=== PATIENT | male | born 1960 | race African-American/Black ===

== ENCOUNTER 2016-08-05 15:13 | Inpatient (IN) | payer OTHER ==
[2016-08-05] MEDS ORDERED: FENTANYL CITRATE INJ/PF 100 MCG/2 ML AMPUL ONE ×2 (15:20→16:14)
[2016-08-05] MEDS ORDERED: ONDANSETRON HCL INJ/PF 4 MG/2 ML SDV ONE (15:25)
[2016-08-05 15:26] LABS: ABSOLUTE EOSINOPHILS # (AUTO) 0.1 10^3/uL (0.0-0.6); ABSOLUTE LYMPHOCYTES (AUTO) 3.6 10^3/uL (0.5-4.7); ABSOLUTE MONOCYTES (AUTO) 0.9 10^3/uL (0.1-1.4); ABSOLUTE NEUT (AUTO) 3.8 10^3/uL (1.7-8.2); BASOPHILS % (AUTO) 0.4 % (0-2); EOSINOPHILS % (AUTO) 0.7 % (0-6); HEMOGLOBIN 12.7 g/dL (13.5-17.0); HGB HCT DIFFERENCE -0.9; MEAN CORPUSCULAR HEMOGLOBIN 30.2 pg (27.0-33.4); MEAN CORPUSCULAR HGB CONC 32.5 g/dL (32.0-36.0); MEAN CORPUSCULAR VOLUME 93 fl (80-97); MONOCYTES % (AUTO) 11.1 % (3-13); RED BLOOD COUNT 4.19 10^6/uL (4.35-5.55); RED CELL DISTRIBUTION WIDTH 12.8 % (11.5-14.0); SEGMENTED NEUTROPHILS % (AUTO) 44.8 % (42-78); WHITE BLOOD COUNT 8.5 10^3/uL (4.0-10.5)
[2016-08-05 15:39] LABS: ALANINE AMINOTRANSFERASE 25 U/L (21-72); ALBUMIN 3.6 g/dL (3.5-5.0); ALKALINE PHOSPHATASE 68 U/L (38-126); ANION GAP 13 (5-19); ASPARTATE AMINO TRANSFERASE 23 U/L (17-59); BILIRUBIN,TOTAL 0.4 mg/dL (0.2-1.3); BLOOD UREA NITROGEN 14 mg/dL (7-20); CALCIUM 9.1 mg/dL (8.4-10.2); CARBON DIOXIDE 24 mmol/L (22-30); CHLORIDE 106 mmol/L (98-107); CREATININE RESULT 0.95 mg/dL (0.52-1.25); GLUCOSE 146 mg/dL (75-110); POTASSIUM 3.8 mmol/L (3.6-5.0); SODIUM 142.5 mmol/L (137-145); TOTAL PROTEIN 5.9 g/dL (6.3-8.2)
[2016-08-05] MEDS ORDERED: NORMAL SALINE 1000 ML 1,000 ML IV ONE (16:02)
[2016-08-05 16:17] LABS: PARTIAL THROMBOPLASTIN TIME 25.3 SEC (23.5-35.8); PROTHROMBIN TIME 12.6 SEC (11.4-15.4)
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
[2016-08-05] MEDS ORDERED: DIPH/PERTUSS(ACELL)/TETANUS VAC/PF 0.5 ML SYR (>=10YO) IM ONE (16:53)
[2016-08-05] MEDS ORDERED: MORPHINE SULFATE 10 MG/ML INJ IV PRN (16:53)
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
[2016-08-05] MEDS ORDERED: ONDANSETRON HCL INJ/PF 4 MG/2 ML SDV IV PRN ×2 (17:16→22:04)
[2016-08-05] MEDS: NORMAL SALINE 1000 ML 1,000 ML IV PRN ×3 (17:55→22:16)
--- NOTE | 2016-08-05 19:09 | EKG REPORT ---
SEVERITY:- BORDERLINE ECG - SINUS RHYTHM NONSPECIFIC ST-T CHANGES LATERAL LEADS. : Confirmed by: Jeff Oliver MD 05-Aug-2016 19:08:18
[2016-08-05] MEDS ORDERED: RINGERS SOLUTION,LACTATED 1,000 ML IV PRN (22:04)
[2016-08-05] MEDS: MORPHINE SULFATE 10 MG/ML INJ IV PRN (22:41)
[2016-08-06] MEDS: MORPHINE SULFATE 10 MG/ML INJ IV PRN ×3 (00:33→07:48)
[2016-08-06] MEDS ORDERED: INFLUENZA ADLT QUAD (36MOS+) 2016-17 VAC 0.5 ML SYR IM PRN (03:02)
[2016-08-06 05:10] LABS: APPEARANCE,URINE CLEAR; BILIRUBIN,URINE NEGATIVE (NEGATIVE); GLUCOSE, URINE >=500 mg/dL (NEGATIVE); KETONES,URINE 20 mg/dL (NEGATIVE); LEUKOCYTE ESTERASE,URINE NEGATIVE (NEGATIVE); NITRITE,URINE NEGATIVE (NEGATIVE); PROTEIN,URINE NEGATIVE (NEGATIVE); URINE SPECIFIC GRAVITY 1.027; UROBILINOGEN,URINE NEGATIVE mg/dL (<2.0)
[2016-08-06 05:27] LABS: URINE BARBITURATES SCREEN NEGATIVE; URINE METHADONE SCREEN NEGATIVE; URINE PHENCYCLIDINE SCREEN NEGATIVE
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
[2016-08-06] MEDS ORDERED: DIPHENHYDRAMINE HCL 50 MG/ML VIAL IV PRN (09:17)
[2016-08-06] MEDS ORDERED: VECURONIUM BROMIDE INJ 10 MG VIAL IV ONE (10:39)
[2016-08-06] MEDS ORDERED: ONDANSETRON HCL INJ/PF 4 MG/2 ML SDV ONE (10:39)
[2016-08-06] MEDS ORDERED: LIDOCAINE 2% INJ-PF (20 MG/ML) 10 ML AMPUL ONE (10:39)
[2016-08-06] MEDS ORDERED: GLYCOPYRROLATE INJ 0.4 MG/2 ML VIAL ONE (10:39)
[2016-08-06] MEDS ORDERED: PHENYLEPHRINE HCL INJ/PF 10 MG/1 ML SDV ONE (10:39)
[2016-08-06] MEDS ORDERED: NEOSTIGMINE METHYLSULFATE 10 MG/10 ML VIAL ONE (10:39)
[2016-08-06] MEDS ORDERED: SUCCINYLCHOLINE CHLORIDE INJ 200 MG/10 ML VIAL ONE (10:39)
[2016-08-06] MEDS ORDERED: HYDROMORPHONE HCL INJ/PF 2 MG/ML AMPULE ONE (13:27)
[2016-08-06] MEDS ORDERED: FENTANYL CITRATE INJ/PF 250 MCG/5 ML AMPULE ONE (13:27)
[2016-08-06] MEDS ORDERED: MIDAZOLAM 2 MG/2 ML INJ ONE (13:27)
[2016-08-06] MEDS ORDERED: PROPOFOL INJ 200 MG/20 ML VIAL IV ONE (13:28)
[2016-08-06] MEDS ORDERED: CEFAZOLIN INJ 1 GM VIAL ONE (13:30)
[2016-08-06] MEDS ORDERED: MEPERIDINE HCL/PF INJ 25 MG/1 ML DISP.SYRIN IV PRN (15:04)
[2016-08-06] MEDS ORDERED: FENTANYL CITRATE INJ/PF 100 MCG/2 ML AMPUL IV PRN ×3 (15:04)
[2016-08-06] MEDS ORDERED: MORPHINE SULFATE 10 MG/ML INJ IV PRN ×2 (15:04→15:37)
[2016-08-06] MEDS ORDERED: PROMETHAZINE HCL INJ 25 MG/1 ML VIAL IV PRN ×2 (15:04)
--- NOTE | 2016-08-06 15:15 | Operative Report ---
Operative Report DATE OF SURGERY: 08/06/16 PREOPERATIVE DIAGNOSIS: Left femur fracture OPERATION: Open reduction and internal fixation of left femur fracture SURGEON: FOSTER POTTER ANESTHESIA: GA ESTIMATED BLOOD LOSS: 250 PROCEDURE: The patient's placed on the fracture table in a supine position and the left lower extremity was manipulated to effect a near-anatomic reduction. Of note it 's over distracted at the fracture site which I felt was acceptable. During the initial aspects of the open reduction internal fixation. Also, the proximal fragment is flexed an extra rotated consistent with continued attachment of the psoas. The left looks terms prepped and draped in a sterile fashion. A pin is placed percutaneously through the greater trochanter to down into the proximal metaphysis. A combined reamers used to fashion a cortical opening. A ball- tipped guide mindy is then through the proximal fragment into the distal fragment and then down into the suprapatellar region. Nail length measures 380 mm. Subsequently a [place] 3 gamma nail 11 x 3 80 x 130 his advanced over the ball- tipped guide mindy to appropriate depth the proximal interlock. A 95 mm proximal interlock is placed uneventfully. 3 cerclage cables were then placed around the comminuted aspect of the metadiaphysis. One of the cables, the proximal one , his used to help reduce the flexion and external rotation of the proximal fragment. At this point, the distraction was taken off the fracture table to allow the fracture to collapse. With fluoroscopic guidance the rotation across the fracture site is attempted to be reduced, although anatomic landmarks for this are difficult. This is done with one finger on the greater trochanter and rotating the foot such that the greater trochanter and the axis of the knee seemed to be collinear. Subsequently under fluoroscopic guidance a 52.5 mm distal interlock is placed uneventfully. The wounds irrigated and closed using interrupted Vicryl followed by flavia. Patient's returned to PACU in satisfactory condition.
[2016-08-06] MEDS ORDERED: OXYCODONE HCL IR 5 MG TABLET PO PRN (15:38)
[2016-08-06] MEDS ORDERED: ONDANSETRON 4 MG TAB.RAPDIS SL PRN (15:39)
[2016-08-06] MEDS ORDERED: DEXTROSE 50%-WATER SYRINGE 12.5 GM/25 ML DOSE IV PRN (15:42)
[2016-08-06] MEDS ORDERED: DEXTROSE 40% GEL 15 GM TUBE PO PRN (15:42)
[2016-08-06] MEDS ORDERED: DEXTROSE 40% GEL 15 GM TUBE X 2 PO PRN (15:42)
[2016-08-06] MEDS ORDERED: DEXTROSE 50%-WATER SYRINGE 25 GM/50 ML DOSE IV PRN (15:42)
[2016-08-06] MEDS ORDERED: GLUCAGON,HUMAN RECOMB 1 MG INJ IM PRN (15:42)
[2016-08-06] MEDS: FENTANYL CITRATE INJ/PF 100 MCG/2 ML AMPUL ONE ×2 (16:00→16:04)
[2016-08-06] MEDS ORDERED: PROMETHAZINE HCL INJ 25 MG/1 ML VIAL ONE (16:12)
[2016-08-06] MEDS: DIPHENHYDRAMINE HCL 50 MG/ML VIAL IV PRN ×2 (16:14→16:25)
[2016-08-06] MEDS ORDERED: NALOXONE HCL INJ/PF 0.4 MG/1 ML SDV IV ONE (18:27)
[2016-08-06] MEDS ORDERED: NORMAL SALINE 1000 ML 2,000 ML IV ONE (18:51)
[2016-08-06] MEDS ORDERED: NORMAL SALINE 1000 ML 1,000 ML IV PRN ×2 (18:51→19:25)
[2016-08-06] MEDS ORDERED: NALOXONE HCL INJ/PF 0.4 MG/1 ML SDV IV PRN (18:52)
[2016-08-06] MEDS ORDERED: INSULIN REG, HUMAN 100 UNIT/ML 3 ML VIAL (PYX) IV ONE (18:57)
[2016-08-06] MEDS ORDERED: PROMETHAZINE HCL 25 MG SUPP.RECT PR PRN ×2 (18:57→19:13)
[2016-08-06] MEDS ORDERED: DIPHENHYDRAMINE HCL 25 MG CAPSULE PO PRN (18:59)
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
[2016-08-06] MEDS ORDERED: TRANEXAMIC ACID INJ/PF 1,000 MG/10 ML SDV IV ONE ×5 (19:40→23:00)
[2016-08-06 19:56] LABS: PROTHROMBIN TIME 14.8 SEC (11.4-15.4)
[2016-08-06 19:57] LABS: PARTIAL THROMBOPLASTIN TIME 31.2 SEC (23.5-35.8)
[2016-08-06 20:03] LABS: FIBRINOGEN 282 mg/dL (209-497)
[2016-08-06 20:07] LABS: ABSOLUTE MONOCYTES (AUTO) 1.3 10^3/uL (0.1-1.4); ABSOLUTE NEUT (AUTO) 7.7 10^3/uL (1.7-8.2); BASOPHILS % (AUTO) 0.3 % (0-2); HEMATOCRIT 21.6 % (37.9-51.0); HGB HCT DIFFERENCE -0.6; MEAN CORPUSCULAR HEMOGLOBIN 30.3 pg (27.0-33.4); MEAN CORPUSCULAR HGB CONC 32.4 g/dL (32.0-36.0); MEAN CORPUSCULAR VOLUME 94 fl (80-97); MONOCYTES % (AUTO) 13.3 % (3-13); RED BLOOD COUNT 2.31 10^6/uL (4.35-5.55); RED CELL DISTRIBUTION WIDTH 12.9 % (11.5-14.0); SEGMENTED NEUTROPHILS % (AUTO) 76.4 % (42-78); WHITE BLOOD COUNT 10.1 10^3/uL (4.0-10.5)
[2016-08-06 20:08] LABS: ANION GAP 9 (5-19); BLOOD UREA NITROGEN 10 mg/dL (7-20); CARBON DIOXIDE 22 mmol/L (22-30); CHLORIDE 106 mmol/L (98-107); CREATININE RESULT 0.78 mg/dL (0.52-1.25); GLUCOSE 286 mg/dL (75-110); POTASSIUM 4.3 mmol/L (3.6-5.0); SODIUM 137.2 mmol/L (137-145)
[2016-08-06] MEDS: IBUPROFEN 800 MG in NORMAL SALINE 250 ML IV SCH (21:39)
[2016-08-06] MEDS ORDERED: RIVAROXABAN 10 MG TABLET PO SCH (22:00)
[2016-08-06] MEDS: INSULIN LISPRO 100 UNIT/ML 3 ML VIAL SUBCUT PRN (23:08)
[2016-08-06] MEDS: FENTANYL CITRATE INJ/PF 100 MCG/2 ML AMPUL IV PRN (23:08)
[2016-08-06] MEDS: SENNOSIDES/DOCUSATE 8.6-50 MG 1 EACH TABLET PO SCH (23:09)
[2016-08-07] MEDS: IBUPROFEN 800 MG in NORMAL SALINE 250 ML IV SCH ×3 (03:05→17:54)
[2016-08-07] MEDS: FENTANYL CITRATE INJ/PF 100 MCG/2 ML AMPUL IV PRN ×2 (03:13→10:14)
[2016-08-07 05:51] LABS: HEMATOCRIT 22.5 % (37.9-51.0); HGB HCT DIFFERENCE 0.3; LYMPHOCYTES % (AUTO) 12.8 % (13-45); MEAN CORPUSCULAR HEMOGLOBIN 30.3 pg (27.0-33.4); MEAN CORPUSCULAR HGB CONC 33.8 g/dL (32.0-36.0); MONOCYTES % (AUTO) 19.1 % (3-13); RED BLOOD COUNT 2.51 10^6/uL (4.35-5.55); RED CELL DISTRIBUTION WIDTH 14.4 % (11.5-14.0); SEGMENTED NEUTROPHILS % (AUTO) 67.9 % (42-78); WHITE BLOOD COUNT 10.6 10^3/uL (4.0-10.5)
[2016-08-07 05:52] LABS: ABSOLUTE LYMPHOCYTES (AUTO) 1.3 10^3/uL (0.5-4.7); ABSOLUTE NEUT (AUTO) 7.2 10^3/uL (1.7-8.2); BASOPHILS % (AUTO) 0.1 % (0-2); EOSINOPHILS % (AUTO) 0.1 % (0-6)
[2016-08-07 05:59] LABS: MEAN CORPUSCULAR VOLUME 90 fl (80-97)
[2016-08-07 06:01] LABS: HEMOGLOBIN 7.6 g/dL (13.5-17.0)
[2016-08-07 06:06] LABS: ANION GAP 6 (5-19); BLOOD UREA NITROGEN 7 mg/dL (7-20); CALCIUM 7.4 mg/dL (8.4-10.2); CARBON DIOXIDE 25 mmol/L (22-30); CHLORIDE 108 mmol/L (98-107); CREATININE RESULT 0.77 mg/dL (0.52-1.25); GLUCOSE 166 mg/dL (75-110); POTASSIUM 3.6 mmol/L (3.6-5.0); SODIUM 138.6 mmol/L (137-145)
[2016-08-07] MEDS ORDERED: NORMAL SALINE 250 ML IV PRN ×3 (06:37→07:23)
[2016-08-07 06:38] LABS: MAGNESIUM 1.2 mg/dL (1.6-2.3)
[2016-08-07] MEDS: ACETAMINOPHEN 325 MG TABLET PO PRN (06:40)
[2016-08-07] MEDS ORDERED: MAGNESIUM SULFATE/D5W 1 GM/100 ML RTUPB IV ONE (06:53)
[2016-08-07] MEDS ORDERED: FUROSEMIDE INJ/PF 20 MG/2 ML SDV IV ONE ×2 (07:55→14:30)
--- NOTE | 2016-08-07 07:59 | PDOC PROGRESS REPORT ---
Subjective Progress Note for:: 08/07/16 Subjective:: Patient with significant complaints of pain Physical Exam Vital Signs: Temp Pulse Resp BP Pulse Ox 37.2 C 120 H 18 131/65 H 98 08/07/16 06:50 08/07/16 06:50 08/07/16 06:50 08/07/16 06:50 08/07/16 06:50 Intake & Output 08/06/16 08/07/16 08/08/16 06:59 06:59 06:59 Intake Total 336 7800 Output Total 650 1950 Balance -314 5850 Weight 60.4 kg General appearance: PRESENT: mild distress Head exam: PRESENT: normocephalic Eye exam: PRESENT: EOMI Respiratory exam: PRESENT: unlabored Cardiovascular exam: PRESENT: RRR Pulses: PRESENT: +1 pedal pulses bilateral Vascular exam: PRESENT: normal capillary refill GI/Abdominal exam: PRESENT: soft Rectal exam: PRESENT: deferred Extremities exam: PRESENT: other - Left lower extremity dressing change. Wound is well approximated without erythema. There is serosanguineous drainage expressible from the central wound. Proximal and distal wounds appear to be relatively dry. Neurological exam: PRESENT: alert, awake, oriented to person, oriented to place , oriented to time, oriented to situation, CN II-XII grossly intact. ABSENT: motor sensory deficit Psychiatric exam: PRESENT: appropriate affect, normal mood. ABSENT: homicidal ideation, suicidal ideation Results Laboratory Results: 08/07/16 00:43 08/07/16 04:32 08/06/16 08/06/16 08/07/16 19:36 19:36 00:43 WBC 10.1 10.6 H RBC 2.31 L 2.51 L Hgb 7.0 L D 7.6 L Hct 21.6 L 22.5 L MCV 94 90 D MCH 30.3 30.3 MCHC 32.4 33.8 RDW 12.9 14.4 H Plt Count 150 129 L Seg Neutrophils % 76.4 67.9 Lymphocytes % 10.0 L 12.8 L Monocytes % 13.3 H 19.1 H Eosinophils % 0.0 0.1 Basophils % 0.3 0.1 Absolute Neutrophils 7.7 7.2 Absolute Lymphocytes 1.0 1.3 Absolute Monocytes 1.3 2.0 H Absolute Eosinophils 0.0 0.0 Absolute Basophils 0.0 0.0 Sodium 137.2 Potassium 4.3 Chloride 106 Carbon Dioxide 22 Anion Gap 9 BUN 10 Creatinine 0.78 Est GFR ( Amer) > 60 Est GFR (Non-Af Amer) > 60 Glucose 286 H Calcium 8.0 L Magnesium 08/07/16 04:32 WBC RBC Hgb Hct MCV MCH MCHC RDW Plt Count Seg Neutrophils % Lymphocytes % Monocytes % Eosinophils % Basophils % Absolute Neutrophils Absolute Lymphocytes Absolute Monocytes Absolute Eosinophils Absolute Basophils Sodium 138.6 Potassium 3.6 Chloride 108 H Carbon Dioxide 25 Anion Gap 6 BUN 7 Creatinine 0.77 Est GFR ( Amer) > 60 Est GFR (Non-Af Amer) > 60 Glucose 166 H Calcium 7.4 L Magnesium 1.2 L* Impressions: Abdomen/Pelvis CT 08/05/16 15:19 IMPRESSION: 1. No traumatic vascular, solid organ, hollow viscous organ, or bony injury identified within the chest, abdomen, or pelvis. 2. Partially visualized comminuted fracture of the proximal diaphysis of the left femur. Please see separate report from the lower extremity for full details regarding the finding. Cervical Spine CT 08/05/16 15:19 IMPRESSION: CHRONIC DEGENERATIVE CHANGES. NO ACUTE FINDINGS. Nodular density noted in the left lung apex likely representing scar versus underlying nodule. Chest CT 08/05/16 15:19 IMPRESSION: 1. No traumatic vascular, solid organ, hollow viscous organ, or bony injury identified within the chest, abdomen, or pelvis. 2. Partially visualized comminuted fracture of the proximal diaphysis of the left femur. Please see separate report from the lower extremity for full details regarding the finding. Chest X-Ray 08/05/16 15:19 IMPRESSION: No acute abnormality identified Head CT 08/05/16 15:19 IMPRESSION: No acute intracranial abnormality identified. Small posterior scalp hematoma. No skull fracture. Hip X-Ray 08/05/16 15:19 IMPRESSION: Comminuted fracture of the proximal diaphysis of the left femur with multiple small butterfly fragment seen throughout. The distal fragment appears to be proximally and medially displaced relation to more proximal fragment. No other fractures identified. Hand X-Ray 08/05/16 15:25 IMPRESSION: 1. Linear fracture through the base of the 1st metacarpal on the left. Obliquely oriented fracture through the lateral aspect of the distal 5th proximal phalanx. There is minimal displacement of the fracture fragments. 2. No acute fracture or dislocation identified in the right hand. Lower Extremity CT 08/05/16 15:26 IMPRESSION: Highly comminuted proximal left femoral diaphysis fracture at and just distal the level of the left lesser trochanter. There is angulation and foreshortening at the fracture site Femur X-Ray 08/06/16 00:00 IMPRESSION: Intra procedural imaging and fluoro Fluoroscopy 08/06/16 00:00 IMPRESSION: Intra procedural imaging and fluoro Assessment & Plan - Diagnosis (1) Diabetes Qualifiers: Diabetes mellitus type: type 2 Diabetes mellitus complication status: with neurologic complications Diabetes mellitus complication detail: with polyneuropathy Diabetes mellitus chcf insulin use: with chcf use Qualified Code(s): E11.42 - Type 2 diabetes mellitus with diabetic polyneuropathy; Z79.4 - jail (current) use of insulin Is this a current diagnosis for this admission?: YesPlan: Diabetes with moderate control under the Humalog sliding scale (2) Fracture of proximal end of left femur Qualifiers: Encounter type: initial encounter Fracture type: closed Qualified Code(s): S72.002A - Fracture of unspecified part of neck of left femur, initial encounter for closed fracture Is this a current diagnosis for this admission?: YesPlan: Patient is postop day #1 status post open reduction and fixation of a highly comminuted left proximal femur fracture sustained a high-energy injury. Plan will be to mobilize and a weightbearing as tolerated basis. When medical condition permits. (3) Acute blood loss as cause of postoperative anemia Is this a current diagnosis for this admission?: YesPlan: Patient with a low hematocrit who received 2 units of packed red blood cells last night and continued hematocrit of approximately 21%. Additional blood has been ordered by myself as well as Dr. Faust. Plan will be for repeat hematocrit later today - Time Time Spent with patient: 15-24 minutes Anticipated discharge: Home with Homehealth Within: within 72 hours
[2016-08-07] MEDS ORDERED: DIAZEPAM 5 MG TABLET PO PRN (08:00)
[2016-08-07] MEDS ORDERED: OLANZAPINE 5 MG TAB.RAPDIS PO PRN (08:02)
[2016-08-07] MEDS: MAGNESIUM SULFATE 1 GM/D5W 100 ML IV SCH ×2 (08:24→08:41)
[2016-08-07] MEDS ORDERED: POTASSIUM CHLORIDE 10 MEQ TABLET.SA PO ONE (08:30)
[2016-08-07] MEDS: HUM INSULIN NPH/REG INSULIN HM 100 UNIT/1 ML 3 ML SUBCUT SCH ×2 (08:42→16:52)
[2016-08-07] MEDS ORDERED: (PENDING PHARMACY ID) (Insulin Aspart [Novolog Flexpen] 10 UNITS) SQ SCH (10:00)
[2016-08-07] MEDS: GABAPENTIN 300 MG CAPSULE PO SCH ×3 (10:16→17:53)
[2016-08-07] MEDS: MAGNESIUM OXIDE 400 MG TABLET PO SCH ×3 (10:16→17:53)
[2016-08-07] MEDS: DOCUSATE SODIUM 100 MG CAPSULE PO SCH ×2 (10:16→17:53)
[2016-08-07] MEDS ORDERED: FENTANYL CITRATE INJ/PF 100 MCG/2 ML AMPUL IV PRN (12:36)
[2016-08-07] MEDS: INSULIN LISPRO 100 UNIT/ML 3 ML VIAL SUBCUT SCH ×2 (13:29→17:55)
--- NOTE | 2016-08-07 14:52 | PDOC PROGRESS REPORT ---
Subjective Progress Note for:: 08/07/16 Subjective:: Patient is drifting off during my questioning. Pain is well-controlled. Patient denies chest pain, shortness of breath, abdominal pain, nausea, vomiting , fevers, chills, diarrhea, constipation, headache. Physical Exam Vital Signs: Temp Pulse Resp BP Pulse Ox 99 F 120 H 18 131/65 H 98 08/07/16 06:50 08/07/16 06:50 08/07/16 06:50 08/07/16 06:50 08/07/16 06:50 Intake & Output 08/06/16 08/07/16 08/08/16 06:59 06:59 06:59 Intake Total 336 7800 Output Total 650 1950 Balance -314 5850 Weight 60.4 kg Exam: General: Sleepy, but arouses easily, no acute respiratory distress HEENT: AT/NC, PERRL, EOMI, oropharynx is moist, pink, no scleral icterus, no conjunctival injection Neck: No JVD, trachea midline Chest: Clear to auscultation bilaterally, no wheezes rhonchi or rales CV: Tachycardic, Regular rate and rhythm, normal S1 and S2, no murmur, rub, or gallop Abdomen: Soft, nontender to palpation, nondistended, active bowel sounds; no rebound, rigidity, or guarding Extremities: No cyanosis, clubbing; significant left leg edema Neuro: Cranial nerves II through XII are grossly intact without focal deficits Psych: Normal mood and affect Results Laboratory Results: 08/07/16 00:43 08/07/16 04:32 08/06/16 08/06/16 08/07/16 19:36 19:36 00:43 WBC 10.1 10.6 H RBC 2.31 L 2.51 L Hgb 7.0 L D 7.6 L Hct 21.6 L 22.5 L MCV 94 90 D MCH 30.3 30.3 MCHC 32.4 33.8 RDW 12.9 14.4 H Plt Count 150 129 L Seg Neutrophils % 76.4 67.9 Lymphocytes % 10.0 L 12.8 L Monocytes % 13.3 H 19.1 H Eosinophils % 0.0 0.1 Basophils % 0.3 0.1 Absolute Neutrophils 7.7 7.2 Absolute Lymphocytes 1.0 1.3 Absolute Monocytes 1.3 2.0 H Absolute Eosinophils 0.0 0.0 Absolute Basophils 0.0 0.0 Sodium 137.2 Potassium 4.3 Chloride 106 Carbon Dioxide 22 Anion Gap 9 BUN 10 Creatinine 0.78 Est GFR ( Amer) > 60 Est GFR (Non-Af Amer) > 60 Glucose 286 H Calcium 8.0 L Magnesium 08/07/16 04:32 WBC RBC Hgb Hct MCV MCH MCHC RDW Plt Count Seg Neutrophils % Lymphocytes % Monocytes % Eosinophils % Basophils % Absolute Neutrophils Absolute Lymphocytes Absolute Monocytes Absolute Eosinophils Absolute Basophils Sodium 138.6 Potassium 3.6 Chloride 108 H Carbon Dioxide 25 Anion Gap 6 BUN 7 Creatinine 0.77 Est GFR ( Amer) > 60 Est GFR (Non-Af Amer) > 60 Glucose 166 H Calcium 7.4 L Magnesium 1.2 L* Impressions: Abdomen/Pelvis CT 08/05/16 15:19 IMPRESSION: 1. No traumatic vascular, solid organ, hollow viscous organ, or bony injury identified within the chest, abdomen, or pelvis. 2. Partially visualized comminuted fracture of the proximal diaphysis of the left femur. Please see separate report from the lower extremity for full details regarding the finding. Cervical Spine CT 08/05/16 15:19 IMPRESSION: CHRONIC DEGENERATIVE CHANGES. NO ACUTE FINDINGS. Nodular density noted in the left lung apex likely representing scar versus underlying nodule. Chest CT 08/05/16 15:19 IMPRESSION: 1. No traumatic vascular, solid organ, hollow viscous organ, or bony injury identified within the chest, abdomen, or pelvis. 2. Partially visualized comminuted fracture of the proximal diaphysis of the left femur. Please see separate report from the lower extremity for full details regarding the finding. Chest X-Ray 08/05/16 15:19 IMPRESSION: No acute abnormality identified Head CT 08/05/16 15:19 IMPRESSION: No acute intracranial abnormality identified. Small posterior scalp hematoma. No skull fracture. Hip X-Ray 08/05/16 15:19 IMPRESSION: Comminuted fracture of the proximal diaphysis of the left femur with multiple small butterfly fragment seen throughout. The distal fragment appears to be proximally and medially displaced relation to more proximal fragment. No other fractures identified. Hand X-Ray 08/05/16 15:25 IMPRESSION: 1. Linear fracture through the base of the 1st metacarpal on the left. Obliquely oriented fracture through the lateral aspect of the distal 5th proximal phalanx. There is minimal displacement of the fracture fragments. 2. No acute fracture or dislocation identified in the right hand. Lower Extremity CT 08/05/16 15:26 IMPRESSION: Highly comminuted proximal left femoral diaphysis fracture at and just distal the level of the left lesser trochanter. There is angulation and foreshortening at the fracture site Femur X-Ray 08/06/16 00:00 IMPRESSION: Intra procedural imaging and fluoro Fluoroscopy 08/06/16 00:00 IMPRESSION: Intra procedural imaging and fluoro Assessment & Plan - Diagnosis (1) Acute metabolic encephalopathy Is this a current diagnosis for this admission?: YesPlan: Resolved. Continue when necessary Narcan. Will decrease patient's IV fentanyl at this time as his last dose was more than 2 hours ago and he still quite lethargic. (2) Cocaine abuse Is this a current diagnosis for this admission?: YesPlan: Avoid beta blockers. When necessary Valium and Zyprexa (3) Diabetic neuropathy Qualifiers: Diabetes mellitus type: type 1 Diabetes mellitus complication detail: diabetic polyneuropathy Qualified Code(s): E10.42 - Type 1 diabetes mellitus with diabetic polyneuropathy Is this a current diagnosis for this admission?: YesPlan: Continue Neurontin (4) Abrasions of multiple sites Is this a current diagnosis for this admission?: Yes (5) Diabetes Qualifiers: Diabetes mellitus type: type 2 Diabetes mellitus complication status: with neurologic complications Diabetes mellitus complication detail: with polyneuropathy Diabetes mellitus correction insulin use: with lumber trimmer use Qualified Code(s): E11.42 - Type 2 diabetes mellitus with diabetic polyneuropathy; 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 Have advised mother that Moriah is not on his diabetic diet. Have emphasized the need for good glucose control for wound management. (6) Fracture of proximal end of left femur Qualifiers: Encounter type: initial encounter Fracture type: closed Qualified Code(s): S72.002A - Fracture of unspecified part of neck of left femur, initial encounter for closed fracture Is this a current diagnosis for this admission?: YesPlan: Defer to orthopedics. Postoperative day #1 (7) Acute blood loss as cause of postoperative anemia Is this a current diagnosis for this admission?: YesPlan: Patient will receive 3 units of packed red blood cells and then we will recheck a CBC prior to giving any others. (8) Hypomagnesemia Is this a current diagnosis for this admission?: YesPlan: We'll replete and recheck - Time Time Spent with patient: 25-34 minutes Medications reviewed and adjusted accordingly: Yes
[2016-08-07 15:35] LABS: ABSOLUTE LYMPHOCYTES (AUTO) 1.7 10^3/uL (0.5-4.7); ABSOLUTE MONOCYTES (AUTO) 1.5 10^3/uL (0.1-1.4); ABSOLUTE NEUT (AUTO) 6.8 10^3/uL (1.7-8.2); BASOPHILS % (AUTO) 0.2 % (0-2); EOSINOPHILS % (AUTO) 0.1 % (0-6); HEMATOCRIT 26.8 % (37.9-51.0); HEMOGLOBIN 8.9 g/dL (13.5-17.0); HGB HCT DIFFERENCE -0.1; MEAN CORPUSCULAR HGB CONC 33.2 g/dL (32.0-36.0); MEAN CORPUSCULAR VOLUME 91 fl (80-97); MONOCYTES % (AUTO) 14.5 % (3-13); RED BLOOD COUNT 2.96 10^6/uL (4.35-5.55); RED CELL DISTRIBUTION WIDTH 14.3 % (11.5-14.0); SEGMENTED NEUTROPHILS % (AUTO) 68.2 % (42-78)
[2016-08-07 16:00] LABS: ANION GAP 8 (5-19); BLOOD UREA NITROGEN 7 mg/dL (7-20); CALCIUM 7.7 mg/dL (8.4-10.2); CARBON DIOXIDE 23 mmol/L (22-30); CHLORIDE 107 mmol/L (98-107); CREATININE RESULT 0.71 mg/dL (0.52-1.25); GLUCOSE 187 mg/dL (75-110); POTASSIUM 3.8 mmol/L (3.6-5.0); SODIUM 137.5 mmol/L (137-145)
[2016-08-07] MEDS: OXYCODONE HCL IR 5 MG TABLET PO PRN (21:51)
[2016-08-07] MEDS: SENNOSIDES/DOCUSATE 8.6-50 MG 1 EACH TABLET PO SCH (21:52)
[2016-08-07] MEDS: INSULIN LISPRO 100 UNIT/ML 3 ML VIAL SUBCUT PRN (21:55)
[2016-08-08] MEDS: IBUPROFEN 800 MG in NORMAL SALINE 250 ML IV SCH ×2 (01:18→09:02)
[2016-08-08 06:42] LABS: ABSOLUTE EOSINOPHILS # (AUTO) 0.1 10^3/uL (0.0-0.6); ABSOLUTE LYMPHOCYTES (AUTO) 1.6 10^3/uL (0.5-4.7); ABSOLUTE MONOCYTES (AUTO) 1.5 10^3/uL (0.1-1.4); ABSOLUTE NEUT (AUTO) 7.1 10^3/uL (1.7-8.2); BASOPHILS % (AUTO) 0.3 % (0-2); EOSINOPHILS % (AUTO) 0.8 % (0-6); HEMATOCRIT 23.4 % (37.9-51.0); HEMOGLOBIN 8.1 g/dL (13.5-17.0); HGB HCT DIFFERENCE 0.9; LYMPHOCYTES % (AUTO) 15.4 % (13-45); MEAN CORPUSCULAR HEMOGLOBIN 30.7 pg (27.0-33.4); MEAN CORPUSCULAR HGB CONC 34.6 g/dL (32.0-36.0); MEAN CORPUSCULAR VOLUME 89 fl (80-97); MONOCYTES % (AUTO) 14.9 % (3-13); RED BLOOD COUNT 2.64 10^6/uL (4.35-5.55); RED CELL DISTRIBUTION WIDTH 14.1 % (11.5-14.0); SEGMENTED NEUTROPHILS % (AUTO) 68.6 % (42-78); WHITE BLOOD COUNT 10.3 10^3/uL (4.0-10.5)
[2016-08-08] MEDS: OXYCODONE HCL IR 5 MG TABLET PO PRN ×4 (06:46→22:43)
[2016-08-08 07:19] LABS: BLOOD UREA NITROGEN 6 mg/dL (7-20); CALCIUM 7.7 mg/dL (8.4-10.2); CHLORIDE 110 mmol/L (98-107); CREATININE RESULT 0.75 mg/dL (0.52-1.25); GLUCOSE 218 mg/dL (75-110); POTASSIUM 3.8 mmol/L (3.6-5.0)
[2016-08-08 07:34] LABS: ANION GAP 5 (5-19); CARBON DIOXIDE 24 mmol/L (22-30); SODIUM 139.1 mmol/L (137-145)
[2016-08-08] MEDS: INSULIN LISPRO 100 UNIT/ML 3 ML VIAL SUBCUT SCH ×3 (09:01→17:52)
[2016-08-08] MEDS: ACETAMINOPHEN 325 MG TABLET PO PRN ×2 (09:02→13:45)
[2016-08-08] MEDS: MAGNESIUM OXIDE 400 MG TABLET PO SCH ×3 (09:03→17:52)
[2016-08-08] MEDS: GABAPENTIN 300 MG CAPSULE PO SCH ×3 (09:03→17:52)
[2016-08-08] MEDS: DOCUSATE SODIUM 100 MG CAPSULE PO SCH ×2 (09:03→17:52)
--- NOTE | 2016-08-08 10:05 | PDOC PROGRESS REPORT ---
Subjective Progress Note for:: 08/08/16 Subjective:: Patient reports less pain than previously Physical Exam Vital Signs: Temp Pulse Resp BP Pulse Ox 37.2 C 102 H 16 119/69 98 08/08/16 08:00 08/08/16 08:00 08/08/16 08:00 08/08/16 08:00 08/08/16 08:00 Intake & Output 08/07/16 08/08/16 08/09/16 06:59 06:59 06:59 Intake Total 7800 1500 Output Total 1950 400 Balance 5850 1100 General appearance: PRESENT: mild distress Head exam: PRESENT: normocephalic Eye exam: PRESENT: EOMI Pulses: PRESENT: +1 pedal pulses bilateral Vascular exam: PRESENT: normal capillary refill GI/Abdominal exam: PRESENT: soft Extremities exam: PRESENT: other - Reinforce dressings on the left lower extremity are intact with minor drainage. Leg lengths are equal. Distal neurovascular examinations intact. Results Laboratory Results: 08/08/16 06:03 08/08/16 06:03 08/07/16 08/07/16 08/07/16 15:26 15:26 15:26 WBC 10.0 RBC 2.96 L Hgb 8.9 L Hct 26.8 L MCV 91 MCH 30.0 MCHC 33.2 RDW 14.3 H Plt Count 119 L Seg Neutrophils % 68.2 Lymphocytes % 17.0 Monocytes % 14.5 H Eosinophils % 0.1 Basophils % 0.2 Absolute Neutrophils 6.8 Absolute Lymphocytes 1.7 Absolute Monocytes 1.5 H Absolute Eosinophils 0.0 Absolute Basophils 0.0 Sodium 137.5 Potassium 3.8 Chloride 107 Carbon Dioxide 23 Anion Gap 8 BUN 7 Creatinine 0.71 Est GFR ( Amer) > 60 Est GFR (Non-Af Amer) > 60 Glucose 187 H Calcium 7.7 L Magnesium 2.0 08/08/16 08/08/16 06:03 06:03 WBC 10.3 RBC 2.64 L Hgb 8.1 L Hct 23.4 L MCV 89 MCH 30.7 MCHC 34.6 RDW 14.1 H Plt Count 113 L Seg Neutrophils % 68.6 Lymphocytes % 15.4 Monocytes % 14.9 H Eosinophils % 0.8 Basophils % 0.3 Absolute Neutrophils 7.1 Absolute Lymphocytes 1.6 Absolute Monocytes 1.5 H Absolute Eosinophils 0.1 Absolute Basophils 0.0 Sodium 139.1 Potassium 3.8 Chloride 110 H Carbon Dioxide 24 Anion Gap 5 BUN 6 L Creatinine 0.75 Est GFR ( Amer) > 60 Est GFR (Non-Af Amer) > 60 Glucose 218 H Calcium 7.7 L Magnesium 2.0 Impressions: Abdomen/Pelvis CT 08/05/16 15:19 IMPRESSION: 1. No traumatic vascular, solid organ, hollow viscous organ, or bony injury identified within the chest, abdomen, or pelvis. 2. Partially visualized comminuted fracture of the proximal diaphysis of the left femur. Please see separate report from the lower extremity for full details regarding the finding. Cervical Spine CT 08/05/16 15:19 IMPRESSION: CHRONIC DEGENERATIVE CHANGES. NO ACUTE FINDINGS. Nodular density noted in the left lung apex likely representing scar versus underlying nodule. Chest CT 08/05/16 15:19 IMPRESSION: 1. No traumatic vascular, solid organ, hollow viscous organ, or bony injury identified within the chest, abdomen, or pelvis. 2. Partially visualized comminuted fracture of the proximal diaphysis of the left femur. Please see separate report from the lower extremity for full details regarding the finding. Chest X-Ray 08/05/16 15:19 IMPRESSION: No acute abnormality identified Head CT 08/05/16 15:19 IMPRESSION: No acute intracranial abnormality identified. Small posterior scalp hematoma. No skull fracture. Hip X-Ray 08/05/16 15:19 IMPRESSION: Comminuted fracture of the proximal diaphysis of the left femur with multiple small butterfly fragment seen throughout. The distal fragment appears to be proximally and medially displaced relation to more proximal fragment. No other fractures identified. Hand X-Ray 08/05/16 15:25 IMPRESSION: 1. Linear fracture through the base of the 1st metacarpal on the left. Obliquely oriented fracture through the lateral aspect of the distal 5th proximal phalanx. There is minimal displacement of the fracture fragments. 2. No acute fracture or dislocation identified in the right hand. Lower Extremity CT 08/05/16 15:26 IMPRESSION: Highly comminuted proximal left femoral diaphysis fracture at and just distal the level of the left lesser trochanter. There is angulation and foreshortening at the fracture site Femur X-Ray 08/06/16 00:00 IMPRESSION: Intra procedural imaging and fluoro Fluoroscopy 08/06/16 00:00 IMPRESSION: Intra procedural imaging and fluoro Assessment & Plan - Diagnosis (1) Diabetes Qualifiers: Diabetes mellitus type: type 2 Diabetes mellitus complication status: with neurologic complications Diabetes mellitus complication detail: with polyneuropathy Diabetes mellitus fdc insulin use: with fdc use Qualified Code(s): E11.42 - Type 2 diabetes mellitus with diabetic polyneuropathy; Z79.4 - intermediate teacher (current) use of insulin Is this a current diagnosis for this admission?: YesPlan: Patient has moderate control with blood glucose was running in the upper 200s on his current medication regimen (2) Fracture of proximal end of left femur Qualifiers: Encounter type: initial encounter Fracture type: closed Qualified Code(s): S72.002A - Fracture of unspecified part of neck of left femur, initial encounter for closed fracture Is this a current diagnosis for this admission?: YesPlan: Status post open reduction, she'll fixation of a left proximal femur fracture. Patient can be mobilized with physical therapy and weightbearing to comfort basis (3) Acute blood loss as cause of postoperative anemia Is this a current diagnosis for this admission?: YesPlan: Current hematocrit is 23% after transfusions - Time Time Spent with patient: 15-24 minutes Anticipated discharge: SNF Within: within 36 hours
[2016-08-08] MEDS ORDERED: METFORMIN HCL 500 MG TABLET PO ONE (10:15)
[2016-08-08] MEDS: INSULIN LISPRO 100 UNIT/ML 3 ML VIAL SUBCUT PRN (12:29)
[2016-08-08] MEDS: HUM INSULIN NPH/REG INSULIN HM 100 UNIT/1 ML 3 ML SUBCUT SCH (16:29)
[2016-08-08] MEDS: METFORMIN HCL 500 MG TABLET PO SCH (16:29)
--- NOTE | 2016-08-08 19:42 | PDOC PROGRESS REPORT ---
Subjective Progress Note for:: 08/08/16 Subjective:: Patient is quite lethargic when I visited him. He continues to fall sleep during my examination. He reports however that he dropped a pain pill in His bed and didn't take it. Would like another. Patient has been refusing senna. He has not had a bowel movement since his surgery. Patient denies chest pain, shortness of breath, abdominal pain, nausea, vomiting, fevers, chills, diarrhea , headache, new onset weakness. Patient is constipated. Physical Exam Vital Signs: Temp Pulse Resp BP Pulse Ox 98.0 F 100 16 115/47 L 98 08/08/16 12:00 08/08/16 14:00 08/08/16 12:00 08/08/16 12:00 08/08/16 12:00 Intake & Output 08/07/16 08/08/16 08/09/16 06:59 06:59 06:59 Intake Total 7800 1500 941 Output Total 1950 400 600 Balance 5850 1100 341 Exam: General: Sleepy, but arouses easily, no acute respiratory distress HEENT: AT/NC, PERRL, EOMI, oropharynx is moist, pink, no scleral icterus, no conjunctival injection Neck: No JVD, trachea midline Chest: Clear to auscultation bilaterally, no wheezes rhonchi or rales CV: Tachycardic, Regular rate and rhythm, normal S1 and S2, no murmur, rub, or gallop Abdomen: Soft, nontender to palpation, mildly distended, hypo-active bowel sounds; no rebound, rigidity, or guarding Extremities: No cyanosis, clubbing; significant left leg edema Neuro: Cranial nerves II through XII are grossly intact without focal deficits Psych: Normal mood and affect Results Laboratory Results: 08/08/16 06:03 08/08/16 06:03 08/08/16 08/08/16 06:03 06:03 WBC 10.3 RBC 2.64 L Hgb 8.1 L Hct 23.4 L MCV 89 MCH 30.7 MCHC 34.6 RDW 14.1 H Plt Count 113 L Seg Neutrophils % 68.6 Lymphocytes % 15.4 Monocytes % 14.9 H Eosinophils % 0.8 Basophils % 0.3 Absolute Neutrophils 7.1 Absolute Lymphocytes 1.6 Absolute Monocytes 1.5 H Absolute Eosinophils 0.1 Absolute Basophils 0.0 Sodium 139.1 Potassium 3.8 Chloride 110 H Carbon Dioxide 24 Anion Gap 5 BUN 6 L Creatinine 0.75 Est GFR ( Amer) > 60 Est GFR (Non-Af Amer) > 60 Glucose 218 H Calcium 7.7 L Magnesium 2.0 08/07/16 06:15 Nasophary ([facility] Only) MRSA Surveillance Culture - Final NO MRSA RECOVERED Impressions: Abdomen/Pelvis CT 08/05/16 15:19 IMPRESSION: 1. No traumatic vascular, solid organ, hollow viscous organ, or bony injury identified within the chest, abdomen, or pelvis. 2. Partially visualized comminuted fracture of the proximal diaphysis of the left femur. Please see separate report from the lower extremity for full details regarding the finding. Cervical Spine CT 08/05/16 15:19 IMPRESSION: CHRONIC DEGENERATIVE CHANGES. NO ACUTE FINDINGS. Nodular density noted in the left lung apex likely representing scar versus underlying nodule. Chest CT 08/05/16 15:19 IMPRESSION: 1. No traumatic vascular, solid organ, hollow viscous organ, or bony injury identified within the chest, abdomen, or pelvis. 2. Partially visualized comminuted fracture of the proximal diaphysis of the left femur. Please see separate report from the lower extremity for full details regarding the finding. Chest X-Ray 08/05/16 15:19 IMPRESSION: No acute abnormality identified Head CT 08/05/16 15:19 IMPRESSION: No acute intracranial abnormality identified. Small posterior scalp hematoma. No skull fracture. Hip X-Ray 08/05/16 15:19 IMPRESSION: Comminuted fracture of the proximal diaphysis of the left femur with multiple small butterfly fragment seen throughout. The distal fragment appears to be proximally and medially displaced relation to more proximal fragment. No other fractures identified. Hand X-Ray 08/05/16 15:25 IMPRESSION: 1. Linear fracture through the base of the 1st metacarpal on the left. Obliquely oriented fracture through the lateral aspect of the distal 5th proximal phalanx. There is minimal displacement of the fracture fragments. 2. No acute fracture or dislocation identified in the right hand. Lower Extremity CT 08/05/16 15:26 IMPRESSION: Highly comminuted proximal left femoral diaphysis fracture at and just distal the level of the left lesser trochanter. There is angulation and foreshortening at the fracture site Femur X-Ray 08/06/16 00:00 IMPRESSION: Intra procedural imaging and fluoro Fluoroscopy 08/06/16 00:00 IMPRESSION: Intra procedural imaging and fluoro Assessment & Plan - Diagnosis (1) Acute metabolic encephalopathy Is this a current diagnosis for this admission?: YesPlan: Resolved. Continue when necessary Narcan. Stop patient's IV fentanyl at this time as his last dose was more than 12 hours ago. Patient is quite lethargic. (2) Cocaine abuse Is this a current diagnosis for this admission?: YesPlan: Avoid beta blockers. When necessary Valium and Zyprexa (3) Diabetic neuropathy Qualifiers: Diabetes mellitus type: type 1 Diabetes mellitus complication detail: diabetic polyneuropathy Qualified Code(s): E10.42 - Type 1 diabetes mellitus with diabetic polyneuropathy Is this a current diagnosis for this admission?: YesPlan: Continue Neurontin (4) Abrasions of multiple sites Is this a current diagnosis for this admission?: Yes (5) Diabetes Qualifiers: Diabetes mellitus type: type 2 Diabetes mellitus complication status: with neurologic complications Diabetes mellitus complication detail: with polyneuropathy Diabetes mellitus tank terminal gauger insulin use: with tank terminal gauger use Qualified Code(s): E11.42 - Type 2 diabetes mellitus with diabetic polyneuropathy; Z79.4 - group home (current) use of insulin Is this a current diagnosis for this admission?: YesPlan: On 70/30 and continue sliding scale. Increased patient's 70/30 12 units twice a day. Have added metformin. (6) Fracture of proximal end of left femur Qualifiers: Encounter type: initial encounter Fracture type: closed Qualified Code(s): S72.002A - Fracture of unspecified part of neck of left femur, initial encounter for closed fracture Is this a current diagnosis for this admission?: YesPlan: Defer to orthopedics. Postoperative day #2 (7) Acute blood loss as cause of postoperative anemia Is this a current diagnosis for this admission?: YesPlan: Patient received 3 units of packed red blood cells on 08/07/2016. Currently trending down, but stable. Will transfuse if below 8. (8) Hypomagnesemia Is this a current diagnosis for this admission?: Yes - Time Time Spent with patient: 15-24 minutes Medications reviewed and adjusted accordingly: Yes
[2016-08-08] MEDS: SENNOSIDES/DOCUSATE 8.6-50 MG 1 EACH TABLET PO SCH (22:26)
[2016-08-09] MEDS: ACETAMINOPHEN 325 MG TABLET PO PRN ×2 (04:16→19:52)
--- NOTE | 2016-08-09 06:51 | PDOC PROGRESS REPORT ---
Subjective Progress Note for:: 08/09/16 Subjective:: Patient complaining of constipation and inability to move the left lower extremity Physical Exam Vital Signs: Temp Pulse Resp BP Pulse Ox 36.7 C 120 H 16 115/47 L 98 08/08/16 12:00 08/09/16 02:00 08/08/16 12:00 08/08/16 12:00 08/08/16 12:00 Intake & Output 08/07/16 08/08/16 08/09/16 06:59 06:59 06:59 Intake Total 7800 1500 947 Output Total 8657 682 5365 Balance 5850 1100 -953 General appearance: PRESENT: mild distress Head exam: PRESENT: normocephalic Respiratory exam: PRESENT: unlabored Pulses: PRESENT: +1 pedal pulses bilateral GI/Abdominal exam: PRESENT: soft Rectal exam: PRESENT: deferred Extremities exam: PRESENT: other - Left lower extremity dressings of been reinforced. They're currently clean and dry. This considerable flies swelling. There is minimal pedal edema. Neurovascular to the left foot is without focal deficit. Results Laboratory Results: 08/08/16 06:03 Sodium 139.1 Potassium 3.8 Chloride 110 H Carbon Dioxide 24 Anion Gap 5 BUN 6 L Creatinine 0.75 Est GFR ( Amer) > 60 Est GFR (Non-Af Amer) > 60 Glucose 218 H Calcium 7.7 L Magnesium 2.0 08/07/16 06:15 Nasophary ([facility] Only) MRSA Surveillance Culture - Final NO MRSA RECOVERED Impressions: Abdomen/Pelvis CT 08/05/16 15:19 IMPRESSION: 1. No traumatic vascular, solid organ, hollow viscous organ, or bony injury identified within the chest, abdomen, or pelvis. 2. Partially visualized comminuted fracture of the proximal diaphysis of the left femur. Please see separate report from the lower extremity for full details regarding the finding. Cervical Spine CT 08/05/16 15:19 IMPRESSION: CHRONIC DEGENERATIVE CHANGES. NO ACUTE FINDINGS. Nodular density noted in the left lung apex likely representing scar versus underlying nodule. Chest CT 08/05/16 15:19 IMPRESSION: 1. No traumatic vascular, solid organ, hollow viscous organ, or bony injury identified within the chest, abdomen, or pelvis. 2. Partially visualized comminuted fracture of the proximal diaphysis of the left femur. Please see separate report from the lower extremity for full details regarding the finding. Chest X-Ray 08/05/16 15:19 IMPRESSION: No acute abnormality identified Head CT 08/05/16 15:19 IMPRESSION: No acute intracranial abnormality identified. Small posterior scalp hematoma. No skull fracture. Hip X-Ray 08/05/16 15:19 IMPRESSION: Comminuted fracture of the proximal diaphysis of the left femur with multiple small butterfly fragment seen throughout. The distal fragment appears to be proximally and medially displaced relation to more proximal fragment. No other fractures identified. Hand X-Ray 08/05/16 15:25 IMPRESSION: 1. Linear fracture through the base of the 1st metacarpal on the left. Obliquely oriented fracture through the lateral aspect of the distal 5th proximal phalanx. There is minimal displacement of the fracture fragments. 2. No acute fracture or dislocation identified in the right hand. Lower Extremity CT 08/05/16 15:26 IMPRESSION: Highly comminuted proximal left femoral diaphysis fracture at and just distal the level of the left lesser trochanter. There is angulation and foreshortening at the fracture site Femur X-Ray 08/06/16 00:00 IMPRESSION: Intra procedural imaging and fluoro Fluoroscopy 08/06/16 00:00 IMPRESSION: Intra procedural imaging and fluoro Assessment & Plan - Diagnosis (1) Diabetes Qualifiers: Diabetes mellitus type: type 2 Diabetes mellitus complication status: with neurologic complications Diabetes mellitus complication detail: with polyneuropathy Diabetes mellitus shelter insulin use: with shelter use Qualified Code(s): E11.42 - Type 2 diabetes mellitus with diabetic polyneuropathy; Z79.4 - [facility] (current) use of insulin Is this a current diagnosis for this admission?: YesPlan: Blood glucoses running between 99 and 263 (2) Fracture of proximal end of left femur Qualifiers: Encounter type: initial encounter Fracture type: closed Qualified Code(s): S72.002A - Fracture of unspecified part of neck of left femur, initial encounter for closed fracture Is this a current diagnosis for this admission?: YesPlan: Patient postop day 3. Open reduction internal fixation of left proximal femur fracture. Mobilization with physical therapy. An overhead trapeze will probably facilitate is in bed. Movement as well as transfers. (3) Acute blood loss as cause of postoperative anemia Is this a current diagnosis for this admission?: YesPlan: Hematocrit has decreased to 23.4% - Time Time Spent with patient: 15-24 minutes Anticipated discharge: Home with Homehealth Within: Other
[2016-08-09 06:59] LABS: ANION GAP 7 (5-19); BLOOD UREA NITROGEN 8 mg/dL (7-20); CALCIUM 8.1 mg/dL (8.4-10.2); CARBON DIOXIDE 24 mmol/L (22-30); CHLORIDE 106 mmol/L (98-107); CREATININE RESULT 0.82 mg/dL (0.52-1.25); GLUCOSE 162 mg/dL (75-110); MAGNESIUM 1.7 mg/dL (1.6-2.3); SODIUM 136.9 mmol/L (137-145)
[2016-08-09] MEDS ORDERED: MAGNESIUM CITRATE 296 ML BOTTLE PO ONE ×2 (07:00→09:00)
[2016-08-09 07:04] LABS: ABSOLUTE LYMPHOCYTES (AUTO) 1.5 10^3/uL (0.5-4.7); ABSOLUTE MONOCYTES (AUTO) 1.6 10^3/uL (0.1-1.4); ABSOLUTE NEUT (AUTO) 9.1 10^3/uL (1.7-8.2); BASOPHILS % (AUTO) 0.4 % (0-2); EOSINOPHILS % (AUTO) 0.4 % (0-6); HEMATOCRIT 22.8 % (37.9-51.0); HGB HCT DIFFERENCE 0.3; LYMPHOCYTES % (AUTO) 12.3 % (13-45); MEAN CORPUSCULAR HEMOGLOBIN 30.2 pg (27.0-33.4); MEAN CORPUSCULAR VOLUME 89 fl (80-97); RED BLOOD COUNT 2.57 10^6/uL (4.35-5.55); RED CELL DISTRIBUTION WIDTH 13.7 % (11.5-14.0); SEGMENTED NEUTROPHILS % (AUTO) 73.9 % (42-78); WHITE BLOOD COUNT 12.4 10^3/uL (4.0-10.5)
[2016-08-09 07:33] LABS: HEMOGLOBIN 7.7 g/dL (13.5-17.0)
[2016-08-09] MEDS ORDERED: FUROSEMIDE 20 MG TABLET PO PRN (07:52)
[2016-08-09] MEDS ORDERED: MINERAL OIL ENEMA 133 ML PR PRN (07:56)
[2016-08-09] MEDS: METFORMIN HCL 500 MG TABLET PO SCH ×2 (08:12→17:59)
[2016-08-09] MEDS: INSULIN LISPRO 100 UNIT/ML 3 ML VIAL SUBCUT PRN ×2 (08:13→23:29)
[2016-08-09] MEDS: HUM INSULIN NPH/REG INSULIN HM 100 UNIT/1 ML 3 ML SUBCUT SCH (08:13)
[2016-08-09] MEDS: DOCUSATE SODIUM 100 MG CAPSULE PO SCH ×2 (12:00→18:03)
[2016-08-09] MEDS: MAGNESIUM OXIDE 400 MG TABLET PO SCH ×3 (12:00→18:06)
[2016-08-09] MEDS: GABAPENTIN 300 MG CAPSULE PO SCH ×3 (12:00→18:03)
[2016-08-09] MEDS: INSULIN LISPRO 100 UNIT/ML 3 ML VIAL SUBCUT SCH ×3 (12:03→18:06)
[2016-08-09] MEDS ORDERED: NORMAL SALINE 250 ML IV PRN ×2 (12:48)
[2016-08-09] MEDS: OXYCODONE HCL IR 5 MG TABLET PO PRN (14:15)
--- NOTE | 2016-08-09 15:46 | PDOC PROGRESS REPORT ---
Subjective Progress Note for:: 08/09/16 Subjective:: Patient has not had a bowel movement since admission. He complains of abdominal pain. Patient denies chest pain, shortness of breath, nausea, vomiting , fevers, chills, diarrhea, headache, new onset weakness. Physical Exam Vital Signs: Temp Pulse Resp BP Pulse Ox 98.0 F 120 H 16 115/47 L 98 08/08/16 12:00 08/09/16 02:00 08/08/16 12:00 08/08/16 12:00 08/08/16 12:00 Intake & Output 08/08/16 08/09/16 08/10/16 06:59 06:59 06:59 Intake Total 1500 947 Output Total 400 1900 Balance 1100 -953 Exam: General: Awake, alert, oriented 3, no acute respiratory distress HEENT: AT/NC, PERRL, EOMI, oropharynx is moist, pink, no scleral icterus, no conjunctival injection Neck: No JVD, trachea midline Chest: Clear to auscultation bilaterally, no wheezes rhonchi or rales CV: Regular rate and rhythm, normal S1 and S2, no murmur, rub, or gallop Abdomen: Soft, mildly tender diffusely to palpation, mildly distended, active bowel sounds; no rebound, rigidity, or guarding Extremities: No cyanosis, clubbing; severe left leg edema--neurovascularly intact Neuro: Cranial nerves II through XII are grossly intact without focal deficits Psych: Normal mood and affect Results Laboratory Results: 08/09/16 06:12 08/09/16 06:12 08/09/16 08/09/16 06:12 06:12 WBC 12.4 H RBC 2.57 L Hgb 7.7 L Hct 22.8 L MCV 89 MCH 30.2 MCHC 34.0 RDW 13.7 Plt Count 149 L Seg Neutrophils % 73.9 Lymphocytes % 12.3 L Monocytes % 13.0 Eosinophils % 0.4 Basophils % 0.4 Absolute Neutrophils 9.1 H Absolute Lymphocytes 1.5 Absolute Monocytes 1.6 H Absolute Eosinophils 0.0 Absolute Basophils 0.0 Sodium 136.9 L Potassium 4.0 Chloride 106 Carbon Dioxide 24 Anion Gap 7 BUN 8 Creatinine 0.82 Est GFR ( Amer) > 60 Est GFR (Non-Af Amer) > 60 Glucose 162 H Calcium 8.1 L Magnesium 1.7 08/07/16 06:15 Nasophary ([facility] Only) MRSA Surveillance Culture - Final NO MRSA RECOVERED Impressions: Abdomen/Pelvis CT 08/05/16 15:19 IMPRESSION: 1. No traumatic vascular, solid organ, hollow viscous organ, or bony injury identified within the chest, abdomen, or pelvis. 2. Partially visualized comminuted fracture of the proximal diaphysis of the left femur. Please see separate report from the lower extremity for full details regarding the finding. Cervical Spine CT 08/05/16 15:19 IMPRESSION: CHRONIC DEGENERATIVE CHANGES. NO ACUTE FINDINGS. Nodular density noted in the left lung apex likely representing scar versus underlying nodule. Chest CT 08/05/16 15:19 IMPRESSION: 1. No traumatic vascular, solid organ, hollow viscous organ, or bony injury identified within the chest, abdomen, or pelvis. 2. Partially visualized comminuted fracture of the proximal diaphysis of the left femur. Please see separate report from the lower extremity for full details regarding the finding. Chest X-Ray 08/05/16 15:19 IMPRESSION: No acute abnormality identified Head CT 08/05/16 15:19 IMPRESSION: No acute intracranial abnormality identified. Small posterior scalp hematoma. No skull fracture. Hip X-Ray 08/05/16 15:19 IMPRESSION: Comminuted fracture of the proximal diaphysis of the left femur with multiple small butterfly fragment seen throughout. The distal fragment appears to be proximally and medially displaced relation to more proximal fragment. No other fractures identified. Hand X-Ray 08/05/16 15:25 IMPRESSION: 1. Linear fracture through the base of the 1st metacarpal on the left. Obliquely oriented fracture through the lateral aspect of the distal 5th proximal phalanx. There is minimal displacement of the fracture fragments. 2. No acute fracture or dislocation identified in the right hand. Lower Extremity CT 08/05/16 15:26 IMPRESSION: Highly comminuted proximal left femoral diaphysis fracture at and just distal the level of the left lesser trochanter. There is angulation and foreshortening at the fracture site Femur X-Ray 08/06/16 00:00 IMPRESSION: Intra procedural imaging and fluoro Fluoroscopy 08/06/16 00:00 IMPRESSION: Intra procedural imaging and fluoro Assessment & Plan - Diagnosis (1) Acute blood loss as cause of postoperative anemia Is this a current diagnosis for this admission?: YesPlan: Patient received 3 units of packed red blood cells on 08/07/2016. Patient's hemoglobin today is 7.7. Will give patient 2 units of packed red blood cells. He continues to be anemic secondary to long bone fracture. Currently holding anticoagulation. Will occult blood his stool. Have considered splenic or liver laceration in this differential, but defer to surgery primary for evaluation of patient's traumatic injuries. (2) Diabetic neuropathy Qualifiers: Diabetes mellitus type: type 1 Diabetes mellitus complication detail: diabetic polyneuropathy Qualified Code(s): E10.42 - Type 1 diabetes mellitus with diabetic polyneuropathy Is this a current diagnosis for this admission?: YesPlan: Continue Neurontin (3) Abrasions of multiple sites Is this a current diagnosis for this admission?: Yes (4) Diabetes Qualifiers: Diabetes mellitus type: type 2 Diabetes mellitus complication status: with neurologic complications Diabetes mellitus complication detail: with polyneuropathy Diabetes mellitus assistant terminal manager insulin use: with assistant terminal manager use Qualified Code(s): E11.42 - Type 2 diabetes mellitus with diabetic polyneuropathy; Z79.4 - [facility] (current) use of insulin Is this a current diagnosis for this admission?: YesPlan: On 70/30 and continue sliding scale. Increase patient's 70/30 13 units twice a day. On metformin. (5) Fracture of proximal end of left femur Qualifiers: Encounter type: initial encounter Fracture type: closed Qualified Code(s): S72.002A - Fracture of unspecified part of neck of left femur, initial encounter for closed fracture Is this a current diagnosis for this admission?: YesPlan: Defer to orthopedics. Postoperative day #3 (6) Hypomagnesemia Is this a current diagnosis for this admission?: Yes (7) Acute metabolic encephalopathy Is this a current diagnosis for this admission?: YesPlan: Resolved. Continue when necessary Narcan. Stop IV narcotics. Continue low- dose oxycodone. (8) Cocaine abuse Is this a current diagnosis for this admission?: YesPlan: Avoid beta blockers. When necessary Valium and Zyprexa - Time Time Spent with patient: 25-34 minutes Medications reviewed and adjusted accordingly: Yes
[2016-08-09] MEDS ORDERED: HUM INSULIN NPH/REG INSULIN HM 100 UNIT/1 ML 3 ML SUBCUT SCH (16:00)
[2016-08-09] MEDS: SENNOSIDES/DOCUSATE 8.6-50 MG 1 EACH TABLET PO SCH (23:30)
[2016-08-10 06:31] LABS: ABSOLUTE BASOPHILS # (AUTO) 0.1 10^3/uL (0.0-0.2); ABSOLUTE EOSINOPHILS # (AUTO) 0.1 10^3/uL (0.0-0.6); ABSOLUTE LYMPHOCYTES (AUTO) 1.3 10^3/uL (0.5-4.7); ABSOLUTE MONOCYTES (AUTO) 1.7 10^3/uL (0.1-1.4); ABSOLUTE NEUT (AUTO) 8.8 10^3/uL (1.7-8.2); BASOPHILS % (AUTO) 0.4 % (0-2); EOSINOPHILS % (AUTO) 0.8 % (0-6); HEMATOCRIT 31.5 % (37.9-51.0); HGB HCT DIFFERENCE 0.3; LYMPHOCYTES % (AUTO) 10.7 % (13-45); MEAN CORPUSCULAR HEMOGLOBIN 29.5 pg (27.0-33.4); MEAN CORPUSCULAR HGB CONC 33.7 g/dL (32.0-36.0); MEAN CORPUSCULAR VOLUME 88 fl (80-97); RED CELL DISTRIBUTION WIDTH 14.1 % (11.5-14.0); SEGMENTED NEUTROPHILS % (AUTO) 74.1 % (42-78); WHITE BLOOD COUNT 11.9 10^3/uL (4.0-10.5)
[2016-08-10] MEDS: OXYCODONE HCL IR 5 MG TABLET PO PRN ×3 (06:31→21:48)
[2016-08-10 06:49] LABS: ANION GAP 7 (5-19); BLOOD UREA NITROGEN 9 mg/dL (7-20); CALCIUM 8.3 mg/dL (8.4-10.2); CARBON DIOXIDE 28 mmol/L (22-30); CHLORIDE 101 mmol/L (98-107); CREATININE RESULT 0.79 mg/dL (0.52-1.25); GLUCOSE 191 mg/dL (75-110); SODIUM 136.3 mmol/L (137-145)
--- NOTE | 2016-08-10 06:49 | PDOC PROGRESS REPORT ---
Subjective Progress Note for:: 08/10/16 Subjective:: Patient complains of being unable to move the left leg Physical Exam Vital Signs: Temp Pulse Resp BP Pulse Ox 36.7 C 83 18 127/33 H 99 08/10/16 04:01 08/10/16 04:01 08/10/16 04:01 08/10/16 04:01 08/10/16 04:01 Intake & Output 08/08/16 08/09/16 08/10/16 06:59 06:59 06:59 Intake Total 0045 620 8177 Output Total 400 1900 2150 Balance 1100 -953 -950 General appearance: PRESENT: mild distress Head exam: PRESENT: normocephalic Eye exam: PRESENT: EOMI Respiratory exam: PRESENT: unlabored Cardiovascular exam: PRESENT: RRR Pulses: PRESENT: +1 pedal pulses bilateral Vascular exam: PRESENT: normal capillary refill GI/Abdominal exam: PRESENT: soft, other - Bowel movement yesterday Rectal exam: PRESENT: deferred Extremities exam: PRESENT: other - Left lower extremity dressing reinforced and dry. Swelling is decreasing. Distal neurovascular examinations intact. Results Laboratory Results: 08/09/16 08/09/16 08/09/16 06:12 06:12 15:00 WBC 12.4 H RBC 2.57 L Hgb 7.7 L Hct 22.8 L MCV 89 MCH 30.2 MCHC 34.0 RDW 13.7 Plt Count 149 L Seg Neutrophils % 73.9 Lymphocytes % 12.3 L Monocytes % 13.0 Eosinophils % 0.4 Basophils % 0.4 Absolute Neutrophils 9.1 H Absolute Lymphocytes 1.5 Absolute Monocytes 1.6 H Absolute Eosinophils 0.0 Absolute Basophils 0.0 Sodium 136.9 L Potassium 4.0 Chloride 106 Carbon Dioxide 24 Anion Gap 7 BUN 8 Creatinine 0.82 Est GFR ( Amer) > 60 Est GFR (Non-Af Amer) > 60 Glucose 162 H Calcium 8.1 L Magnesium 1.7 Stool Occult Blood Blood Type O POSITIVE Antibody Screen NEGATIVE 08/09/16 16:42 WBC RBC Hgb Hct MCV MCH MCHC RDW Plt Count Seg Neutrophils % Lymphocytes % Monocytes % Eosinophils % Basophils % Absolute Neutrophils Absolute Lymphocytes Absolute Monocytes Absolute Eosinophils Absolute Basophils Sodium Potassium Chloride Carbon Dioxide Anion Gap BUN Creatinine Est GFR ( Amer) Est GFR (Non-Af Amer) Glucose Calcium Magnesium Stool Occult Blood NEGATIVE Blood Type Antibody Screen Impressions: Abdomen/Pelvis CT 08/05/16 15:19 IMPRESSION: 1. No traumatic vascular, solid organ, hollow viscous organ, or bony injury identified within the chest, abdomen, or pelvis. 2. Partially visualized comminuted fracture of the proximal diaphysis of the left femur. Please see separate report from the lower extremity for full details regarding the finding. Cervical Spine CT 08/05/16 15:19 IMPRESSION: CHRONIC DEGENERATIVE CHANGES. NO ACUTE FINDINGS. Nodular density noted in the left lung apex likely representing scar versus underlying nodule. Chest CT 08/05/16 15:19 IMPRESSION: 1. No traumatic vascular, solid organ, hollow viscous organ, or bony injury identified within the chest, abdomen, or pelvis. 2. Partially visualized comminuted fracture of the proximal diaphysis of the left femur. Please see separate report from the lower extremity for full details regarding the finding. Chest X-Ray 08/05/16 15:19 IMPRESSION: No acute abnormality identified Head CT 08/05/16 15:19 IMPRESSION: No acute intracranial abnormality identified. Small posterior scalp hematoma. No skull fracture. Hip X-Ray 08/05/16 15:19 IMPRESSION: Comminuted fracture of the proximal diaphysis of the left femur with multiple small butterfly fragment seen throughout. The distal fragment appears to be proximally and medially displaced relation to more proximal fragment. No other fractures identified. Hand X-Ray 08/05/16 15:25 IMPRESSION: 1. Linear fracture through the base of the 1st metacarpal on the left. Obliquely oriented fracture through the lateral aspect of the distal 5th proximal phalanx. There is minimal displacement of the fracture fragments. 2. No acute fracture or dislocation identified in the right hand. Lower Extremity CT 08/05/16 15:26 IMPRESSION: Highly comminuted proximal left femoral diaphysis fracture at and just distal the level of the left lesser trochanter. There is angulation and foreshortening at the fracture site Femur X-Ray 08/06/16 00:00 IMPRESSION: Intra procedural imaging and fluoro Fluoroscopy 08/06/16 00:00 IMPRESSION: Intra procedural imaging and fluoro Status: Imported from PACS Assessment & Plan - Diagnosis (1) Diabetes Qualifiers: Diabetes mellitus type: type 2 Diabetes mellitus complication status: with neurologic complications Diabetes mellitus complication detail: with polyneuropathy Diabetes mellitus detention insulin use: with long goods drier use Qualified Code(s): E11.42 - Type 2 diabetes mellitus with diabetic polyneuropathy; Z79.4 - intermission coordinator (current) use of insulin Is this a current diagnosis for this admission?: YesPlan: Blood sugars running between 65 and 239 (2) Fracture of proximal end of left femur Qualifiers: Encounter type: initial encounter Fracture type: closed Qualified Code(s): S72.002A - Fracture of unspecified part of neck of left femur, initial encounter for closed fracture Is this a current diagnosis for this admission?: YesPlan: Wound seems to be healing uneventfully. Absence of motion in the left leg is presumably secondary to trauma, surgery, swelling. He is not been seen by physical therapy. In order has been rewritten for physical therapy for touchdown weightbearing on the left lower extremity. (3) Acute blood loss as cause of postoperative anemia Is this a current diagnosis for this admission?: YesPlan: Current hematocrit is 22.8% - Time Time Spent with patient: 15-24 minutes Anticipated discharge: Home with Homehealth Within: within 48 hours
[2016-08-10 07:08] LABS: HEMOGLOBIN 10.6 g/dL (13.5-17.0)
[2016-08-10] MEDS: MAGNESIUM OXIDE 400 MG TABLET PO SCH ×2 (10:24→18:53)
[2016-08-10] MEDS: INSULIN LISPRO 100 UNIT/ML 3 ML VIAL SUBCUT SCH ×3 (10:25→18:53)
[2016-08-10] MEDS: GABAPENTIN 300 MG CAPSULE PO SCH ×3 (10:25→18:53)
[2016-08-10] MEDS: DOCUSATE SODIUM 100 MG CAPSULE PO SCH ×2 (10:25→18:53)
[2016-08-10] MEDS: INSULIN LISPRO 100 UNIT/ML 3 ML VIAL SUBCUT PRN (10:31)
[2016-08-10] MEDS: METFORMIN HCL 500 MG TABLET PO SCH (10:33)
[2016-08-10] MEDS: HUM INSULIN NPH/REG INSULIN HM 100 UNIT/1 ML 3 ML SUBCUT SCH (16:15)
--- NOTE | 2016-08-10 16:26 | PDOC PROGRESS REPORT ---
Subjective Progress Note for:: 08/10/16 Subjective:: Patient's pain is controlled. He is beginning to ambulate with the assistance of physical therapy and rolling walker. He currently does not have insurance and therefore will not be able to go to acute rehabilitation at this point. Patient denies fever, chills, headache, new focal weakness, chest pain, shortness of breath, abdominal pain, nausea, vomiting, diarrhea, constipation. Physical Exam Vital Signs: Temp Pulse Resp BP Pulse Ox 98.7 F 99 13 120/79 100 08/10/16 12:00 08/10/16 12:00 08/10/16 12:00 08/10/16 12:00 08/10/16 12:00 Intake & Output 08/09/16 08/10/16 08/11/16 06:59 06:59 06:59 Intake Total 947 1200 Output Total 1900 2150 200 Balance -953 -950 -200 GENERAL: No acute distress HEENT: Conjunctiva clear, nonicteric, moist mucous membranes, no JVD, midline trachea RESPIRATORY: Clear to auscultation bilaterally, no wheezes, no rhonchi CARDIAC: Regular rate and rhythm, no murmurs/gallops/rubs ABDOMEN: Soft, nondistended, nontender, positive bowel sounds, no rebound, no guarding EXTREMETIES: No edema, cyanosis, clubbing NEUROLOGIC: Alert, oriented to person/place/time, CN's grossly intact, no focal deficits SKIN: No rash, wounds PSYCH: Normal mood, normal affect Results Laboratory Results: 08/10/16 06:06 08/10/16 06:06 08/09/16 08/09/16 08/10/16 15:00 16:42 06:06 WBC 11.9 H RBC 3.60 L Hgb 10.6 L D Hct 31.5 L MCV 88 MCH 29.5 MCHC 33.7 RDW 14.1 H Plt Count 229 Seg Neutrophils % 74.1 Lymphocytes % 10.7 L Monocytes % 14.0 H Eosinophils % 0.8 Basophils % 0.4 Absolute Neutrophils 8.8 H Absolute Lymphocytes 1.3 Absolute Monocytes 1.7 H Absolute Eosinophils 0.1 Absolute Basophils 0.1 Sodium Potassium Chloride Carbon Dioxide Anion Gap BUN Creatinine Est GFR ( Amer) Est GFR (Non-Af Amer) Glucose Calcium Stool Occult Blood NEGATIVE Blood Type O POSITIVE Antibody Screen NEGATIVE 08/10/16 06:06 WBC RBC Hgb Hct MCV MCH MCHC RDW Plt Count Seg Neutrophils % Lymphocytes % Monocytes % Eosinophils % Basophils % Absolute Neutrophils Absolute Lymphocytes Absolute Monocytes Absolute Eosinophils Absolute Basophils Sodium 136.3 L Potassium 4.0 Chloride 101 Carbon Dioxide 28 Anion Gap 7 BUN 9 Creatinine 0.79 Est GFR ( Amer) > 60 Est GFR (Non-Af Amer) > 60 Glucose 191 H Calcium 8.3 L Stool Occult Blood Blood Type Antibody Screen Impressions: Abdomen/Pelvis CT 08/05/16 15:19 IMPRESSION: 1. No traumatic vascular, solid organ, hollow viscous organ, or bony injury identified within the chest, abdomen, or pelvis. 2. Partially visualized comminuted fracture of the proximal diaphysis of the left femur. Please see separate report from the lower extremity for full details regarding the finding. Cervical Spine CT 08/05/16 15:19 IMPRESSION: CHRONIC DEGENERATIVE CHANGES. NO ACUTE FINDINGS. Nodular density noted in the left lung apex likely representing scar versus underlying nodule. Chest CT 08/05/16 15:19 IMPRESSION: 1. No traumatic vascular, solid organ, hollow viscous organ, or bony injury identified within the chest, abdomen, or pelvis. 2. Partially visualized comminuted fracture of the proximal diaphysis of the left femur. Please see separate report from the lower extremity for full details regarding the finding. Chest X-Ray 08/05/16 15:19 IMPRESSION: No acute abnormality identified Head CT 08/05/16 15:19 IMPRESSION: No acute intracranial abnormality identified. Small posterior scalp hematoma. No skull fracture. Hip X-Ray 08/05/16 15:19 IMPRESSION: Comminuted fracture of the proximal diaphysis of the left femur with multiple small butterfly fragment seen throughout. The distal fragment appears to be proximally and medially displaced relation to more proximal fragment. No other fractures identified. Hand X-Ray 08/05/16 15:25 IMPRESSION: 1. Linear fracture through the base of the 1st metacarpal on the left. Obliquely oriented fracture through the lateral aspect of the distal 5th proximal phalanx. There is minimal displacement of the fracture fragments. 2. No acute fracture or dislocation identified in the right hand. Lower Extremity CT 08/05/16 15:26 IMPRESSION: Highly comminuted proximal left femoral diaphysis fracture at and just distal the level of the left lesser trochanter. There is angulation and foreshortening at the fracture site Femur X-Ray 08/06/16 00:00 IMPRESSION: Intra procedural imaging and fluoro Fluoroscopy 08/06/16 00:00 IMPRESSION: Intra procedural imaging and fluoro Assessment & Plan - Diagnosis (1) Fracture of proximal end of left femur Qualifiers: Encounter type: initial encounter Fracture type: closed Qualified Code(s): S72.002A - Fracture of unspecified part of neck of left femur, initial encounter for closed fracture Is this a current diagnosis for this admission?: YesPlan: Continue physical therapy as inpatient for now. Patient has no insurance and therefore probably cannot go to acute rehabilitation. He resides with his mother at baseline. (2) Acute blood loss as cause of postoperative anemia Is this a current diagnosis for this admission?: YesPlan: Patient has been transfuse a total of 5 units PRBC over course of admission secondary to acute blood loss anemia associated with long bone fracture. Pharmacologic DVT prophylaxis is on hold until H&H stabilizes. (3) Abrasions of multiple sites Is this a current diagnosis for this admission?: Yes (4) Acute metabolic encephalopathy Is this a current diagnosis for this admission?: YesPlan: Resolved. (5) Cocaine abuse Is this a current diagnosis for this admission?: Yes (6) Diabetes Qualifiers: Diabetes mellitus type: type 2 Diabetes mellitus complication status: with neurologic complications Diabetes mellitus complication detail: with polyneuropathy Diabetes mellitus snf insulin use: with snf use Qualified Code(s): E11.42 - Type 2 diabetes mellitus with diabetic polyneuropathy; Z79.4 - intermediate teacher (current) use of insulin Is this a current diagnosis for this admission?: YesPlan: Continue Lantus. Continue scheduled Humalog. Continue sliding scale insulin. (7) Diabetic neuropathy Qualifiers: Diabetes mellitus type: type 1 Diabetes mellitus complication detail: diabetic polyneuropathy Qualified Code(s): E10.42 - Type 1 diabetes mellitus with diabetic polyneuropathy Is this a current diagnosis for this admission?: YesPlan: Continue Neurontin. - Time Time Spent with patient: 35 or more minutes Anticipated discharge: Home
[2016-08-10] MEDS: SENNOSIDES/DOCUSATE 8.6-50 MG 1 EACH TABLET PO SCH (21:47)
[2016-08-11] MEDS: OXYCODONE HCL IR 5 MG TABLET PO PRN ×3 (05:56→18:38)
[2016-08-11 07:17] LABS: ABSOLUTE BASOPHILS # (AUTO) 0.1 10^3/uL (0.0-0.2); ABSOLUTE EOSINOPHILS # (AUTO) 0.1 10^3/uL (0.0-0.6); ABSOLUTE LYMPHOCYTES (AUTO) 1.6 10^3/uL (0.5-4.7); ABSOLUTE MONOCYTES (AUTO) 2.2 10^3/uL (0.1-1.4); ABSOLUTE NEUT (AUTO) 8.3 10^3/uL (1.7-8.2); BASOPHILS % (AUTO) 0.4 % (0-2); HEMATOCRIT 35.8 % (37.9-51.0); HEMOGLOBIN 11.4 g/dL (13.5-17.0); HGB HCT DIFFERENCE -1.6; LYMPHOCYTES % (AUTO) 12.9 % (13-45); MEAN CORPUSCULAR HEMOGLOBIN 28.9 pg (27.0-33.4); MEAN CORPUSCULAR HGB CONC 31.8 g/dL (32.0-36.0); MEAN CORPUSCULAR VOLUME 91 fl (80-97); MONOCYTES % (AUTO) 17.8 % (3-13); RED BLOOD COUNT 3.95 10^6/uL (4.35-5.55); SEGMENTED NEUTROPHILS % (AUTO) 67.9 % (42-78); WHITE BLOOD COUNT 12.3 10^3/uL (4.0-10.5)
[2016-08-11 07:34] LABS: ANION GAP 9 (5-19); BLOOD UREA NITROGEN 11 mg/dL (7-20); CALCIUM 8.8 mg/dL (8.4-10.2); CARBON DIOXIDE 27 mmol/L (22-30); CHLORIDE 99 mmol/L (98-107); GLUCOSE 231 mg/dL (75-110); POTASSIUM 4.3 mmol/L (3.6-5.0); SODIUM 135.1 mmol/L (137-145)
[2016-08-11] MEDS: HUM INSULIN NPH/REG INSULIN HM 100 UNIT/1 ML 3 ML SUBCUT SCH ×2 (08:56→17:55)
[2016-08-11] MEDS: INSULIN LISPRO 100 UNIT/ML 3 ML VIAL SUBCUT PRN ×3 (08:56→21:24)
[2016-08-11] MEDS: DOCUSATE SODIUM 100 MG CAPSULE PO SCH ×2 (10:14→18:37)
[2016-08-11] MEDS: MAGNESIUM OXIDE 400 MG TABLET PO SCH ×2 (10:14→18:37)
[2016-08-11] MEDS: GABAPENTIN 300 MG CAPSULE PO SCH ×3 (10:15→18:38)
[2016-08-11] MEDS: INSULIN GLARGINE,HUM.REC.ANLOG 300 UNIT/3 ML INSULN.PEN SUBCUT SCH (10:16)
[2016-08-11] MEDS: INSULIN LISPRO 100 UNIT/ML 3 ML VIAL SUBCUT SCH ×2 (10:17→17:55)
[2016-08-11 11:16] LABS: HEMATOCRIT 34.6 % (37.9-51.0); HEMOGLOBIN 11.6 g/dL (13.5-17.0); HGB HCT DIFFERENCE 0.2; MEAN CORPUSCULAR HEMOGLOBIN 29.8 pg (27.0-33.4); MEAN CORPUSCULAR HGB CONC 33.6 g/dL (32.0-36.0); MEAN CORPUSCULAR VOLUME 89 fl (80-97); RED BLOOD COUNT 3.91 10^6/uL (4.35-5.55); RED CELL DISTRIBUTION WIDTH 13.6 % (11.5-14.0); WHITE BLOOD COUNT 10.6 10^3/uL (4.0-10.5)
[2016-08-11 11:22] LABS: PROTHROMBIN TIME 12.8 SEC (11.4-15.4)
[2016-08-11 11:23] LABS: PARTIAL THROMBOPLASTIN TIME 40.9 SEC (23.5-35.8)
--- NOTE | 2016-08-11 12:13 | XCELERA REPORT ---
[address] [address] Lower Extremity Venous Evaluation Name: KAM PURDY Age: 55 yrs Gender: Male : 1960 Patient Status: Inpatient Patient Location: [facility][id number]\S\A Study Date: 08/11/2016 11:27 AM Procedure: Color flow and duplex imaging of the veins of the left lower extremity as well as the right Common Femoral vein. Reason For Study: left leg pain/swelling Ordering Physician: JOHN LOERA Performed By: Mariposa Pelletier Right Sided Venous Evaluation The right common femoral vein is fully compressible. Spontaneous and phasic flow is present in the right common femoral vein. Left Sided Venous Evaluation Normal vessel filling wall to wall, compression and augmentation as well as Colour flow down to the infrageniculate veins. Interpretation Summary No duplex evidence of DVT or obstruction in the left lower extremity nor in the right Common Femoral vein. : JOHN LOERA [place]
[2016-08-11 12:17] LABS: CREATININE RESULT 0.79 mg/dL (0.52-1.25)
[2016-08-11] MEDS: CEFAZOLIN 1 GM/D5W RTU 50 ML IV SCH ×3 (14:11→23:55)
--- NOTE | 2016-08-11 14:18 | PDOC PROGRESS REPORT ---
Subjective Progress Note for:: 08/11/16 Subjective:: Patient complains of increasing pain and swelling in his left leg. He has also been noted to have low-grade temperatures overnight. Patient denies chills, headache, new focal weakness, chest pain, shortness of breath, abdominal pain, nausea, vomiting, diarrhea, constipation. Physical Exam Vital Signs: Temp Pulse Resp BP Pulse Ox 99.8 F 98 16 129/75 H 98 08/11/16 00:16 08/11/16 00:16 08/11/16 00:16 08/11/16 00:16 08/11/16 00:16 Intake & Output 08/10/16 08/11/16 08/12/16 06:59 06:59 06:59 Intake Total 1200 1613 Output Total 2150 1950 Balance -950 -337 GENERAL: No acute distress HEENT: Conjunctiva clear, nonicteric, moist mucous membranes, no JVD, midline trachea RESPIRATORY: Clear to auscultation bilaterally, no wheezes, no rhonchi CARDIAC: Regular rate and rhythm, no murmurs/gallops/rubs ABDOMEN: Soft, nondistended, nontender, positive bowel sounds, no rebound, no guarding EXTREMETIES: Left lower extremity edema, erythema, tenderness NEUROLOGIC: Alert, oriented to person/place/time, CN's grossly intact, no focal deficits SKIN: Left hip incision intact with no drainage PSYCH: Normal mood, normal affect Results Laboratory Results: 08/11/16 11:08 08/11/16 11:08 08/11/16 08/11/16 08/11/16 06:49 06:49 11:08 WBC 12.3 H 10.6 H RBC 3.95 L 3.91 L Hgb 11.4 L 11.6 L Hct 35.8 L 34.6 L MCV 91 89 MCH 28.9 29.8 MCHC 31.8 L 33.6 RDW 14.0 13.6 Plt Count 294 312 Seg Neutrophils % 67.9 Lymphocytes % 12.9 L Monocytes % 17.8 H Eosinophils % 1.0 Basophils % 0.4 Absolute Neutrophils 8.3 H Absolute Lymphocytes 1.6 Absolute Monocytes 2.2 H Absolute Eosinophils 0.1 Absolute Basophils 0.1 Sodium 135.1 L Potassium 4.3 Chloride 99 Carbon Dioxide 27 Anion Gap 9 BUN 11 Creatinine 0.80 Est GFR ( Amer) > 60 Est GFR (Non-Af Amer) > 60 Glucose 231 H Calcium 8.8 08/11/16 11:08 WBC RBC Hgb Hct MCV MCH MCHC RDW Plt Count Seg Neutrophils % Lymphocytes % Monocytes % Eosinophils % Basophils % Absolute Neutrophils Absolute Lymphocytes Absolute Monocytes Absolute Eosinophils Absolute Basophils Sodium Potassium Chloride Carbon Dioxide Anion Gap BUN Creatinine 0.79 Est GFR ( Amer) > 60 Est GFR (Non-Af Amer) > 60 Glucose Calcium Impressions: Abdomen/Pelvis CT 08/05/16 15:19 IMPRESSION: 1. No traumatic vascular, solid organ, hollow viscous organ, or bony injury identified within the chest, abdomen, or pelvis. 2. Partially visualized comminuted fracture of the proximal diaphysis of the left femur. Please see separate report from the lower extremity for full details regarding the finding. Cervical Spine CT 08/05/16 15:19 IMPRESSION: CHRONIC DEGENERATIVE CHANGES. NO ACUTE FINDINGS. Nodular density noted in the left lung apex likely representing scar versus underlying nodule. Chest CT 08/05/16 15:19 IMPRESSION: 1. No traumatic vascular, solid organ, hollow viscous organ, or bony injury identified within the chest, abdomen, or pelvis. 2. Partially visualized comminuted fracture of the proximal diaphysis of the left femur. Please see separate report from the lower extremity for full details regarding the finding. Head CT 08/05/16 15:19 IMPRESSION: No acute intracranial abnormality identified. Small posterior scalp hematoma. No skull fracture. Hip X-Ray 08/05/16 15:19 IMPRESSION: Comminuted fracture of the proximal diaphysis of the left femur with multiple small butterfly fragment seen throughout. The distal fragment appears to be proximally and medially displaced relation to more proximal fragment. No other fractures identified. Hand X-Ray 08/05/16 15:25 IMPRESSION: 1. Linear fracture through the base of the 1st metacarpal on the left. Obliquely oriented fracture through the lateral aspect of the distal 5th proximal phalanx. There is minimal displacement of the fracture fragments. 2. No acute fracture or dislocation identified in the right hand. Lower Extremity CT 08/05/16 15:26 IMPRESSION: Highly comminuted proximal left femoral diaphysis fracture at and just distal the level of the left lesser trochanter. There is angulation and foreshortening at the fracture site Femur X-Ray 08/06/16 00:00 IMPRESSION: Intra procedural imaging and fluoro Fluoroscopy 08/06/16 00:00 IMPRESSION: Intra procedural imaging and fluoro Chest X-Ray 08/11/16 10:43 IMPRESSION: NO SIGNIFICANT RADIOGRAPHIC FINDING IN THE CHEST. Assessment & Plan - Diagnosis (1) Systemic inflammatory response syndrome (SIRS) Is this a current diagnosis for this admission?: YesPlan: Secondary to left leg cellulitis. (2) Left leg cellulitis Is this a current diagnosis for this admission?: YesPlan: Patient will be started on IV Ancef. (3) Fracture of proximal end of left femur Qualifiers: Encounter type: initial encounter Fracture type: closed Qualified Code(s): S72.002A - Fracture of unspecified part of neck of left femur, initial encounter for closed fracture Is this a current diagnosis for this admission?: YesPlan: Continue physical therapy as inpatient for now. Patient has no insurance and therefore probably cannot go to acute rehabilitation. He resides with his mother at baseline. (4) Acute blood loss as cause of postoperative anemia Is this a current diagnosis for this admission?: YesPlan: Patient has been transfuse a total of 5 units PRBC over course of admission secondary to acute blood loss anemia associated with long bone fracture. Monitor H&H closely with reinitiation of DVT prophylaxis. (5) Abrasions of multiple sites Is this a current diagnosis for this admission?: Yes (6) Acute metabolic encephalopathy Is this a current diagnosis for this admission?: YesPlan: Resolved. (7) Cocaine abuse Is this a current diagnosis for this admission?: Yes (8) Diabetes Qualifiers: Diabetes mellitus type: type 2 Diabetes mellitus complication status: with neurologic complications Diabetes mellitus complication detail: with polyneuropathy Diabetes mellitus care home insulin use: with ferry terminal agent use Qualified Code(s): E11.42 - Type 2 diabetes mellitus with diabetic polyneuropathy; Z79.4 - terminal carman (current) use of insulin Is this a current diagnosis for this admission?: YesPlan: Continue Lantus. Continue scheduled Humalog. Continue sliding scale insulin. (9) Diabetic neuropathy Qualifiers: Diabetes mellitus type: type 1 Diabetes mellitus complication detail: diabetic polyneuropathy Qualified Code(s): E10.42 - Type 1 diabetes mellitus with diabetic polyneuropathy Is this a current diagnosis for this admission?: YesPlan: Continue Neurontin. - Time Time Spent with patient: 35 or more minutes Anticipated discharge: Home
[2016-08-11 16:42] LABS: APPEARANCE,URINE CLEAR; BILIRUBIN,URINE NEGATIVE (NEGATIVE); GLUCOSE, URINE 50 mg/dL (NEGATIVE); KETONES,URINE NEGATIVE (NEGATIVE); LEUKOCYTE ESTERASE,URINE NEGATIVE (NEGATIVE); NITRITE,URINE NEGATIVE (NEGATIVE); PROTEIN,URINE 30 mg/dL (NEGATIVE); URINE SPECIFIC GRAVITY 1.014; UROBILINOGEN,URINE NEGATIVE mg/dL (<2.0)
[2016-08-11] MEDS: SENNOSIDES/DOCUSATE 8.6-50 MG 1 EACH TABLET PO SCH (21:26)
[2016-08-12] MEDS: CEFAZOLIN 1 GM/D5W RTU 50 ML IV SCH ×3 (05:15→17:58)
[2016-08-12] MEDS: OXYCODONE HCL IR 5 MG TABLET PO PRN ×5 (05:15→22:29)
[2016-08-12 05:42] LABS: ABSOLUTE BASOPHILS # (AUTO) 0.1 10^3/uL (0.0-0.2); ABSOLUTE EOSINOPHILS # (AUTO) 0.2 10^3/uL (0.0-0.6); ABSOLUTE LYMPHOCYTES (AUTO) 1.5 10^3/uL (0.5-4.7); ABSOLUTE MONOCYTES (AUTO) 2.1 10^3/uL (0.1-1.4); ABSOLUTE NEUT (AUTO) 8.1 10^3/uL (1.7-8.2); BASOPHILS % (AUTO) 0.5 % (0-2); EOSINOPHILS % (AUTO) 1.4 % (0-6); HEMATOCRIT 35.7 % (37.9-51.0); HEMOGLOBIN 11.6 g/dL (13.5-17.0); HGB HCT DIFFERENCE -0.9; LYMPHOCYTES % (AUTO) 12.5 % (13-45); MEAN CORPUSCULAR HEMOGLOBIN 28.9 pg (27.0-33.4); MEAN CORPUSCULAR HGB CONC 32.5 g/dL (32.0-36.0); MEAN CORPUSCULAR VOLUME 89 fl (80-97); MONOCYTES % (AUTO) 17.5 % (3-13); RED BLOOD COUNT 4.01 10^6/uL (4.35-5.55); RED CELL DISTRIBUTION WIDTH 13.8 % (11.5-14.0); SEGMENTED NEUTROPHILS % (AUTO) 68.1 % (42-78); WHITE BLOOD COUNT 11.9 10^3/uL (4.0-10.5)
[2016-08-12 06:02] LABS: ANION GAP 10 (5-19); BLOOD UREA NITROGEN 15 mg/dL (7-20); CALCIUM 9.1 mg/dL (8.4-10.2); CARBON DIOXIDE 29 mmol/L (22-30); CHLORIDE 99 mmol/L (98-107); GLUCOSE 162 mg/dL (75-110); POTASSIUM 4.3 mmol/L (3.6-5.0); SODIUM 137.9 mmol/L (137-145)
--- NOTE | 2016-08-12 06:57 | PDOC PROGRESS REPORT ---
Subjective Progress Note for:: 08/12/16 Subjective:: Patient with complaints of left lower extremity pain Physical Exam Vital Signs: Temp Pulse Resp BP Pulse Ox 37.3 C 92 15 109/66 100 08/12/16 06:47 08/12/16 06:47 08/12/16 06:47 08/12/16 06:47 08/12/16 06:47 Intake & Output 08/10/16 08/11/16 08/12/16 06:59 06:59 06:59 Intake Total 1200 1613 1438 Output Total 2150 1950 1790 Balance -950 -337 -352 General appearance: PRESENT: mild distress Head exam: PRESENT: normocephalic Eye exam: PRESENT: EOMI Respiratory exam: PRESENT: unlabored Pulses: PRESENT: +1 pedal pulses bilateral Vascular exam: PRESENT: normal capillary refill GI/Abdominal exam: PRESENT: soft Rectal exam: PRESENT: deferred Extremities exam: PRESENT: other - Left lower extremity dressings clean dry and intact. Thigh swelling is decreasing. No evidence of cellulitis. To my clinical exam Results Laboratory Results: 08/12/16 05:23 08/12/16 05:23 08/11/16 08/11/16 08/11/16 06:49 06:49 11:08 WBC 12.3 H 10.6 H RBC 3.95 L 3.91 L Hgb 11.4 L 11.6 L Hct 35.8 L 34.6 L MCV 91 89 MCH 28.9 29.8 MCHC 31.8 L 33.6 RDW 14.0 13.6 Plt Count 294 312 Seg Neutrophils % 67.9 Lymphocytes % 12.9 L Monocytes % 17.8 H Eosinophils % 1.0 Basophils % 0.4 Absolute Neutrophils 8.3 H Absolute Lymphocytes 1.6 Absolute Monocytes 2.2 H Absolute Eosinophils 0.1 Absolute Basophils 0.1 Sodium 135.1 L Potassium 4.3 Chloride 99 Carbon Dioxide 27 Anion Gap 9 BUN 11 Creatinine 0.80 Est GFR ( Amer) > 60 Est GFR (Non-Af Amer) > 60 Glucose 231 H Calcium 8.8 Urine Color Urine Appearance Urine pH Ur Specific [place] Urine Protein Urine Glucose (UA) Urine Ketones Urine Blood Urine Nitrite Ur Leukocyte Esterase Urine WBC (Auto) Urine RBC (Auto) 08/11/16 08/11/16 08/12/16 11:08 16:11 05:23 WBC 11.9 H RBC 4.01 L Hgb 11.6 L Hct 35.7 L MCV 89 MCH 28.9 MCHC 32.5 RDW 13.8 Plt Count 368 Seg Neutrophils % 68.1 Lymphocytes % 12.5 L Monocytes % 17.5 H Eosinophils % 1.4 Basophils % 0.5 Absolute Neutrophils 8.1 Absolute Lymphocytes 1.5 Absolute Monocytes 2.1 H Absolute Eosinophils 0.2 Absolute Basophils 0.1 Sodium Potassium Chloride Carbon Dioxide Anion Gap BUN Creatinine 0.79 Est GFR ( Amer) > 60 Est GFR (Non-Af Amer) > 60 Glucose Calcium Urine Color YELLOW Urine Appearance CLEAR Urine pH 9.0 Ur Specific [place] 1.014 Urine Protein 30 H Urine Glucose (UA) 50 H Urine Ketones NEGATIVE Urine Blood NEGATIVE Urine Nitrite NEGATIVE Ur Leukocyte Esterase NEGATIVE Urine WBC (Auto) 0 Urine RBC (Auto) 0 08/12/16 05:23 WBC RBC Hgb Hct MCV MCH MCHC RDW Plt Count Seg Neutrophils % Lymphocytes % Monocytes % Eosinophils % Basophils % Absolute Neutrophils Absolute Lymphocytes Absolute Monocytes Absolute Eosinophils Absolute Basophils Sodium 137.9 Potassium 4.3 Chloride 99 Carbon Dioxide 29 Anion Gap 10 BUN 15 Creatinine 0.80 Est GFR ( Amer) > 60 Est GFR (Non-Af Amer) > 60 Glucose 162 H Calcium 9.1 Urine Color Urine Appearance Urine pH Ur Specific [place] Urine Protein Urine Glucose (UA) Urine Ketones Urine Blood Urine Nitrite Ur Leukocyte Esterase Urine WBC (Auto) Urine RBC (Auto) Impressions: Abdomen/Pelvis CT 08/05/16 15:19 IMPRESSION: 1. No traumatic vascular, solid organ, hollow viscous organ, or bony injury identified within the chest, abdomen, or pelvis. 2. Partially visualized comminuted fracture of the proximal diaphysis of the left femur. Please see separate report from the lower extremity for full details regarding the finding. Cervical Spine CT 08/05/16 15:19 IMPRESSION: CHRONIC DEGENERATIVE CHANGES. NO ACUTE FINDINGS. Nodular density noted in the left lung apex likely representing scar versus underlying nodule. Chest CT 08/05/16 15:19 IMPRESSION: 1. No traumatic vascular, solid organ, hollow viscous organ, or bony injury identified within the chest, abdomen, or pelvis. 2. Partially visualized comminuted fracture of the proximal diaphysis of the left femur. Please see separate report from the lower extremity for full details regarding the finding. Head CT 08/05/16 15:19 IMPRESSION: No acute intracranial abnormality identified. Small posterior scalp hematoma. No skull fracture. Hip X-Ray 08/05/16 15:19 IMPRESSION: Comminuted fracture of the proximal diaphysis of the left femur with multiple small butterfly fragment seen throughout. The distal fragment appears to be proximally and medially displaced relation to more proximal fragment. No other fractures identified. Hand X-Ray 08/05/16 15:25 IMPRESSION: 1. Linear fracture through the base of the 1st metacarpal on the left. Obliquely oriented fracture through the lateral aspect of the distal 5th proximal phalanx. There is minimal displacement of the fracture fragments. 2. No acute fracture or dislocation identified in the right hand. Lower Extremity CT 08/05/16 15:26 IMPRESSION: Highly comminuted proximal left femoral diaphysis fracture at and just distal the level of the left lesser trochanter. There is angulation and foreshortening at the fracture site Femur X-Ray 08/06/16 00:00 IMPRESSION: Intra procedural imaging and fluoro Fluoroscopy 08/06/16 00:00 IMPRESSION: Intra procedural imaging and fluoro Chest X-Ray 08/11/16 10:43 IMPRESSION: NO SIGNIFICANT RADIOGRAPHIC FINDING IN THE CHEST. 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 He ambulate 25 feet with physical therapy yesterday. (3) Acute blood loss as cause of postoperative anemia Is this a current diagnosis for this admission?: YesPlan: Hematocrit is stable at 34.5% - Time Time Spent with patient: 15-24 minutes Anticipated discharge: Home with Homehealth Within: within 48 hours
[2016-08-12] MEDS: ENOXAPARIN SODIUM INJ 40 MG/0.4 ML DISP.SYRIN SUBCUT SCH (08:14)
[2016-08-12] MEDS: HUM INSULIN NPH/REG INSULIN HM 100 UNIT/1 ML 3 ML SUBCUT SCH ×2 (08:14→17:15)
[2016-08-12] MEDS: INSULIN LISPRO 100 UNIT/ML 3 ML VIAL SUBCUT SCH ×3 (08:22→17:15)
[2016-08-12] MEDS: DOCUSATE SODIUM 100 MG CAPSULE PO SCH ×2 (12:12→17:59)
[2016-08-12] MEDS: MAGNESIUM OXIDE 400 MG TABLET PO SCH ×2 (12:13→17:59)
[2016-08-12] MEDS: GABAPENTIN 300 MG CAPSULE PO SCH ×3 (12:13→17:59)
[2016-08-12] MEDS: INSULIN GLARGINE,HUM.REC.ANLOG 300 UNIT/3 ML INSULN.PEN SUBCUT SCH (12:15)
[2016-08-12] MEDS: INSULIN LISPRO 100 UNIT/ML 3 ML VIAL SUBCUT PRN ×2 (12:16→22:29)
--- NOTE | 2016-08-12 18:03 | PDOC PROGRESS REPORT ---
Subjective Progress Note for:: 08/12/16 Subjective:: Left leg pain and swelling is much improved from yesterday. Patient denies fever , chills, headache, new focal weakness, chest pain, shortness of breath, abdominal pain, nausea, vomiting, diarrhea, constipation. Physical Exam Vital Signs: Temp Pulse Resp BP Pulse Ox 98.1 F 104 H 16 103/56 L 98 08/12/16 15:03 08/12/16 15:03 08/12/16 15:03 08/12/16 15:03 08/12/16 15:03 Intake & Output 08/11/16 08/12/16 08/13/16 06:59 06:59 06:59 Intake Total 1613 1438 Output Total 1950 1790 Balance -337 -352 GENERAL: No acute distress HEENT: Conjunctiva clear, nonicteric, moist mucous membranes, no JVD, midline trachea RESPIRATORY: Clear to auscultation bilaterally, no wheezes, no rhonchi CARDIAC: Regular rate and rhythm, no murmurs/gallops/rubs ABDOMEN: Soft, nondistended, nontender, positive bowel sounds, no rebound, no guarding EXTREMETIES: Left lower extremity edema, erythema, tenderness NEUROLOGIC: Alert, oriented to person/place/time, CN's grossly intact, no focal deficits SKIN: Left hip incision intact with no drainage PSYCH: Normal mood, normal affect Results Laboratory Results: 08/12/16 05:23 08/12/16 05:23 08/12/16 08/12/16 05:23 05:23 WBC 11.9 H RBC 4.01 L Hgb 11.6 L Hct 35.7 L MCV 89 MCH 28.9 MCHC 32.5 RDW 13.8 Plt Count 368 Seg Neutrophils % 68.1 Lymphocytes % 12.5 L Monocytes % 17.5 H Eosinophils % 1.4 Basophils % 0.5 Absolute Neutrophils 8.1 Absolute Lymphocytes 1.5 Absolute Monocytes 2.1 H Absolute Eosinophils 0.2 Absolute Basophils 0.1 Sodium 137.9 Potassium 4.3 Chloride 99 Carbon Dioxide 29 Anion Gap 10 BUN 15 Creatinine 0.80 Est GFR ( Amer) > 60 Est GFR (Non-Af Amer) > 60 Glucose 162 H Calcium 9.1 Impressions: Abdomen/Pelvis CT 08/05/16 15:19 IMPRESSION: 1. No traumatic vascular, solid organ, hollow viscous organ, or bony injury identified within the chest, abdomen, or pelvis. 2. Partially visualized comminuted fracture of the proximal diaphysis of the left femur. Please see separate report from the lower extremity for full details regarding the finding. Cervical Spine CT 08/05/16 15:19 IMPRESSION: CHRONIC DEGENERATIVE CHANGES. NO ACUTE FINDINGS. Nodular density noted in the left lung apex likely representing scar versus underlying nodule. Chest CT 08/05/16 15:19 IMPRESSION: 1. No traumatic vascular, solid organ, hollow viscous organ, or bony injury identified within the chest, abdomen, or pelvis. 2. Partially visualized comminuted fracture of the proximal diaphysis of the left femur. Please see separate report from the lower extremity for full details regarding the finding. Head CT 08/05/16 15:19 IMPRESSION: No acute intracranial abnormality identified. Small posterior scalp hematoma. No skull fracture. Hip X-Ray 08/05/16 15:19 IMPRESSION: Comminuted fracture of the proximal diaphysis of the left femur with multiple small butterfly fragment seen throughout. The distal fragment appears to be proximally and medially displaced relation to more proximal fragment. No other fractures identified. Hand X-Ray 08/05/16 15:25 IMPRESSION: 1. Linear fracture through the base of the 1st metacarpal on the left. Obliquely oriented fracture through the lateral aspect of the distal 5th proximal phalanx. There is minimal displacement of the fracture fragments. 2. No acute fracture or dislocation identified in the right hand. Lower Extremity CT 08/05/16 15:26 IMPRESSION: Highly comminuted proximal left femoral diaphysis fracture at and just distal the level of the left lesser trochanter. There is angulation and foreshortening at the fracture site Femur X-Ray 08/06/16 00:00 IMPRESSION: Intra procedural imaging and fluoro Fluoroscopy 08/06/16 00:00 IMPRESSION: Intra procedural imaging and fluoro Chest X-Ray 08/11/16 10:43 IMPRESSION: NO SIGNIFICANT RADIOGRAPHIC FINDING IN THE CHEST. Assessment & Plan - Diagnosis (1) Systemic inflammatory response syndrome (SIRS) Is this a current diagnosis for this admission?: YesPlan: Secondary to left leg cellulitis. (2) Left leg cellulitis Is this a current diagnosis for this admission?: YesPlan: Continue IV Ancef. (3) Fracture of proximal end of left femur Qualifiers: Encounter type: initial encounter Fracture type: closed Qualified Code(s): S72.002A - Fracture of unspecified part of neck of left femur, initial encounter for closed fracture Is this a current diagnosis for this admission?: YesPlan: Continue physical therapy as inpatient for now. Patient has no insurance and therefore probably cannot go to acute rehabilitation. He resides with his mother at baseline. He has been ambulating personally 50 feet with rolling walker. (4) Acute blood loss as cause of postoperative anemia Is this a current diagnosis for this admission?: YesPlan: Patient has been transfuse a total of 5 units PRBC over course of admission secondary to acute blood loss anemia associated with long bone fracture. Monitor H&H closely with reinitiation of DVT prophylaxis. (5) Abrasions of multiple sites Is this a current diagnosis for this admission?: Yes (6) Acute metabolic encephalopathy Is this a current diagnosis for this admission?: YesPlan: Resolved. 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 Continue scheduled Humalog. Continue sliding scale insulin. (9) Diabetic neuropathy Qualifiers: Diabetes mellitus type: type 1 Diabetes mellitus complication detail: diabetic polyneuropathy Qualified Code(s): E10.42 - Type 1 diabetes mellitus with diabetic polyneuropathy Is this a current diagnosis for this admission?: YesPlan: Continue Neurontin. - Time Time Spent with patient: 25-34 minutes
[2016-08-12] MEDS: SENNOSIDES/DOCUSATE 8.6-50 MG 1 EACH TABLET PO SCH (22:29)
[2016-08-13] MEDS: CEFAZOLIN 1 GM/D5W RTU 50 ML IV SCH ×2 (00:23→07:15)
[2016-08-13 04:53] LABS: ABSOLUTE BASOPHILS # (AUTO) 0.1 10^3/uL (0.0-0.2); ABSOLUTE EOSINOPHILS # (AUTO) 0.2 10^3/uL (0.0-0.6); ABSOLUTE LYMPHOCYTES (AUTO) 1.8 10^3/uL (0.5-4.7); ABSOLUTE MONOCYTES (AUTO) 1.7 10^3/uL (0.1-1.4); BASOPHILS % (AUTO) 0.8 % (0-2); HEMATOCRIT 35.8 % (37.9-51.0); HEMOGLOBIN 11.7 g/dL (13.5-17.0); HGB HCT DIFFERENCE -0.7; LYMPHOCYTES % (AUTO) 20.7 % (13-45); MEAN CORPUSCULAR HEMOGLOBIN 29.4 pg (27.0-33.4); MEAN CORPUSCULAR HGB CONC 32.8 g/dL (32.0-36.0); MEAN CORPUSCULAR VOLUME 90 fl (80-97); MONOCYTES % (AUTO) 19.6 % (3-13); RED CELL DISTRIBUTION WIDTH 14.1 % (11.5-14.0); SEGMENTED NEUTROPHILS % (AUTO) 56.9 % (42-78); WHITE BLOOD COUNT 8.8 10^3/uL (4.0-10.5)
[2016-08-13 05:20] LABS: ANION GAP 9 (5-19); BLOOD UREA NITROGEN 17 mg/dL (7-20); CALCIUM 9.3 mg/dL (8.4-10.2); CARBON DIOXIDE 31 mmol/L (22-30); CHLORIDE 97 mmol/L (98-107); CREATININE RESULT 0.84 mg/dL (0.52-1.25); GLUCOSE 178 mg/dL (75-110); POTASSIUM 4.8 mmol/L (3.6-5.0); SODIUM 137.4 mmol/L (137-145)
[2016-08-13] MEDS: OXYCODONE HCL IR 5 MG TABLET PO PRN ×2 (06:22→10:43)
[2016-08-13] MEDS ORDERED: CEFAZOLIN INJ 1 GM VIAL ONE (06:41)
--- NOTE | 2016-08-13 07:01 | PDOC PROGRESS REPORT ---
Subjective Progress Note for:: 08/13/16 Subjective:: And complaining of pain in the left leg and inability to move it by himself Physical Exam Vital Signs: Temp Pulse Resp BP Pulse Ox 37.0 C 95 20 92/60 L 96 08/13/16 00:12 08/13/16 00:12 08/13/16 00:12 08/13/16 00:12 08/13/16 00:12 Intake & Output 08/11/16 08/12/16 08/13/16 06:59 06:59 06:59 Intake Total 1613 1438 766 Output Total 1950 1790 1100 Balance -337 -352 -334 General appearance: PRESENT: mild distress Respiratory exam: PRESENT: unlabored Pulses: PRESENT: +1 pedal pulses bilateral Vascular exam: PRESENT: normal capillary refill Extremities exam: PRESENT: other - Left lower extremity dressing clean dry and intact. Left thigh swelling decreasing. Results Laboratory Results: 08/13/16 04:22 08/13/16 04:22 08/13/16 08/13/16 04:22 04:22 WBC 8.8 RBC 4.00 L Hgb 11.7 L Hct 35.8 L MCV 90 MCH 29.4 MCHC 32.8 RDW 14.1 H Plt Count 459 H Seg Neutrophils % 56.9 Lymphocytes % 20.7 Monocytes % 19.6 H Eosinophils % 2.0 Basophils % 0.8 Absolute Neutrophils 5.0 Absolute Lymphocytes 1.8 Absolute Monocytes 1.7 H Absolute Eosinophils 0.2 Absolute Basophils 0.1 Sodium 137.4 Potassium 4.8 Chloride 97 L Carbon Dioxide 31 H Anion Gap 9 BUN 17 Creatinine 0.84 Est GFR ( Amer) > 60 Est GFR (Non-Af Amer) > 60 Glucose 178 H Calcium 9.3 Impressions: Abdomen/Pelvis CT 08/05/16 15:19 IMPRESSION: 1. No traumatic vascular, solid organ, hollow viscous organ, or bony injury identified within the chest, abdomen, or pelvis. 2. Partially visualized comminuted fracture of the proximal diaphysis of the left femur. Please see separate report from the lower extremity for full details regarding the finding. Cervical Spine CT 08/05/16 15:19 IMPRESSION: CHRONIC DEGENERATIVE CHANGES. NO ACUTE FINDINGS. Nodular density noted in the left lung apex likely representing scar versus underlying nodule. Chest CT 08/05/16 15:19 IMPRESSION: 1. No traumatic vascular, solid organ, hollow viscous organ, or bony injury identified within the chest, abdomen, or pelvis. 2. Partially visualized comminuted fracture of the proximal diaphysis of the left femur. Please see separate report from the lower extremity for full details regarding the finding. Head CT 08/05/16 15:19 IMPRESSION: No acute intracranial abnormality identified. Small posterior scalp hematoma. No skull fracture. Hip X-Ray 08/05/16 15:19 IMPRESSION: Comminuted fracture of the proximal diaphysis of the left femur with multiple small butterfly fragment seen throughout. The distal fragment appears to be proximally and medially displaced relation to more proximal fragment. No other fractures identified. Hand X-Ray 08/05/16 15:25 IMPRESSION: 1. Linear fracture through the base of the 1st metacarpal on the left. Obliquely oriented fracture through the lateral aspect of the distal 5th proximal phalanx. There is minimal displacement of the fracture fragments. 2. No acute fracture or dislocation identified in the right hand. Lower Extremity CT 08/05/16 15:26 IMPRESSION: Highly comminuted proximal left femoral diaphysis fracture at and just distal the level of the left lesser trochanter. There is angulation and foreshortening at the fracture site Femur X-Ray 08/06/16 00:00 IMPRESSION: Intra procedural imaging and fluoro Fluoroscopy 08/06/16 00:00 IMPRESSION: Intra procedural imaging and fluoro Chest X-Ray 08/11/16 10:43 IMPRESSION: NO SIGNIFICANT RADIOGRAPHIC FINDING IN THE CHEST. 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 When he becomes independent, consideration could be given to discharge home with home health (3) Acute blood loss as cause of postoperative anemia Is this a current diagnosis for this admission?: Yes - Time Time Spent with patient: 15-24 minutes Anticipated discharge: Home with Homehealth Within: within 48 hours
[2016-08-13] MEDS: INSULIN LISPRO 100 UNIT/ML 3 ML VIAL SUBCUT SCH ×3 (08:52→17:03)
[2016-08-13] MEDS: ENOXAPARIN SODIUM INJ 40 MG/0.4 ML DISP.SYRIN SUBCUT SCH (09:30)
[2016-08-13] MEDS: MAGNESIUM OXIDE 400 MG TABLET PO SCH ×2 (09:32→17:12)
[2016-08-13] MEDS: INSULIN GLARGINE,HUM.REC.ANLOG 300 UNIT/3 ML INSULN.PEN SUBCUT SCH (09:33)
[2016-08-13] MEDS: DOCUSATE SODIUM 100 MG CAPSULE PO SCH ×2 (09:33→17:12)
[2016-08-13] MEDS: GABAPENTIN 300 MG CAPSULE PO SCH ×3 (09:33→17:12)
[2016-08-13] MEDS: HUM INSULIN NPH/REG INSULIN HM 100 UNIT/1 ML 3 ML SUBCUT SCH ×2 (09:34→17:03)
[2016-08-13] MEDS: CLINDAMYCIN 300 MG/D5W RTU 50 ML IV SCH (14:10)
--- NOTE | 2016-08-13 16:03 | PDOC PROGRESS REPORT ---
Subjective Progress Note for:: 08/13/16 Subjective:: Left leg pain and swelling improving daily. Patient is concerned however that he is having itching after dosage of Ancef. Patient denies fever, chills, headache, new focal weakness, chest pain, shortness of breath, abdominal pain, nausea, vomiting, diarrhea, constipation. Physical Exam Vital Signs: Temp Pulse Resp BP Pulse Ox 98.7 F 102 H 20 92/58 L 99 08/13/16 11:17 08/13/16 11:17 08/13/16 11:17 08/13/16 11:17 08/13/16 11:17 Intake & Output 08/12/16 08/13/16 08/14/16 06:59 06:59 06:59 Intake Total 1438 1466 Output Total 1790 1800 Balance -352 -334 GENERAL: No acute distress HEENT: Conjunctiva clear, nonicteric, moist mucous membranes, no JVD, midline trachea RESPIRATORY: Clear to auscultation bilaterally, no wheezes, no rhonchi CARDIAC: Regular rate and rhythm, no murmurs/gallops/rubs ABDOMEN: Soft, nondistended, nontender, positive bowel sounds, no rebound, no guarding EXTREMETIES: Left lower extremity edema, erythema, tenderness NEUROLOGIC: Alert, oriented to person/place/time, CN's grossly intact, no focal deficits SKIN: Left hip incision intact with no drainage PSYCH: Normal mood, normal affect Results Laboratory Results: 08/13/16 04:22 08/13/16 04:22 08/13/16 08/13/16 04:22 04:22 WBC 8.8 RBC 4.00 L Hgb 11.7 L Hct 35.8 L MCV 90 MCH 29.4 MCHC 32.8 RDW 14.1 H Plt Count 459 H Seg Neutrophils % 56.9 Lymphocytes % 20.7 Monocytes % 19.6 H Eosinophils % 2.0 Basophils % 0.8 Absolute Neutrophils 5.0 Absolute Lymphocytes 1.8 Absolute Monocytes 1.7 H Absolute Eosinophils 0.2 Absolute Basophils 0.1 Sodium 137.4 Potassium 4.8 Chloride 97 L Carbon Dioxide 31 H Anion Gap 9 BUN 17 Creatinine 0.84 Est GFR ( Amer) > 60 Est GFR (Non-Af Amer) > 60 Glucose 178 H Calcium 9.3 08/11/16 16:11 Clean Catch Midstream Urine Culture - Final NO GROWTH 2 DAYS Impressions: Abdomen/Pelvis CT 08/05/16 15:19 IMPRESSION: 1. No traumatic vascular, solid organ, hollow viscous organ, or bony injury identified within the chest, abdomen, or pelvis. 2. Partially visualized comminuted fracture of the proximal diaphysis of the left femur. Please see separate report from the lower extremity for full details regarding the finding. Cervical Spine CT 08/05/16 15:19 IMPRESSION: CHRONIC DEGENERATIVE CHANGES. NO ACUTE FINDINGS. Nodular density noted in the left lung apex likely representing scar versus underlying nodule. Chest CT 08/05/16 15:19 IMPRESSION: 1. No traumatic vascular, solid organ, hollow viscous organ, or bony injury identified within the chest, abdomen, or pelvis. 2. Partially visualized comminuted fracture of the proximal diaphysis of the left femur. Please see separate report from the lower extremity for full details regarding the finding. Head CT 08/05/16 15:19 IMPRESSION: No acute intracranial abnormality identified. Small posterior scalp hematoma. No skull fracture. Hip X-Ray 08/05/16 15:19 IMPRESSION: Comminuted fracture of the proximal diaphysis of the left femur with multiple small butterfly fragment seen throughout. The distal fragment appears to be proximally and medially displaced relation to more proximal fragment. No other fractures identified. Hand X-Ray 08/05/16 15:25 IMPRESSION: 1. Linear fracture through the base of the 1st metacarpal on the left. Obliquely oriented fracture through the lateral aspect of the distal 5th proximal phalanx. There is minimal displacement of the fracture fragments. 2. No acute fracture or dislocation identified in the right hand. Lower Extremity CT 08/05/16 15:26 IMPRESSION: Highly comminuted proximal left femoral diaphysis fracture at and just distal the level of the left lesser trochanter. There is angulation and foreshortening at the fracture site Femur X-Ray 08/06/16 00:00 IMPRESSION: Intra procedural imaging and fluoro Fluoroscopy 08/06/16 00:00 IMPRESSION: Intra procedural imaging and fluoro Chest X-Ray 08/11/16 10:43 IMPRESSION: NO SIGNIFICANT RADIOGRAPHIC FINDING IN THE CHEST. Assessment & Plan - Diagnosis (1) Systemic inflammatory response syndrome (SIRS) Is this a current diagnosis for this admission?: YesPlan: Secondary to left leg cellulitis. (2) Left leg cellulitis Is this a current diagnosis for this admission?: YesPlan: Discontinue Ancef secondary to allergic drug reaction. Start IV clindamycin for now. (3) Fracture of proximal end of left femur Qualifiers: Encounter type: initial encounter Fracture type: closed Qualified Code(s): S72.002A - Fracture of unspecified part of neck of left femur, initial encounter for closed fracture Is this a current diagnosis for this admission?: YesPlan: Continue physical therapy as inpatient for now. Patient has no insurance and therefore probably cannot go to acute rehabilitation. He resides with his mother at baseline. He has been ambulating with rolling walker. (4) Acute blood loss as cause of postoperative anemia Is this a current diagnosis for this admission?: YesPlan: Patient has been transfuse a total of 5 units PRBC over course of admission secondary to acute blood loss anemia associated with long bone fracture. H&H remained stable with reinitiation of DVT prophylaxis. (5) Abrasions of multiple sites Is this a current diagnosis for this admission?: Yes (6) Acute metabolic encephalopathy Is this a current diagnosis for this admission?: YesPlan: Resolved. 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 Continue scheduled Humalog. Continue sliding scale insulin. (9) Diabetic neuropathy Qualifiers: Diabetes mellitus type: type 1 Diabetes mellitus complication detail: diabetic polyneuropathy Qualified Code(s): E10.42 - Type 1 diabetes mellitus with diabetic polyneuropathy Is this a current diagnosis for this admission?: YesPlan: Continue Neurontin. (10) Allergic drug reaction Is this a current diagnosis for this admission?: YesPlan: Patient having itching after dosages of Ancef. Ancef discontinued. Ancef noted as allergic drug reaction. - Time Time Spent with patient: 35 or more minutes Anticipated discharge: Home
[2016-08-13] MEDS: LACTOBACILLUS ACIDOPHILUS 250 MG TAB PO SCH (17:13)
[2016-08-13] MEDS: SENNOSIDES/DOCUSATE 8.6-50 MG 1 EACH TABLET PO SCH (23:21)
[2016-08-13] MEDS: INSULIN LISPRO 100 UNIT/ML 3 ML VIAL SUBCUT PRN (23:23)
[2016-08-14] MEDS: CLINDAMYCIN 300 MG/D5W RTU 50 ML IV SCH ×4 (00:34→22:58)
[2016-08-14] MEDS: ACETAMINOPHEN 325 MG TABLET PO PRN ×2 (02:16→09:37)
[2016-08-14 05:29] LABS: ANION GAP 10 (5-19); BLOOD UREA NITROGEN 17 mg/dL (7-20); CALCIUM 9.6 mg/dL (8.4-10.2); CARBON DIOXIDE 31 mmol/L (22-30); CHLORIDE 97 mmol/L (98-107); CREATININE RESULT 0.82 mg/dL (0.52-1.25); GLUCOSE 169 mg/dL (75-110); SODIUM 137.7 mmol/L (137-145)
[2016-08-14 06:37] LABS: ABSOLUTE BASOPHILS # (AUTO) 0.1 10^3/uL (0.0-0.2); ABSOLUTE EOSINOPHILS # (AUTO) 0.2 10^3/uL (0.0-0.6); ABSOLUTE LYMPHOCYTES (AUTO) 1.7 10^3/uL (0.5-4.7); ABSOLUTE NEUT (AUTO) 8.4 10^3/uL (1.7-8.2); BASOPHILS % (AUTO) 0.6 % (0-2); EOSINOPHILS % (AUTO) 1.4 % (0-6); HEMOGLOBIN 11.6 g/dL (13.5-17.0); HGB HCT DIFFERENCE -0.2; MEAN CORPUSCULAR HEMOGLOBIN 29.5 pg (27.0-33.4); MEAN CORPUSCULAR HGB CONC 33.1 g/dL (32.0-36.0); MEAN CORPUSCULAR VOLUME 89 fl (80-97); RED BLOOD COUNT 3.92 10^6/uL (4.35-5.55); RED CELL DISTRIBUTION WIDTH 13.6 % (11.5-14.0); WHITE BLOOD COUNT 12.3 10^3/uL (4.0-10.5)
[2016-08-14] MEDS: HUM INSULIN NPH/REG INSULIN HM 100 UNIT/1 ML 3 ML SUBCUT SCH ×2 (08:50→17:13)
[2016-08-14] MEDS: ENOXAPARIN SODIUM INJ 40 MG/0.4 ML DISP.SYRIN SUBCUT SCH (08:50)
[2016-08-14] MEDS: INSULIN LISPRO 100 UNIT/ML 3 ML VIAL SUBCUT SCH ×3 (08:50→17:16)
[2016-08-14] MEDS: INSULIN LISPRO 100 UNIT/ML 3 ML VIAL SUBCUT PRN ×2 (08:51→11:30)
[2016-08-14] MEDS: GABAPENTIN 300 MG CAPSULE PO SCH ×3 (09:36→17:14)
[2016-08-14] MEDS: LACTOBACILLUS ACIDOPHILUS 250 MG TAB PO SCH ×2 (09:36→17:14)
[2016-08-14] MEDS: DOCUSATE SODIUM 100 MG CAPSULE PO SCH ×2 (09:36→17:13)
[2016-08-14] MEDS: MAGNESIUM OXIDE 400 MG TABLET PO SCH ×2 (09:37→17:14)
[2016-08-14] MEDS: INSULIN GLARGINE,HUM.REC.ANLOG 300 UNIT/3 ML INSULN.PEN SUBCUT SCH (09:51)
[2016-08-14] MEDS ORDERED: MAGNESIUM HYDROXIDE SUSP 30 ML UDCUP PO PRN (10:25)
[2016-08-14] MEDS: OXYCODONE HCL IR 5 MG TABLET PO PRN ×3 (11:13→23:10)
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
--- NOTE | 2016-08-14 11:49 | PDOC PROGRESS REPORT ---
Subjective Progress Note for:: 08/14/16 Subjective:: Patient seen this AM. No issues overnight. Pain improving. Denies CP/SOB. Physical Exam Vital Signs: Temp Pulse Resp BP Pulse Ox 99.1 F 100 16 133/76 H 100 08/13/16 23:56 08/13/16 23:56 08/13/16 23:56 08/13/16 23:56 08/13/16 23:56 Intake & Output 08/13/16 08/14/16 08/15/16 06:59 06:59 06:59 Intake Total 1466 1819 Output Total 1800 3275 Balance -334 -1456 Extremities exam: PRESENT: other - Left lower extremity: Dressing clean/dry/ intact no erythema or drainage. Mild thigh swelling. Compartments soft and compressible no sign of compartment syndrome. No calf tenderness. Intact plantar flexion/dorsiflexion. Results Laboratory Results: 08/14/16 06:24 08/14/16 04:50 08/14/16 08/14/16 04:50 06:24 WBC 12.3 H RBC 3.92 L Hgb 11.6 L Hct 35.0 L MCV 89 MCH 29.5 MCHC 33.1 RDW 13.6 Plt Count 485 H Seg Neutrophils % 68.0 Lymphocytes % 14.0 Monocytes % 16.0 H Eosinophils % 1.4 Basophils % 0.6 Absolute Neutrophils 8.4 H Absolute Lymphocytes 1.7 Absolute Monocytes 2.0 H Absolute Eosinophils 0.2 Absolute Basophils 0.1 Sodium 137.7 Potassium 5.0 Chloride 97 L Carbon Dioxide 31 H Anion Gap 10 BUN 17 Creatinine 0.82 Est GFR ( Amer) > 60 Est GFR (Non-Af Amer) > 60 Glucose 169 H Calcium 9.6 08/11/16 16:11 Clean Catch Midstream Urine Culture - Final NO GROWTH 2 DAYS Impressions: Abdomen/Pelvis CT 08/05/16 15:19 IMPRESSION: 1. No traumatic vascular, solid organ, hollow viscous organ, or bony injury identified within the chest, abdomen, or pelvis. 2. Partially visualized comminuted fracture of the proximal diaphysis of the left femur. Please see separate report from the lower extremity for full details regarding the finding. Cervical Spine CT 08/05/16 15:19 IMPRESSION: CHRONIC DEGENERATIVE CHANGES. NO ACUTE FINDINGS. Nodular density noted in the left lung apex likely representing scar versus underlying nodule. Chest CT 08/05/16 15:19 IMPRESSION: 1. No traumatic vascular, solid organ, hollow viscous organ, or bony injury identified within the chest, abdomen, or pelvis. 2. Partially visualized comminuted fracture of the proximal diaphysis of the left femur. Please see separate report from the lower extremity for full details regarding the finding. Head CT 08/05/16 15:19 IMPRESSION: No acute intracranial abnormality identified. Small posterior scalp hematoma. No skull fracture. Hip X-Ray 08/05/16 15:19 IMPRESSION: Comminuted fracture of the proximal diaphysis of the left femur with multiple small butterfly fragment seen throughout. The distal fragment appears to be proximally and medially displaced relation to more proximal fragment. No other fractures identified. Hand X-Ray 08/05/16 15:25 IMPRESSION: 1. Linear fracture through the base of the 1st metacarpal on the left. Obliquely oriented fracture through the lateral aspect of the distal 5th proximal phalanx. There is minimal displacement of the fracture fragments. 2. No acute fracture or dislocation identified in the right hand. Lower Extremity CT 08/05/16 15:26 IMPRESSION: Highly comminuted proximal left femoral diaphysis fracture at and just distal the level of the left lesser trochanter. There is angulation and foreshortening at the fracture site Femur X-Ray 08/06/16 00:00 IMPRESSION: Intra procedural imaging and fluoro Fluoroscopy 08/06/16 00:00 IMPRESSION: Intra procedural imaging and fluoro Chest X-Ray 08/11/16 10:43 IMPRESSION: NO SIGNIFICANT RADIOGRAPHIC FINDING IN THE CHEST. Assessment & Plan - Diagnosis (1) Fracture of proximal end of left femur Qualifiers: Encounter type: subsequent encounter Fracture type: closed Fracture healing: with routine healing Qualified Code(s): S72.002D - Fracture of unspecified part of neck of left femur, subsequent encounter for closed fracture with routine healing Is this a current diagnosis for this admission?: YesPlan: Status post left IM nail #1 pain control #2 Lovenox for DVT prophylaxis #3 physical therapy patient walked 100 feet yesterday. #4 discharge to longterm facility when bed available and okay with medicine.
[2016-08-14] MEDS: SENNOSIDES/DOCUSATE 8.6-50 MG 1 EACH TABLET PO SCH (22:52)
[2016-08-15] MEDS: CLINDAMYCIN 300 MG/D5W RTU 50 ML IV SCH ×2 (05:36→13:21)
[2016-08-15 07:22] LABS: ABSOLUTE BASOPHILS # (AUTO) 0.1 10^3/uL (0.0-0.2); ABSOLUTE EOSINOPHILS # (AUTO) 0.1 10^3/uL (0.0-0.6); ABSOLUTE LYMPHOCYTES (AUTO) 1.8 10^3/uL (0.5-4.7); ABSOLUTE MONOCYTES (AUTO) 1.4 10^3/uL (0.1-1.4); ABSOLUTE NEUT (AUTO) 8.2 10^3/uL (1.7-8.2); EOSINOPHILS % (AUTO) 1.3 % (0-6); HEMATOCRIT 33.1 % (37.9-51.0); HEMOGLOBIN 11.2 g/dL (13.5-17.0); HGB HCT DIFFERENCE 0.5; LYMPHOCYTES % (AUTO) 15.3 % (13-45); MEAN CORPUSCULAR VOLUME 88 fl (80-97); MONOCYTES % (AUTO) 12.3 % (3-13); RED BLOOD COUNT 3.75 10^6/uL (4.35-5.55); RED CELL DISTRIBUTION WIDTH 13.4 % (11.5-14.0); SEGMENTED NEUTROPHILS % (AUTO) 70.1 % (42-78); WHITE BLOOD COUNT 11.6 10^3/uL (4.0-10.5)
[2016-08-15 07:31] LABS: ALBUMIN 2.7 g/dL (3.5-5.0); ANION GAP 9 (5-19); BLOOD UREA NITROGEN 21 mg/dL (7-20); CALCIUM 9.3 mg/dL (8.4-10.2); CARBON DIOXIDE 28 mmol/L (22-30); CHLORIDE 97 mmol/L (98-107); GLUCOSE 280 mg/dL (75-110); PHOSPHORUS 4.1 mg/dL (2.5-4.5); POTASSIUM 4.8 mmol/L (3.6-5.0); SODIUM 133.5 mmol/L (137-145)
[2016-08-15] MEDS: ENOXAPARIN SODIUM INJ 40 MG/0.4 ML DISP.SYRIN SUBCUT SCH (08:18)
[2016-08-15] MEDS: HUM INSULIN NPH/REG INSULIN HM 100 UNIT/1 ML 3 ML SUBCUT SCH ×2 (08:18→16:16)
[2016-08-15] MEDS: INSULIN LISPRO 100 UNIT/ML 3 ML VIAL SUBCUT SCH ×3 (08:20→16:16)
[2016-08-15] MEDS: OXYCODONE HCL IR 5 MG TABLET PO PRN ×4 (08:31→23:58)
[2016-08-15] MEDS: GABAPENTIN 300 MG CAPSULE PO SCH ×3 (09:12→17:10)
[2016-08-15] MEDS: LACTOBACILLUS ACIDOPHILUS 250 MG TAB PO SCH ×2 (09:12→17:10)
[2016-08-15] MEDS: DOCUSATE SODIUM 100 MG CAPSULE PO SCH ×2 (09:13→17:10)
[2016-08-15] MEDS: INSULIN GLARGINE,HUM.REC.ANLOG 300 UNIT/3 ML INSULN.PEN SUBCUT SCH (09:13)
[2016-08-15] MEDS: MAGNESIUM OXIDE 400 MG TABLET PO SCH ×2 (09:13→17:10)
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
[2016-08-15] MEDS: CLINDAMYCIN HCL 150 MG CAPSULE PO SCH (22:48)
[2016-08-15] MEDS: SENNOSIDES/DOCUSATE 8.6-50 MG 1 EACH TABLET PO SCH (22:49)
[2016-08-16 05:04] LABS: ABSOLUTE BASOPHILS # (AUTO) 0.1 10^3/uL (0.0-0.2); ABSOLUTE EOSINOPHILS # (AUTO) 0.1 10^3/uL (0.0-0.6); ABSOLUTE LYMPHOCYTES (AUTO) 2.2 10^3/uL (0.5-4.7); ABSOLUTE MONOCYTES (AUTO) 1.3 10^3/uL (0.1-1.4); BASOPHILS % (AUTO) 0.8 % (0-2); EOSINOPHILS % (AUTO) 1.1 % (0-6); HEMATOCRIT 34.5 % (37.9-51.0); HEMOGLOBIN 11.3 g/dL (13.5-17.0); HGB HCT DIFFERENCE -0.6; LYMPHOCYTES % (AUTO) 20.6 % (13-45); MEAN CORPUSCULAR HEMOGLOBIN 29.2 pg (27.0-33.4); MEAN CORPUSCULAR HGB CONC 32.7 g/dL (32.0-36.0); MEAN CORPUSCULAR VOLUME 89 fl (80-97); MONOCYTES % (AUTO) 12.2 % (3-13); RED BLOOD COUNT 3.86 10^6/uL (4.35-5.55); RED CELL DISTRIBUTION WIDTH 13.6 % (11.5-14.0); SEGMENTED NEUTROPHILS % (AUTO) 65.3 % (42-78); WHITE BLOOD COUNT 10.7 10^3/uL (4.0-10.5)
[2016-08-16 05:25] LABS: ALBUMIN 2.7 g/dL (3.5-5.0); ANION GAP 8 (5-19); BLOOD UREA NITROGEN 22 mg/dL (7-20); CALCIUM 9.4 mg/dL (8.4-10.2); CARBON DIOXIDE 29 mmol/L (22-30); CHLORIDE 97 mmol/L (98-107); CREATININE RESULT 0.79 mg/dL (0.52-1.25); GLUCOSE 242 mg/dL (75-110); PHOSPHORUS 4.3 mg/dL (2.5-4.5); POTASSIUM 5.2 mmol/L (3.6-5.0); SODIUM 134.1 mmol/L (137-145)
[2016-08-16] MEDS: CLINDAMYCIN HCL 150 MG CAPSULE PO SCH ×3 (05:37→22:27)
[2016-08-16] MEDS: HUM INSULIN NPH/REG INSULIN HM 100 UNIT/1 ML 3 ML SUBCUT SCH ×2 (08:26→18:33)
[2016-08-16] MEDS: INSULIN LISPRO 100 UNIT/ML 3 ML VIAL SUBCUT SCH ×3 (08:27→18:26)
[2016-08-16] MEDS: ENOXAPARIN SODIUM INJ 40 MG/0.4 ML DISP.SYRIN SUBCUT SCH (08:27)
[2016-08-16] MEDS: INSULIN GLARGINE,HUM.REC.ANLOG 300 UNIT/3 ML INSULN.PEN SUBCUT SCH (09:04)
[2016-08-16] MEDS: DOCUSATE SODIUM 100 MG CAPSULE PO SCH ×2 (09:06→18:24)
[2016-08-16] MEDS: LACTOBACILLUS ACIDOPHILUS 250 MG TAB PO SCH ×2 (09:06→18:36)
[2016-08-16] MEDS: GABAPENTIN 300 MG CAPSULE PO SCH ×3 (09:06→18:36)
[2016-08-16] MEDS: MAGNESIUM OXIDE 400 MG TABLET PO SCH ×2 (09:06→18:36)
[2016-08-16] MEDS: OXYCODONE HCL IR 5 MG TABLET PO PRN ×3 (09:06→18:48)
--- NOTE | 2016-08-16 14:13 | PDOC PROGRESS REPORT ---
Subjective Progress Note for:: 08/16/16 Subjective:: Patient is still complaining of pain in the left hip And but he is doing extremely well, ambulating with a walker No fever no chills The abrasions on the legs have cleared Physical Exam Vital Signs: Temp Pulse Resp BP Pulse Ox 98.2 F 90 14 106/69 97 08/16/16 10:50 08/16/16 10:50 08/16/16 10:50 08/16/16 10:50 08/16/16 10:50 Intake & Output 08/15/16 08/16/16 08/17/16 00:59 00:59 00:59 Intake Total 1106 2450 500 Output Total 2425 1275 300 Balance -1319 1175 200 Weight 60.5 kg 60.3 kg General appearance: PRESENT: no acute distress, well-developed, well-nourished Head exam: PRESENT: atraumatic, normocephalic Eye exam: PRESENT: conjunctiva pink, EOMI, PERRLA. ABSENT: scleral icterus Ear exam: PRESENT: normal external ear exam Mouth exam: PRESENT: moist, tongue midline Neck exam: ABSENT: carotid bruit, JVD, lymphadenopathy, thyromegaly Respiratory exam: PRESENT: clear to auscultation allison. ABSENT: rales, rhonchi, wheezes Cardiovascular exam: PRESENT: RRR. ABSENT: diastolic murmur, rubs, systolic murmur Pulses: PRESENT: normal dorsalis pedis pul Vascular exam: PRESENT: normal capillary refill GI/Abdominal exam: PRESENT: normal bowel sounds, soft. ABSENT: distended, guarding, mass, organolmegaly, rebound, tenderness Rectal exam: PRESENT: deferred Extremities exam: PRESENT: full ROM, other - Left hip somewhat swollen, swelling also left upper thigh The incision is clean. ABSENT: calf tenderness, clubbing, pedal edema Neurological exam: PRESENT: alert, awake, oriented to person, oriented to place , oriented to time, oriented to situation, CN II-XII grossly intact. ABSENT: motor sensory deficit Psychiatric exam: PRESENT: appropriate affect, normal mood. ABSENT: homicidal ideation, suicidal ideation Skin exam: PRESENT: dry, intact, warm. ABSENT: cyanosis, rash Results Laboratory Results: 08/16/16 04:17 08/16/16 04:17 08/16/16 08/16/16 04:17 04:17 WBC 10.7 H RBC 3.86 L Hgb 11.3 L Hct 34.5 L MCV 89 MCH 29.2 MCHC 32.7 RDW 13.6 Plt Count 600 H Seg Neutrophils % 65.3 Lymphocytes % 20.6 Monocytes % 12.2 Eosinophils % 1.1 Basophils % 0.8 Absolute Neutrophils 7.0 Absolute Lymphocytes 2.2 Absolute Monocytes 1.3 Absolute Eosinophils 0.1 Absolute Basophils 0.1 Sodium 134.1 L Potassium 5.2 H Chloride 97 L Carbon Dioxide 29 Anion Gap 8 BUN 22 H Creatinine 0.79 Est GFR ( Amer) > 60 Est GFR (Non-Af Amer) > 60 Glucose 242 H Calcium 9.4 Phosphorus 4.3 Albumin 2.7 L Impressions: Abdomen/Pelvis CT 08/05/16 15:19 IMPRESSION: 1. No traumatic vascular, solid organ, hollow viscous organ, or bony injury identified within the chest, abdomen, or pelvis. 2. Partially visualized comminuted fracture of the proximal diaphysis of the left femur. Please see separate report from the lower extremity for full details regarding the finding. Cervical Spine CT 08/05/16 15:19 IMPRESSION: CHRONIC DEGENERATIVE CHANGES. NO ACUTE FINDINGS. Nodular density noted in the left lung apex likely representing scar versus underlying nodule. Chest CT 08/05/16 15:19 IMPRESSION: 1. No traumatic vascular, solid organ, hollow viscous organ, or bony injury identified within the chest, abdomen, or pelvis. 2. Partially visualized comminuted fracture of the proximal diaphysis of the left femur. Please see separate report from the lower extremity for full details regarding the finding. Head CT 08/05/16 15:19 IMPRESSION: No acute intracranial abnormality identified. Small posterior scalp hematoma. No skull fracture. Hip X-Ray 08/05/16 15:19 IMPRESSION: Comminuted fracture of the proximal diaphysis of the left femur with multiple small butterfly fragment seen throughout. The distal fragment appears to be proximally and medially displaced relation to more proximal fragment. No other fractures identified. Hand X-Ray 08/05/16 15:25 IMPRESSION: 1. Linear fracture through the base of the 1st metacarpal on the left. Obliquely oriented fracture through the lateral aspect of the distal 5th proximal phalanx. There is minimal displacement of the fracture fragments. 2. No acute fracture or dislocation identified in the right hand. Lower Extremity CT 08/05/16 15:26 IMPRESSION: Highly comminuted proximal left femoral diaphysis fracture at and just distal the level of the left lesser trochanter. There is angulation and foreshortening at the fracture site Femur X-Ray 08/06/16 00:00 IMPRESSION: Intra procedural imaging and fluoro Fluoroscopy 08/06/16 00:00 IMPRESSION: Intra procedural imaging and fluoro Chest X-Ray 08/11/16 10:43 IMPRESSION: NO SIGNIFICANT RADIOGRAPHIC FINDING IN THE CHEST. Assessment & Plan - Diagnosis (1) S/p left hip fracture Is this a current diagnosis for this admission?: YesPlan: And repair Continue ambulation with physical therapy Just spoke with discharge planning Patient will need home health and home PT as he will go home So far patient has an uneventful postop course (2) Abrasions of multiple sites Is this a current diagnosis for this admission?: Yes (3) Cocaine abuse Is this a current diagnosis for this admission?: Yes (4) Diabetes Qualifiers: Diabetes mellitus type: type 2 Diabetes mellitus complication status: with neurologic complications Diabetes mellitus complication detail: with polyneuropathy 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
[2016-08-16] MEDS: SENNOSIDES/DOCUSATE 8.6-50 MG 1 EACH TABLET PO SCH (22:28)
[2016-08-17] MEDS: CLINDAMYCIN HCL 150 MG CAPSULE PO SCH ×3 (05:26→21:54)
[2016-08-17] MEDS: ENOXAPARIN SODIUM INJ 40 MG/0.4 ML DISP.SYRIN SUBCUT SCH (08:43)
[2016-08-17] MEDS: HUM INSULIN NPH/REG INSULIN HM 100 UNIT/1 ML 3 ML SUBCUT SCH ×2 (08:44→16:31)
[2016-08-17] MEDS: INSULIN LISPRO 100 UNIT/ML 3 ML VIAL SUBCUT SCH ×3 (08:45→16:32)
[2016-08-17] MEDS: DOCUSATE SODIUM 100 MG CAPSULE PO SCH ×2 (09:06→17:52)
[2016-08-17] MEDS: LACTOBACILLUS ACIDOPHILUS 250 MG TAB PO SCH ×2 (09:07→17:52)
[2016-08-17] MEDS: MAGNESIUM OXIDE 400 MG TABLET PO SCH ×2 (09:07→17:52)
[2016-08-17] MEDS: OXYCODONE HCL IR 5 MG TABLET PO PRN ×3 (09:07→20:02)
[2016-08-17] MEDS: GABAPENTIN 300 MG CAPSULE PO SCH ×3 (09:07→17:52)
[2016-08-17] MEDS: INSULIN GLARGINE,HUM.REC.ANLOG 300 UNIT/3 ML INSULN.PEN SUBCUT SCH (09:08)
--- NOTE | 2016-08-17 12:39 | PDOC PROGRESS REPORT ---
Subjective Progress Note for:: 08/17/16 Subjective:: Patient is doing extremely well No fever no chills no minimal pain he is ambulating with a walker and physical therapy He is awaiting to be discharged home with home PT Physical Exam Vital Signs: Temp Pulse Resp BP Pulse Ox 98.7 F 94 12 129/82 H 100 08/17/16 08:21 08/17/16 08:21 08/17/16 08:21 08/17/16 08:21 08/17/16 08:21 Intake & Output 08/16/16 08/17/16 08/18/16 00:59 00:59 00:59 Intake Total 2450 1193 400 Output Total 1275 1125 300 Balance 1175 68 100 Weight 60.5 kg 60.3 kg 59.4 kg Results Laboratory Results: 08/16/16 04:17 08/16/16 04:17 Impressions: Abdomen/Pelvis CT 08/05/16 15:19 IMPRESSION: 1. No traumatic vascular, solid organ, hollow viscous organ, or bony injury identified within the chest, abdomen, or pelvis. 2. Partially visualized comminuted fracture of the proximal diaphysis of the left femur. Please see separate report from the lower extremity for full details regarding the finding. Cervical Spine CT 08/05/16 15:19 IMPRESSION: CHRONIC DEGENERATIVE CHANGES. NO ACUTE FINDINGS. Nodular density noted in the left lung apex likely representing scar versus underlying nodule. Chest CT 08/05/16 15:19 IMPRESSION: 1. No traumatic vascular, solid organ, hollow viscous organ, or bony injury identified within the chest, abdomen, or pelvis. 2. Partially visualized comminuted fracture of the proximal diaphysis of the left femur. Please see separate report from the lower extremity for full details regarding the finding. Head CT 08/05/16 15:19 IMPRESSION: No acute intracranial abnormality identified. Small posterior scalp hematoma. No skull fracture. Hip X-Ray 08/05/16 15:19 IMPRESSION: Comminuted fracture of the proximal diaphysis of the left femur with multiple small butterfly fragment seen throughout. The distal fragment appears to be proximally and medially displaced relation to more proximal fragment. No other fractures identified. Hand X-Ray 08/05/16 15:25 IMPRESSION: 1. Linear fracture through the base of the 1st metacarpal on the left. Obliquely oriented fracture through the lateral aspect of the distal 5th proximal phalanx. There is minimal displacement of the fracture fragments. 2. No acute fracture or dislocation identified in the right hand. Lower Extremity CT 08/05/16 15:26 IMPRESSION: Highly comminuted proximal left femoral diaphysis fracture at and just distal the level of the left lesser trochanter. There is angulation and foreshortening at the fracture site Femur X-Ray 08/06/16 00:00 IMPRESSION: Intra procedural imaging and fluoro Fluoroscopy 08/06/16 00:00 IMPRESSION: Intra procedural imaging and fluoro Chest X-Ray 08/11/16 10:43 IMPRESSION: NO SIGNIFICANT RADIOGRAPHIC FINDING IN THE CHEST. 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
[2016-08-17] MEDS: SENNOSIDES/DOCUSATE 8.6-50 MG 1 EACH TABLET PO SCH (21:54)
[2016-08-18] MEDS: OXYCODONE HCL IR 5 MG TABLET PO PRN (04:45)
[2016-08-18] MEDS: CLINDAMYCIN HCL 150 MG CAPSULE PO SCH (05:48)
[2016-08-18] MEDS: HUM INSULIN NPH/REG INSULIN HM 100 UNIT/1 ML 3 ML SUBCUT SCH (08:21)
[2016-08-18] MEDS: ENOXAPARIN SODIUM INJ 40 MG/0.4 ML DISP.SYRIN SUBCUT SCH (08:24)
[2016-08-18] MEDS: INSULIN LISPRO 100 UNIT/ML 3 ML VIAL SUBCUT SCH (08:25)
[2016-08-18] MEDS: INSULIN GLARGINE,HUM.REC.ANLOG 300 UNIT/3 ML INSULN.PEN SUBCUT SCH (09:38)
[2016-08-18] MEDS: LACTOBACILLUS ACIDOPHILUS 250 MG TAB PO SCH (09:41)
[2016-08-18] MEDS: MAGNESIUM OXIDE 400 MG TABLET PO SCH (09:41)
[2016-08-18] MEDS: GABAPENTIN 300 MG CAPSULE PO SCH (09:41)
[2016-08-18] MEDS: DOCUSATE SODIUM 100 MG CAPSULE PO SCH (09:42)
[2016-08-18] MEDS ORDERED: ASPIRIN 325 MG TABLET, ENT COATED PO SCH (10:00)
[2016-08-18 13:17] VITALS: BP 122/77
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
== END 2016-08-18 14:51 | disposition home health service (06) | DRG 480 ==
LOC: ER 15:13 → EH 17:36 → 4N 21:35
PROVIDERS: ADMIT Orthopaedic Surgery; ATTEND Orthopaedic Surgery
PROC: 30233N1 Transfusion of Nonautologous Red Blood Cells into Peripheral Vein, Percutaneous Approach (ICD-10-PCS; 2016-08-06)
PROC: 0QS704Z Reposition Left Upper Femur with Internal Fixation Device, Open Approach (ICD-10-PCS; principal; 2016-08-06 13:00)
DX: S72.002A Fracture of unspecified part of neck of left femur, initial encounter for closed fracture (principal); T40.605A Adverse effect of unspecified narcotics, initial encounter; G92 Toxic encephalopathy; L03.116 Cellulitis of left lower limb; D62 Acute posthemorrhagic anemia; E83.42 Hypomagnesemia; K59.00 Constipation, unspecified; Z79.4 Long term (current) use of insulin; E11.42 Type 2 diabetes mellitus with diabetic polyneuropathy; S80.211A Abrasion, right knee, initial encounter; F14.10 Cocaine abuse, uncomplicated; F17.210 Nicotine dependence, cigarettes, uncomplicated; S00.81XA Abrasion of other part of head, initial encounter; S62.522A Displaced fracture of distal phalanx of left thumb, initial encounter for closed fracture; S62.202A Unspecified fracture of first metacarpal bone, left hand, initial encounter for closed fracture; V13.4XXA Pedal cycle driver injured in collision with car, pick-up truck or van in traffic accident, initial encounter; Y92.410 Unspecified street and highway as the place of occurrence of the external cause; Y93.55 Activity, bike riding; Z82.49 Family history of ischemic heart disease and other diseases of the circulatory system; Z86.14 Personal history of Methicillin resistant Staphylococcus aureus infection; I95.9 Hypotension, unspecified
CPT/HCPCS: 01230; 36415; 36430; 70450; 71010; 71260; 72125; 74177; 80048; 80053; 80069; 80307; 81001; 82272; 82565; 82962; 83036; 83735; 85025; 85027; 85362; 85384; 85610; 85730; 86850; 86900; 86901; 86920; 87086; 90715; 93005; 93010; 93971; 94799; 96374; 96375; 96376; 99291; C1713; J0330; J0690; J1170; J1200; J1650; J1741; J1815; J1940; J2250; J2270; J2310; J2370; J2405; J2550; J2704; J3010; J3475; J3490; J7030; J7050; J7120; P9016

== ENCOUNTER 2017-07-09 20:29 | Observation (INO) | payer MEDICAID ==
[2017-07-09] MEDS ORDERED: KETOROLAC TROMETHAMINE 60 MG/2 ML SDV IM ONE (21:58)
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
[2017-07-09] MEDS ORDERED: KETOROLAC TROMETHAMINE 60 MG/2 ML SDV IV ONE (22:11)
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
[2017-07-09 22:27] LABS: ALANINE AMINOTRANSFERASE 64 U/L (21-72); ALBUMIN 4.1 g/dL (3.5-5.0); ALKALINE PHOSPHATASE 128 U/L (38-126); ANION GAP 10 (5-19); ASPARTATE AMINO TRANSFERASE 53 U/L (17-59); BILIRUBIN,DIRECT 0.3 mg/dL (0.0-0.4); BILIRUBIN,TOTAL 0.3 mg/dL (0.2-1.3); BLOOD UREA NITROGEN 13 mg/dL (7-20); CALCIUM 10.2 mg/dL (8.4-10.2); CARBON DIOXIDE 26 mmol/L (22-30); CHLORIDE 103 mmol/L (98-107); GLUCOSE 376 mg/dL (75-110); POTASSIUM 3.9 mmol/L (3.6-5.0); SODIUM 138.8 mmol/L (137-145); TOTAL PROTEIN 6.8 g/dL (6.3-8.2)
[2017-07-09 22:33] LABS: ABSOLUTE BASOPHILS # (AUTO) 0.1 10^3/uL (0.0-0.2); ABSOLUTE EOSINOPHILS # (AUTO) 0.1 10^3/uL (0.0-0.6); ABSOLUTE LYMPHOCYTES (AUTO) 2.3 10^3/uL (0.5-4.7); ABSOLUTE MONOCYTES (AUTO) 0.9 10^3/uL (0.1-1.4); ABSOLUTE NEUT (AUTO) 7.6 10^3/uL (1.7-8.2); BASOPHILS % (AUTO) 0.6 % (0-2); EOSINOPHILS % (AUTO) 0.7 % (0-6); HEMATOCRIT 38.2 % (37.9-51.0); LYMPHOCYTES % (AUTO) 20.9 % (13-45); MEAN CORPUSCULAR HEMOGLOBIN 30.8 pg (27.0-33.4); MEAN CORPUSCULAR HGB CONC 33.9 g/dL (32.0-36.0); MEAN CORPUSCULAR VOLUME 91 fl (80-97); MONOCYTES % (AUTO) 8.4 % (3-13); PLATELET COUNT 215 10^3/uL (150-450); RED BLOOD COUNT 4.21 10^6/uL (4.35-5.55); RED CELL DISTRIBUTION WIDTH 12.8 % (11.5-14.0); SEGMENTED NEUTROPHILS % (AUTO) 69.4 % (42-78); TOTAL CELLS COUNTED % (AUTO) 100 %; WHITE BLOOD COUNT 10.9 10^3/uL (4.0-10.5)
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
[2017-07-10] MEDS ORDERED: MORPHINE SULFATE 10 MG/ML INJ IV ONE (00:07)
[2017-07-10] MEDS ORDERED: ONDANSETRON HCL INJ/PF 4 MG/2 ML SDV IV ONE (00:07)
[2017-07-10] MEDS ORDERED: INSULIN REG, HUMAN 100 UNIT/ML 3 ML VIAL (PYX) SUBCUT ONE (00:11)
[2017-07-10] MEDS ORDERED: ONDANSETRON HCL INJ/PF 4 MG/2 ML SDV IV PRN (03:19)
[2017-07-10] MEDS: HYDROMORPHONE HCL INJ/PF 2 MG/ML AMPULE IV PRN ×2 (03:53→07:26)
--- NOTE | 2017-07-10 08:44 | EKG REPORT ---
SEVERITY:- ABNORMAL ECG - SINUS RHYTHM ABNRM R PROG, CONSIDER ASMI OR LEAD PLACEMENT : Confirmed by: Jeff Oliver MD 10-Jul-2017 08:43:53
--- NOTE | 2017-07-10 08:46 | RADIOLOGY REPORT (SQ) ---
EXAM DESCRIPTION: CHEST PA/LAT COMPLETED DATE/TIME: 07/10/2017 8:37 am REASON FOR STUDY: pneumothorax, rib fracture COMPARISON: CT chest from 07/09/2017 and chest radiograph from 07/09/2017 EXAM PARAMETERS: NUMBER OF VIEWS: two views TECHNIQUE: Digital Frontal and Lateral radiographic views of the chest acquired. RADIATION DOSE: NA LIMITATIONS: none FINDINGS: LUNGS AND PLEURA: Stable to minimally improved small left pneumothorax with small left pl eural effusion/hemothorax. MEDIASTINUM AND HILAR STRUCTURES: No masses or contour abnormalities. HEART AND VASCULAR STRUCTURES: Heart normal size. No evidence for failure. BONES: Left-sided rib fractures better seen on prior CT. HARDWARE: None in the chest. OTHER: No other significant finding. IMPRESSION: STABLE TO MINIMALLY IMPROVED SMALL LEFT PNEUMOTHORAX WITH SMALL LEFT PLEURAL EFFUSION/HE MOTHORAX IN THE SETTING OF KNOWN RIB FRACTURES. TECHNICAL DOCUMENTATION: JOB ID: [id number] [employer]- All Rights Reserved
[2017-07-10] MEDS ORDERED: ACETAMINOPHEN 325 MG TABLET PO PRN (11:31)
[2017-07-10 12:09] VITALS: BP 127/67
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
== END 2017-07-10 13:46 | disposition home or self-care (01) ==
LOC: ER 20:29 → UNDOADMOB 07-10 00:20 → INTOOBSV 07-10 00:20 → EH 07-10 00:20 → 5 07-10 02:50
PROVIDERS: ATTEND Colon & Rectal Surgery
DX: S27.0XXA Traumatic pneumothorax, initial encounter (principal); S22.32XA Fracture of one rib, left side, initial encounter for closed fracture; Y04.2XXA Assault by strike against or bumped into by another person, initial encounter; Y93.89 Activity, other specified; T79.7XXA Traumatic subcutaneous emphysema, initial encounter; E11.65 Type 2 diabetes mellitus with hyperglycemia; F17.200 Nicotine dependence, unspecified, uncomplicated
CPT/HCPCS: 93005; 99285; 96374; 96375; 36415; 85025; 80053; 71020; 71010; 71260; 93010; G0378; J1885; J2270; J1170; J1815; J2405

== ENCOUNTER 2017-07-12 10:06 | Emergency (ER) | payer MEDICAID ==
--- NOTE | 2017-07-12 11:15 | RADIOLOGY REPORT (SQ) ---
EXAM DESCRIPTION: CHEST PA/LAT COMPLETED DATE/TIME: 07/12/2017 10:51 am REASON FOR STUDY: hx pneumothorax COMPARISON: 07/10/2017 EXAM PARAMETERS: NUMBER OF VIEWS: two views TECHNIQUE: Digital Frontal and Lateral radiographic views of the chest acquired. RADIATION DOSE: NA LIMITATIONS: none FINDINGS: LUNGS AND PLEURA: No acute consolidations are identified. A tiny residual pneumothorax on the left is identified with a small air-fluid level in the left costophrenic angle. The right lung remains clear and well expanded. MEDIASTINUM AND HILAR STRUCTURES: No masses or contour abnormalities. HEART AND VASCULAR STRUCTURES: Heart normal size. No evidence for failure. BONES: The previously described left 4th rib fracture is again identified. HARDWARE: None in the chest. OTHER: There is a small amount of residual subcutaneous air along the left lateral chest wall extendi ng into the left supraclavicular region. IMPRESSION: A tiny residual pneumothorax on the left is identified with a small air-fluid level in t he left costophrenic angle. No acute consolidations are identified. Other findings as noted above TECHNICAL DOCUMENTATION: JOB ID: [id number]- All Rights Reserved
[2017-07-12] MEDS ORDERED: MORPHINE SULFATE IR 15 MG TABLET PO ONE (11:23)
[2017-07-12 11:30] VITALS: BP 124/85
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
== END 2017-07-12 11:40 | disposition home or self-care (01) ==
LOC: ER 10:06
DX: J93.9 Pneumothorax, unspecified (principal); R07.89 Other chest pain; R06.02 Shortness of breath; F17.210 Nicotine dependence, cigarettes, uncomplicated
CPT/HCPCS: 71020; 99283

== ENCOUNTER → 2017-07-19 | Outpatient (CLI) | payer MEDICAID ==
--- NOTE | 2017-07-19 15:02 | XCELERA REPORT ---
[address] [address] Lower Extremity Arterial Evaluation Name: KAM PURDY Age: 56 yrs Gender: Male : 1960 Patient Status: Outpatient Patient Location: Study Date: 07/19/2017 10:10 AM Procedure: A color flow and duplex scan of the lower extremity arteries was performed bilaterally with velocity and waveform anaylsis. Reason For Study: PAIN Ordering Physician: ELENITA NGUYEN Performed By: Mariposa Pelletier Measurements and Calculations Right Left BALLROOM DANCE INSTRUCTOR PSV 111.9 106.4 cm/sec Prox PFA PSV -68.0 -76.6 cm/sec Prox SFA PSV 90.5 -98.2 cm/sec Mid SFA PSV -96.7 -104.8 cm/sec Dist SFA PSV -79.1 -90.8 cm/sec Prox Pop A PSV 53.0 54.6 cm/sec Dist CHRISTIAN PSV 77.2 96.8 cm/sec Dist BOTTLE HOUSE QUALITY CONTROL TECHNICIAN PSV 64.6 69.4 cm/sec Rafy Pedis PSV 95.8 91.1 cm/sec Right Side Arterial Evaluation Normal velocity and triphasic waveforms noted from the Common Femoral artery to the infregeniculate vessels. 0 % stenosis. Ankle Brachial index is 1.11. Left Side Arterial Evaluation Normal velocity and triphasic waveforms noted from the Common Femoral artery to the infregeniculate vessels. 0 % stenosis. Ankle Brachial index is 1.12. Interpretation Summary There is no evidence of hemodynamically significant arterial occlusive disease bilaterally at rest. : ELENITA NGUYEN > Jeff Will
== END ==
LOC: SP 09:46
PROVIDERS: ATTEND Surgery
DX: M79.606 Pain in leg, unspecified (principal); I99.8 Other disorder of circulatory system
CPT/HCPCS: 93925

== ENCOUNTER 2017-09-20 10:18 | Emergency (ER) | payer MEDICAID ==
--- NOTE | 2017-09-20 11:32 | ER Document Report ---
HPI - HPI Patient complains to provider of: Exposure to trichomonas Onset: Last week Pain Level: 0 Context: 57-year-old male came to the emergency room today because he was exposed to trichomonas. He is uncircumcised and has no penile discharge or testicular pain or swelling. No dysuria. No pelvic or abdominal pain. Associated Symptoms: None Exacerbated by: Denies Relieved by: Denies Similar symptoms previously: No Recently seen / treated by doctor: No - ROS ROS below otherwise negative: Yes Systems Reviewed and Negative: Yes All other systems reviewed and negative - REPRODUCTIVE Reproductive: DENIES: : Past Medical History - General Information source: Patient - Social History Smoking Status: Current Every Day Smoker Frequency of alcohol use: Social Drug Abuse: Cocaine Family History: Reviewed & Not Pertinent, CAD, DM, Hypertension Patient has suicidal ideation: No Patient has homicidal ideation: No - Past Medical History Cardiac Medical History: Reports: Hx Hypertension Endocrine Medical History: Reports: Hx Diabetes Mellitus Type 1, Hx Diabetes Mellitus Type 2 Skin Medical History: Reports Hx MRSA Past Surgical History: Reports: Hx Orthopedic Surgery - RIGHT THUMB, left leg - Immunizations Immunizations up to date: No Hx Diphtheria, Pertussis, Tetanus Vaccination: No - >5 yrs ago Vertical Provider Document - CONSTITUTIONAL Agree With Documented VS: Yes Exam Limitations: No Limitations - INFECTION CONTROL TRAVEL OUTSIDE OF THE [place] IN LAST 30 DAYS: No - HEENT HEENT: Normocephalic - NECK Neck: Supple - RESPIRATORY O2 Sat by Pulse Oximetry: 98 - MUSCULOSKELETAL/EXTREMETIES Musculoskeletal/Extremeties: MAEW - NEURO Level of Consciousness: Awake, Alert - DERM Integumentary: Warm, Dry Course - Re-evaluation Re-evalutation: 09/20/17 17:06 Patient call back for results the gonorrhea and Chlamydia were negative - Vital Signs Vital signs: Temp Pulse Resp BP Pulse Ox 98.3 F 85 17 122/70 98 09/20/17 10:23 09/20/17 10:23 09/20/17 10:23 09/20/17 10:23 09/20/17 10:23 Discharge - Discharge Clinical Impression: STD exposure Condition: Good Disposition: HOME, SELF-CARE Instructions: Azithromycin ([facility]), Chlamydia ([facility]), Gonorrhea ([facility]), Metronidazole ([facility]), Rocephin ([facility]), Trichomonas Infection ([facility]) Additional Instructions: Call me in 3 hours at for the STD culture results You have been treated for possible gonorrhea, possible chlamydia, possible trichomonas. Do not drink any alcohol today or tomorrow since he took the Flagyl Referrals: GAMLA SUTHERLAND MD [Primary Care Provider] - Follow up as needed
[2017-09-20] MEDS ORDERED: METRONIDAZOLE 500 MG TABLET PO ONE (12:30)
[2017-09-20] MEDS ORDERED: AZITHROMYCIN 250 MG TABLET PO ONE (12:30)
[2017-09-20] MEDS ORDERED: CEFTRIAXONE INJ 250 MG VIAL IM ONE (12:30)
[2017-09-20] MEDS ORDERED: ONDANSETRON 4 MG TAB.RAPDIS PO ONE (12:30)
[2017-09-20] MEDS ORDERED: LIDOCAINE 1% INJ-PF (10 MG/ML) 30 ML SDV INJ ONE (12:30)
[2017-09-20 12:43] VITALS: BP 113/74
[2017-09-20 13:22] LABS: CHLAM PCR NOT DETECTED (NOT DETECT); GON PCR NOT DETECTED (NOT DETECT)
== END 2017-09-20 12:56 | disposition home or self-care (01) ==
LOC: ER 10:18
DX: Z20.2 Contact with and (suspected) exposure to infections with a predominantly sexual mode of transmission (principal); I10 Essential (primary) hypertension; E11.9 Type 2 diabetes mellitus without complications; F17.200 Nicotine dependence, unspecified, uncomplicated; Z86.14 Personal history of Methicillin resistant Staphylococcus aureus infection
CPT/HCPCS: 99283; 96372; 87491; 87591; Q0144; S0119; J3490 ×2; J0696

== ENCOUNTER → 2018-04-21 | Outpatient (CLI) | payer MEDICAID ==
--- NOTE | 2018-04-21 18:03 | RADIOLOGY REPORT (SQ) ---
EXAM DESCRIPTION: HAND RIGHT 2 VIEWS COMPLETED DATE/TIME: 04/21/2018 5:10 pm REASON FOR STUDY: PAIN IN RT HAND M79.641 PAIN IN RIGHT HAND COMPARISON: None. EXAM PARAMETERS: NUMBER OF VIEWS: Three views. TECHNIQUE: AP, lateral and oblique radiographic images acquired of the right hand. LIMITATIONS: None. FINDINGS: MINERALIZATION: Normal. BONES: Nondisplaced fracture of the 5th middle phalanx. This is transverse in orientation. This sommers s not appear to involve the articular surfaces. JOINTS: No effusions. SOFT TISSUES: No soft tissue swelling. No foreign body. OTHER: No other significant finding. IMPRESSION: Fracture of the 5th middle phalanx. TECHNICAL DOCUMENTATION: JOB ID: [id number] [employer]- All Rights Reserved Reading location - IP/workstation name: [email or web address]
== END ==
LOC: OD 17:01
PROVIDERS: ATTEND Internal Medicine
DX: M79.641 Pain in right hand (principal); S62.602A Fracture of unspecified phalanx of right middle finger, initial encounter for closed fracture; X58.XXXA Exposure to other specified factors, initial encounter

== ENCOUNTER 2019-04-06 12:57 | Emergency (ER) | payer MEDICAID ==
[2019-04-06 13:02] VITALS: BP 121/69
--- NOTE | 2019-04-06 13:19 | ER Document Report ---
ED Medical Screen (RME) - General Chief Complaint: Shoulder Pain Stated Complaint: RIGHT SHOULDER PAIN Time Seen by Provider: 04/06/19 13:13 Primary Care Provider: GAMAL SUTHERLAND MD [Primary Care Provider] - Follow up as needed Mode of Arrival: Ambulatory Information source: Patient Notes: 58-year-old diabetic presents emergency department with right shoulder right arm pain for the past 2 to 3 days. He reports he just woke up with the pain. He denies trauma. Took a muscle relaxer that he got from his friend yesterday but it did not help the pain. No pain with palpation of the shoulder or arm. Patient reports the pain went away. The next minute patient reports pain is back. Patient is a diabetic has not been taking his insulin for the last couple weeks because he just did not care. He denies suicidal ideations. No other complaints such as fever vomiting diarrhea. No complaints of chest pain. I have greeted and performed a rapid initial assessment of this patient. A comprehensive ED assessment and evaluation of the patient, analysis of test results and completion of the medical decision making process will be conducted by additional ED providers. Dictation of this chart was performed using voice recognition software; therefore, there may be some unintended grammatical errors. TRAVEL OUTSIDE OF THE [place] IN LAST 30 DAYS: No - Related Data Allergies/Adverse Reactions: No Known Allergies Allergy (Verified 04/06/19 12:58) Past Medical History - Past Medical History Cardiac Medical History: Reports: Hx Hypertension Denies: Hx Coronary Artery Disease, Hx Heart Attack Pulmonary Medical History: Denies: Hx Asthma, Hx Bronchitis, Hx COPD, Hx Pneumonia, Hx Tuberculosis Neurological Medical History: Denies: Hx Cerebrovascular Accident, Hx Seizures Endocrine Medical History: Reports: Hx Diabetes Mellitus Type 1, Hx Diabetes Mellitus Type 2 Renal/ Medical History: Denies: Hx End Stage Renal Disease, Hx Peritoneal Dialysis, Hx Renal Insufficiency GI Medical History: Denies: Hx Diverticulitis, Hx Gastritis, Hx Gastroesophageal Reflux Disease Musculoskeltal Medical History: Denies Hx Arthritis, Denies Hx Gout Skin Medical History: Reports Hx MRSA Psychiatric Medical History: Denies: Hx Depression Past Surgical History: Reports: Hx Orthopedic Surgery - RIGHT THUMB, left leg - Immunizations Immunizations up to date: No Hx Diphtheria, Pertussis, Tetanus Vaccination: No - >5 yrs ago History of Influenza Vaccine for 04/2017 - 09/2017 Season: Yes Influenza Administration Date for 04/2017 - 09/2017 Season: 04/17/17 Physical Exam - Vital signs Vitals: Temp Pulse Resp BP Pulse Ox 97.4 F 104 H 15 121/69 97 04/06/19 13:01 04/06/19 13:01 04/06/19 13:01 04/06/19 13:01 04/06/19 13:01 Course - Vital Signs Vital signs: Temp Pulse Resp BP Pulse Ox 97.4 F 104 H 15 121/69 97 04/06/19 13:01 04/06/19 13:01 04/06/19 13:01 04/06/19 13:01 04/06/19 13:01 Doctor's Discharge - Discharge Referrals: GAMAL SUTHERLAND MD [Primary Care Provider] - Follow up as needed
[2019-04-06] MEDS ORDERED: NORMAL SALINE 1000 ML 1,000 ML IV ONE (13:21)
[2019-04-06 13:50] LABS: ABSOLUTE BASOPHILS # (AUTO) 0.1 10^3/uL (0.0-0.2); ABSOLUTE EOSINOPHILS # (AUTO) 0.1 10^3/uL (0.0-0.6); ABSOLUTE LYMPHOCYTES (AUTO) 1.9 10^3/uL (0.5-4.7); ABSOLUTE MONOCYTES (AUTO) 0.6 10^3/uL (0.1-1.4); BASOPHILS % (AUTO) 1.3 % (0-2); EOSINOPHILS % (AUTO) 1.8 % (0-6); HEMATOCRIT 43.5 % (37.9-51.0); HEMOGLOBIN 14.8 g/dL (13.5-17.0); LYMPHOCYTES % (AUTO) 32.8 % (13-45); MEAN CORPUSCULAR HEMOGLOBIN 31.4 pg (27.0-33.4); MEAN CORPUSCULAR VOLUME 92 fl (80-97); MONOCYTES % (AUTO) 10.9 % (3-13); PLATELET COUNT 250 10^3/uL (150-450); RED BLOOD COUNT 4.71 10^6/uL (4.35-5.55); SEGMENTED NEUTROPHILS % (AUTO) 53.2 % (42-78); TOTAL CELLS COUNTED % (AUTO) 100 %; WHITE BLOOD COUNT 5.7 10^3/uL (4.0-10.5)
[2019-04-06 14:01] LABS: APPEARANCE,URINE CLEAR; BILIRUBIN,URINE NEGATIVE (NEGATIVE); COLOR,URINE STRAW; GLUCOSE, URINE >=500 mg/dL (NEGATIVE); KETONES,URINE NEGATIVE (NEGATIVE); LEUKOCYTE ESTERASE,URINE NEGATIVE (NEGATIVE); NITRITE,URINE NEGATIVE (NEGATIVE); PROTEIN,URINE NEGATIVE (NEGATIVE); URINE SPECIFIC GRAVITY 1.022; UROBILINOGEN,URINE NEGATIVE mg/dL (<2.0)
[2019-04-06 14:08] LABS: ALBUMIN 4.6 g/dL (3.5-5.0); ALCOHOL < 10 mg/dL (NONE DETECTED); ALKALINE PHOSPHATASE 106 U/L (38-126); ANION GAP 10 (5-19); ASPARTATE AMINO TRANSFERASE 27 U/L (17-59); BILIRUBIN,DIRECT 0.1 mg/dL (0.0-0.4); BILIRUBIN,TOTAL 0.9 mg/dL (0.2-1.3); BLOOD UREA NITROGEN 13 mg/dL (7-20); CALCIUM 10.5 mg/dL (8.4-10.2); CARBON DIOXIDE 30 mmol/L (22-30); CHLORIDE 100 mmol/L (98-107); GLUCOSE 354 mg/dL (75-110); POTASSIUM 4.7 mmol/L (3.6-5.0)
[2019-04-06 14:17] LABS: URINE AMPHETAMINES SCREEN NEGATIVE; URINE BARBITURATES SCREEN NEGATIVE; URINE BENZODIAZEPINES SCREEN NEGATIVE; URINE COCAINE SCREEN UNCONFIRMED POSITIVE; URINE MARIJUANA (THC) SCREEN NEGATIVE; URINE METHADONE SCREEN NEGATIVE; URINE PHENCYCLIDINE SCREEN NEGATIVE
[2019-04-06] MEDS ORDERED: INSULIN REG, HUMAN 100 UNIT/ML 3 ML VIAL (PYX) IV ONE (14:35)
[2019-04-06] MEDS ORDERED: METHOCARBAMOL INJ/PF 1000 MG/10 ML SDV IV ONE (14:37)
[2019-04-06 14:39] LABS: CREATINE KINASE 174 U/L (55-170)
--- NOTE | 2019-04-06 15:10 | EKG REPORT ---
SEVERITY:- BORDERLINE ECG - SINUS TACHYCARDIA NONSPECIFIC ST-T CHANGES LATERAL LEADS. : Confirmed by: Jeff Oliver MD 06-Apr-2019 15:09:29
--- NOTE | 2019-04-06 15:37 | ER Document Report ---
Entered by WOLF LAWERNCE SCRIBE 04/06/19 1454 Acting as scribe for:WILDER NUÑEZ MD ED Extremity Problem, Upper - General Chief Complaint: Shoulder Pain Stated Complaint: RIGHT SHOULDER PAIN Time Seen by Provider: 04/06/19 13:13 Primary Care Provider: GAMAL SUTHERLAND MD [Primary Care Provider] - Follow up in 3-5 days Mode of Arrival: Ambulatory Information source: Patient Notes: Patient is a 58-year-old male who presents to the emergency department today with complaints of right shoulder pain. Patient told nursing staff that he has not been taking his diabetes medications for several weeks. The patient was asked about why he had not been taking his medications and he states that he has been "too busy drugging" going on to mention that he has been on a coke binge for weeks stating he has been "snorting, smoking, chewing, doing it every way possible" citing "losing everything recently". Patient denies any trauma to the shoulder. TRAVEL OUTSIDE OF THE [place] IN LAST 30 DAYS: No - Related Data Allergies/Adverse Reactions: No Known Allergies Allergy (Verified 04/06/19 12:58) Past Medical History - General Information source: Patient - Social History Smoking Status: Current Every Day Smoker Cigarette use (# per day): Yes Frequency of alcohol use: Heavy Drug Abuse: None Lives with: Family Family History: Reviewed & Not Pertinent, CAD, DM, Hypertension Patient has suicidal ideation: No Patient has homicidal ideation: No - Past Medical History Cardiac Medical History: Reports: Hx Hypertension Endocrine Medical History: Reports: Hx Diabetes Mellitus Type 2 Skin Medical History: Reports Hx MRSA Past Surgical History: Reports: Hx Orthopedic Surgery - RIGHT THUMB, left leg - Immunizations Immunizations up to date: No Hx Diphtheria, Pertussis, Tetanus Vaccination: No - >5 yrs ago Review of Systems - Review of Systems Constitutional: No symptoms reported EENT: No symptoms reported Cardiovascular: No symptoms reported Respiratory: No symptoms reported Gastrointestinal: No symptoms reported Genitourinary: No symptoms reported Male Genitourinary: No symptoms reported Musculoskeletal: See HPI, Joint pain - right shoulder Skin: No symptoms reported Hematologic/Lymphatic: No symptoms reported Neurological/Psychological: No symptoms reported -: Yes All other systems reviewed and negative Physical Exam - Vital signs Vitals: Temp Pulse Resp BP Pulse Ox 97.4 F 104 H 15 121/69 97 04/06/19 13:01 04/06/19 13:01 04/06/19 13:01 04/06/19 13:01 04/06/19 13:01 - Notes Notes: Physical Exam: General: Alert, appears well. HEENT: Normocephalic. Atraumatic. PERRLA. Extraocular movements intact. Oropharynx clear. Neck: Supple. Respiratory: No respiratory distress. Abdominal: Normal Inspection. No distension. Extremities: Patient is tender over the right posterior cervical muscles. The right shoulder itself is actually not tender. Scapular muscles are not tender. There is no pain with passive range of motion of the shoulder. Neurological: Normal cognition. AAOx4. Normal speech. Psychological: Normal affect. Normal Mood. Skin: Warm. Dry. Normal color. Course - Vital Signs Vital signs: Temp Pulse Resp BP Pulse Ox 97.4 F 104 H 15 121/69 97 04/06/19 13:01 04/06/19 13:01 04/06/19 13:01 04/06/19 13:01 04/06/19 13:01 - Laboratory Result Diagrams: 04/06/19 13:25 04/06/19 13:25 Laboratory results interpreted by me: 04/06/19 04/06/19 04/06/19 13:20 13:25 13:25 Glucose 354 H POC Glucose 353 H Calcium 10.5 H Creatine Kinase Urine Glucose (UA) >=500 H 04/06/19 13:25 Glucose POC Glucose Calcium Creatine Kinase 174 H Urine Glucose (UA) - EKG Interpretation by Nd EKG shows normal: Sinus rhythm, [place], Intervals, QRS Complexes, ST-T Waves Rate: Tachycardia - 102 Discharge - Discharge Clinical Impression: Noncompliance with medication regimen, Cocaine abuse Trapezius muscle strain Qualifiers: Encounter type: initial encounter Laterality: right Qualified Code(s): S46.811A - Strain of other muscles, fascia and tendons at shoulder and upper arm level, right arm, initial encounter Hyperglycemia due to type 2 diabetes mellitus Qualifiers: Diabetes mellitus halfway insulin use: with machine long goods helper use Qualified Code(s): E11.65 - Type 2 diabetes mellitus with hyperglycemia Condition: Stable Disposition: HOME, SELF-CARE Additional Instructions: Neck Muscle Strain You have strained right posterior lateral neck muscle. This often occurs with strenuous exertion, or during an injury that suddenly stretches the muscle. The seriousness of a strain varies. Some strains heal within days, others cause problems for months. X-rays cannot show a muscle strain. X-rays are taken only if symptoms suggest that a fracture could be present. The usual treatment of a muscle strain is rest and ice packs. Sometimes, a sling, splint, or crutches may be necessary to rest the muscle. The muscle can be used again once pain subsides. Severe strains require a special exercise and stretching program to prevent permanent stiffness and disability. Your doctor will advise you if this will be necessary. Call the doctor immediately if pain or swelling becomes severe, or if numbness or discoloration develop. Hyperglycemia (High Blood Sugar) You have an abnormally high blood sugar. Be sure you do not skip your diabetes medications, and that you check your blood sugars frequently. Drink plenty of fluids today. Cocaine Abuse Cocaine causes many dangerous medical problems. Problems can occur even with "usual" amounts. Cocaine affects judgement, creating a sense of invulnerability. Cocaine users often make bad decisions that seem "great" at the time. Most cocaine users eventually will be hurt by bad job performance, damaged personal relations, crime, and unsafe sexual practices. Toxic effects of cocaine can include seizures, hallucinations, delusions, high blood pressure, heart damage, or sudden . There's always the risk of a "bad batch." But heart attacks, brain hemorrhages, or cardiac arrest can occur unpredictably even with "normal" use. Injection of cocaine is risky for abscesses, endocarditis (heart infection), pneumonia, and AIDS. Withdrawal from cocaine often causes anxiety and drug cravings. Some users become paranoid and psychotic. Many treatment programs are available, but you must make the decision to quit. Medication can be prescribed to control the symptoms of cocaine toxicity (beta blockers or benzodiazepines). Withdrawal symptoms may require tranquilizers. Take the muscle relaxer as prescribed for the muscle pain and spasm in your right neck and shoulder. Take ibuprofen or Aleve for pain relief. Use the sling to help support the weight of your shoulder to allow the muscles to relax. Be sure you take your diabetes medications as they are prescribed and check your sugars frequently. Drink plenty of fluids. Stop using cocaine or any other illicit substance. Follow-up with Dr. Sutherland Tuesday or Tuesday if not feeling better. RETURN TO THE EMERGENCY ROOM IF ANY NEW OR WORSENING SYMPTOMS. Prescriptions: Methocarbamol [Robaxin 500 mg Tablet] 500 mg PO QID #20 tablet Referrals: GAMAL SUTHERLAND MD [Primary Care Provider] - Follow up in 3-5 days Scribe Attestation: 04/06/19 16:09 I personally performed the services described in the documentation, reviewed and edited the documentation which was dictated to the scribe in my presence, and it accurately records my words and actions. I personally performed the services described in the documentation, reviewed and edited the documentation which was dictated to the scribe in my presence, and it accurately records my words and actions.
== END 2019-04-06 16:55 | disposition home or self-care (01) ==
LOC: ER 12:57
DX: S46.811A Strain of other muscles, fascia and tendons at shoulder and upper arm level, right arm, initial encounter (principal); F14.10 Cocaine abuse, uncomplicated; E11.65 Type 2 diabetes mellitus with hyperglycemia; M25.511 Pain in right shoulder; R00.0 Tachycardia, unspecified; Z91.14 Patient's other noncompliance with medication regimen; X58.XXXA Exposure to other specified factors, initial encounter; Z79.84 Long term (current) use of oral hypoglycemic drugs; F17.210 Nicotine dependence, cigarettes, uncomplicated; I10 Essential (primary) hypertension
CPT/HCPCS: 93005; 99283; 36415; 82962; 80307 ×2; 82550; 85025; 80053; 81001; 84484; 93010; J2800; J1815; J7030

== ENCOUNTER 2019-04-06 21:58 | Emergency (ER) | payer MEDICAID ==
--- NOTE | 2019-04-06 22:55 | ER Document Report ---
ED Medical Screen (RME) - General Chief Complaint: High Blood Sugar Stated Complaint: HIGH BLOOD SUGAR Primary Care Provider: GAMAL SUTHERLAND MD [Primary Care Provider] - Follow up as needed Mode of Arrival: Ambulatory Information source: Patient Notes: Patient presents to the emergency department with reports of high blood sugar. Reports he has not taken his insulin for over a month. Patient was binging doing cocaine. He was evaluated earlier in this emergency department with right shoulder pain. I have greeted and performed a rapid initial assessment of this patient. A comprehensive ED assessment and evaluation of the patient, analysis of test results and completion of the medical decision making process will be conducted by additional ED providers. Dictation of this chart was performed using voice recognition software; therefore, there may be some unintended grammatical errors. TRAVEL OUTSIDE OF THE [place] IN LAST 30 DAYS: No - Related Data Allergies/Adverse Reactions: No Known Allergies Allergy (Verified 04/06/19 12:58) Past Medical History - Past Medical History Cardiac Medical History: Reports: Hx Hypertension Denies: Hx Coronary Artery Disease, Hx Heart Attack Pulmonary Medical History: Denies: Hx Asthma, Hx Bronchitis, Hx COPD, Hx Pneumonia, Hx Tuberculosis Neurological Medical History: Denies: Hx Cerebrovascular Accident, Hx Seizures Endocrine Medical History: Reports: Hx Diabetes Mellitus Type 1, Hx Diabetes Mellitus Type 2 Renal/ Medical History: Denies: Hx End Stage Renal Disease, Hx Peritoneal Dialysis, Hx Renal Insufficiency GI Medical History: Denies: Hx Diverticulitis, Hx Gastritis, Hx Gastroesophageal Reflux Disease Musculoskeltal Medical History: Denies Hx Arthritis, Denies Hx Gout Skin Medical History: Reports Hx MRSA Psychiatric Medical History: Denies: Hx Depression Past Surgical History: Reports: Hx Orthopedic Surgery - RIGHT THUMB, left leg - Immunizations Immunizations up to date: No Hx Diphtheria, Pertussis, Tetanus Vaccination: No - >5 yrs ago History of Influenza Vaccine for 04/2017 - 09/2017 Season: Yes Influenza Administration Date for 04/2017 - 09/2017 Season: 04/17/17 Physical Exam - Vital signs Vitals: Temp Pulse Resp BP Pulse Ox 97.3 F 92 17 142/76 H 100 04/06/19 22:05 04/06/19 22:05 04/06/19 22:05 04/06/19 22:05 04/06/19 22:05 Course - Vital Signs Vital signs: Temp Pulse Resp BP Pulse Ox 97.3 F 92 17 142/76 H 100 04/06/19 22:05 04/06/19 22:05 04/06/19 22:05 04/06/19 22:05 04/06/19 22:05 Doctor's Discharge - Discharge Referrals: GAMAL SUTHERLAND MD [Primary Care Provider] - Follow up as needed
[2019-04-06] MEDS ORDERED: NORMAL SALINE 1000 ML 1,000 ML IV ONE (23:03)
[2019-04-06 23:18] LABS: APPEARANCE,URINE CLEAR; BILIRUBIN,URINE NEGATIVE (NEGATIVE); COLOR,URINE STRAW; GLUCOSE, URINE >=500 mg/dL (NEGATIVE); KETONES,URINE NEGATIVE (NEGATIVE); LEUKOCYTE ESTERASE,URINE NEGATIVE (NEGATIVE); NITRITE,URINE NEGATIVE (NEGATIVE); PROTEIN,URINE NEGATIVE (NEGATIVE); URINE SPECIFIC GRAVITY 1.023; UROBILINOGEN,URINE NEGATIVE mg/dL (<2.0)
[2019-04-07] LABS: ABSOLUTE EOSINOPHILS # (AUTO) 0.1 10^3/uL (0.0-0.6); ABSOLUTE LYMPHOCYTES (AUTO) 1.7 10^3/uL (0.5-4.7); ABSOLUTE MONOCYTES (AUTO) 0.5 10^3/uL (0.1-1.4); BASOPHILS % (AUTO) 0.4 % (0-2); EOSINOPHILS % (AUTO) 1.4 % (0-6); HEMATOCRIT 40.2 % (37.9-51.0); HEMOGLOBIN 13.3 g/dL (13.5-17.0); LYMPHOCYTES % (AUTO) 31.6 % (13-45); MEAN CORPUSCULAR HEMOGLOBIN 31.1 pg (27.0-33.4); MEAN CORPUSCULAR HGB CONC 33.1 g/dL (32.0-36.0); MEAN CORPUSCULAR VOLUME 94 fl (80-97); MONOCYTES % (AUTO) 9.8 % (3-13); PLATELET COUNT 218 10^3/uL (150-450); RED BLOOD COUNT 4.28 10^6/uL (4.35-5.55); RED CELL DISTRIBUTION WIDTH 13.5 % (11.5-14.0); SEGMENTED NEUTROPHILS % (AUTO) 56.8 % (42-78); TOTAL CELLS COUNTED % (AUTO) 100 %; WHITE BLOOD COUNT 5.3 10^3/uL (4.0-10.5)
[2019-04-07 00:03] LABS: VENOUS BLOOD BASE EXCESS 2.3 mmol/L; VENOUS BLOOD HCO3 28.5 mmol/L (20-32); VENOUS BLOOD PCO2 50.6 mmHg (35-63); VENOUS BLOOD PH 7.37 (7.30-7.42)
[2019-04-07 00:14] LABS: ALBUMIN 4.1 g/dL (3.5-5.0); ALKALINE PHOSPHATASE 96 U/L (38-126); ANION GAP 9 (5-19); ASPARTATE AMINO TRANSFERASE 30 U/L (17-59); BILIRUBIN,DIRECT 0.2 mg/dL (0.0-0.4); BILIRUBIN,TOTAL 0.3 mg/dL (0.2-1.3); BLOOD UREA NITROGEN 15 mg/dL (7-20); CALCIUM 9.8 mg/dL (8.4-10.2); CARBON DIOXIDE 30 mmol/L (22-30); CHLORIDE 95 mmol/L (98-107); POTASSIUM 4.7 mmol/L (3.6-5.0); TOTAL PROTEIN 6.8 g/dL (6.3-8.2)
[2019-04-07 00:27] LABS: GLUCOSE 631 mg/dL (75-110)
[2019-04-07] MEDS ORDERED: INSULIN REG, HUMAN 100 UNIT/ML 3 ML VIAL (PYX) SUBCUT ONE ×2 (00:34→01:35)
[2019-04-07] MEDS ORDERED: NORMAL SALINE 1000 ML 1,000 ML IV ONE (00:34)
[2019-04-07 00:49] LABS: URINE AMPHETAMINES SCREEN NEGATIVE; URINE BARBITURATES SCREEN NEGATIVE; URINE BENZODIAZEPINES SCREEN NEGATIVE; URINE COCAINE SCREEN UNCONFIRMED POSITIVE; URINE MARIJUANA (THC) SCREEN NEGATIVE; URINE METHADONE SCREEN NEGATIVE; URINE PHENCYCLIDINE SCREEN NEGATIVE
[2019-04-07] MEDS ORDERED: ACETAMINOPHEN 325 MG TABLET PO ONE ×2 (01:36→08:29)
[2019-04-07] MEDS ORDERED: IBUPROFEN 800 MG TABLET PO ONE (01:36)
[2019-04-07] MEDS ORDERED: INSULIN GLARGINE,HUM.REC.ANLOG 1,000 UNIT/10 ML VIAL (PYX) SUBCUT PRN (01:42)
[2019-04-07] MEDS ORDERED: INSULIN GLARGINE,HUM.REC.ANLOG 1,000 UNIT/10 ML VIAL SUBCUT SCH ×2 (01:45→22:00)
[2019-04-07] MEDS ORDERED: INSULIN GLARGINE,HUM.REC.ANLOG 1,000 UNIT/10 ML VIAL SUBCUT ONE (02:00)
--- NOTE | 2019-04-07 02:22 | RADIOLOGY REPORT (SQ) ---
EXAM DESCRIPTION: Right shoulder RadLex: XR SHOULDER 2 OR MORE VIEWS Views: 3 CLINICAL HISTORY: 58 years Male, right shoulder pain COMPARISON: None. FINDINGS: Negative for acute fracture, dislocation, or radiopaque foreign body. IMPRESSION: 1. No acute findings.
--- NOTE | 2019-04-07 02:25 | ER Document Report ---
ED General - General Chief Complaint: High Blood Sugar Stated Complaint: HIGH BLOOD SUGAR Time Seen by Provider: 04/06/19 23:02 Primary Care Provider: GAMAL SUTHERLAND MD [Primary Care Provider] - Follow up as needed Mode of Arrival: Ambulatory Notes: 58-year-old male sent to the emergency department by [facility] due to elevated blood sugar. Patient checked into [facility] for help with depression and crack cocaine use and detox. While he was there his glucometer read high so he was sent over with a note that read "per Dr. Butler please assist with developing a plan to manage patient's diabetes before sending him back to [facility]. Thanks." Patient is a known diabetic who is insulin-dependent and states that he has been off of his insulin for a while. Patient states that he did take a little bit today but has not been taking it per usual prescription. States that he follows with Dr. Sutherland on a regular basis and if he wanted to fill his insulin he could by calling Dr. Sutherland at any point that he would prescribe it again. Patient states that he supposed to be taking Lantus 20 units at night and he is also supposed to be using NovoLog sliding scale. Patient's biggest concern today is that he is having pain in his right shoulder that has been going on for the past 3 days, is sharp and stabbing, worsens with certain movements denies any injury. Patient states he does not think he has any problem with crack cocaine. Mother who is sitting at the bedside disagrees and states she thinks it is a large problem. Patient also states that he is fee ling depressed and that he is suicidal. States that he thinks he might kill himself by just simply stopping taking his insulin. Patient states this is why he checked into [facility] so he can get help with his stress which he thinks would make him feel better. TRAVEL OUTSIDE OF THE [place] IN LAST 30 DAYS: No - Related Data Allergies/Adverse Reactions: No Known Allergies Allergy (Verified 04/06/19 12:58) Past Medical History - General Information source: Patient - Social History Smoking Status: Current Every Day Smoker Frequency of alcohol use: None Drug Abuse: Cocaine Family History: Reviewed & Not Pertinent, CAD, DM, Hypertension Patient has suicidal ideation: No Patient has homicidal ideation: No - Past Medical History Cardiac Medical History: Reports: Hx Hypertension Denies: Hx Coronary Artery Disease, Hx Heart Attack Pulmonary Medical History: Denies: Hx Asthma, Hx Bronchitis, Hx COPD, Hx Pneumonia, Hx Tuberculosis Neurological Medical History: Denies: Hx Cerebrovascular Accident, Hx Seizures Endocrine Medical History: Reports: Hx Diabetes Mellitus Type 1, Hx Diabetes Mellitus Type 2 Renal/ Medical History: Denies: Hx End Stage Renal Disease, Hx Peritoneal Dialysis, Hx Renal Insufficiency GI Medical History: Denies: Hx Diverticulitis, Hx Gastritis, Hx Gastroesophageal Reflux Disease Musculoskeletal Medical History: Denies Hx Arthritis, Denies Hx Gout Skin Medical History: Reports Hx MRSA Psychiatric Medical History: Denies: Hx Depression Past Surgical History: Reports: Hx Orthopedic Surgery - RIGHT THUMB, left leg - Immunizations Immunizations up to date: No Hx Diphtheria, Pertussis, Tetanus Vaccination: No - >5 yrs ago Review of Systems - Review of Systems Constitutional: No symptoms reported Musculoskeletal: See HPI Hematologic/Lymphatic: See HPI, Other - Elevated blood sugar. Neurological/Psychological: See HPI -: Yes All other systems reviewed and negative Physical Exam - Vital signs Vitals: Temp Pulse Resp BP Pulse Ox 97.3 F 92 17 142/76 H 100 04/06/19 22:05 04/06/19 22:05 04/06/19 22:05 04/06/19 22:05 04/06/19 22:05 Interpretation: Hypertensive - Notes Notes: GENERAL: Alert, interacts well. No acute distress. HEAD: Normocephalic, atraumatic EYES: Pupils equal, round and reactive to light, extraocular movements intact. ENT: Oral mucosa moist, tongue midline. NECK: Full range of motion, supple, trachea midline. LUNGS: Clear to auscultation bilaterally, no wheezes, rales or rhonchi, no respiratory distress. HEART: Regular rate and rhythm, no murmurs, gallops, rubs. ABDOMEN: Soft, nontender, nondistended, bowel sounds present in all 4 quadrants. EXTREMITIES: Moves all 4 extremities spontaneously, no edema, radial and dorsalis pedis pulses 2/4 bilaterally. No cyanosis. Full range of motion, intermittently complains of pain in the right shoulder throughout the examination. I cannot elicit the pain with specific movements, right shoulder is not tender to palpation, it is not swollen, it is not red. Patient does point to a small excoriation just proximal to the right elbow and states he thinks it is a spider bite. There is again no erythema, no lymphangitic streaking, it is minimally tender to palpation, there is no fluctuance and there is no drainage. NEUROLOGICAL: Alert and oriented x3, normal speech, biceps and patellar DTRs 2+ bilaterally. PSYCH: Normal mood, normal affect. SKIN: Warm, Dry, normal turgor. Course - Re-evaluation Re-evalutation: 04/07/19 02:28 CBC shows mild anemia with hemoglobin 13.3, venous blood gas unremarkable, CMP shows pseudohyponatremia with a sodium 134.1, glucose elevated at 631, after liter fluid at 7477, patient was given 2 units of regular insulin and it came down to 276, it is normalizing nicely. Urinalysis shows 500 glucose but no ketones. Urine drug screen shows cocaine. Alcohol level is less than 10. Despite the fact that he states he drinks at least a 12 pack a day patient has no signs of withdrawal at this time. Patient will continue to be monitored. Patient will be kept here overnight, behavioral health will be consulted in the morning to make sure that we have a plan between our hospital in [place] [facility] to make sure that this patient can be returned to [facility] for further rehab without simply being returned back here to get his medications refilled or anything similar to that. We will reconcile his medications with his pharmacy, [facility] in the morning. In the meantime patient is placed on sliding scale insulin and Lantus. No evidence of acute harm from his hyperglycemia. Does not meet involuntary commitment criteria by my opinion at this time. Patient has passive suicidal ideations. 04/07/19 02:29 Shoulder x-ray was ordered and is negative. Patient's pain will be treated with Advil and Tylenol. 04/07/19 02:55 Of note patient was seen here earlier this evening, diagnosed with cervical muscle strain which is likely and discharged after having been thoroughly examined for the shoulder pain. - Vital Signs Vital signs: Temp Pulse Resp BP Pulse Ox 97.3 F 92 17 142/76 H 100 04/06/19 22:05 04/06/19 22:05 04/06/19 22:05 04/06/19 22:05 04/06/19 22:05 - Laboratory Result Diagrams: 04/06/19 23:46 04/06/19 23:46 Laboratory results interpreted by me: 04/06/19 04/06/19 04/06/19 23:03 23:46 23:46 RBC 4.28 L Hgb 13.3 L Sodium 134.1 L Chloride 95 L Glucose 631 H* POC Glucose Urine Glucose (UA) >=500 H 04/07/19 04/07/19 00:19 02:02 RBC Hgb Sodium Chloride Glucose POC Glucose 477 H* 276 H Urine Glucose (UA) Discharge - Discharge Clinical Impression: Cocaine abuse, Passive suicidal ideations, Noncompliance with medication regimen Hyperglycemia due to type 2 diabetes mellitus Qualifiers: Diabetes mellitus fci insulin use: with rat exterminator use Qualified Code(s): E11.65 - Type 2 diabetes mellitus with hyperglycemia; Z79.4 - long-term ( current) use of insulin Right shoulder pain Qualifiers: Chronicity: acute Qualified Code(s): M25.511 - Pain in right shoulder Condition: Stable Disposition: PSYCH HOSP/UNIT Referrals: GAMAL SUTHERLAND MD [Primary Care Provider] - Follow up as needed
--- NOTE | 2019-04-07 10:04 | ER Document Report ---
Doctor's Note Notes: 04/07/19 10:03 Rounds: Chart reviewed and patient interviewed. Patient was referred here from detox where he had attempted to go for his alcohol abuse as well as cocaine abuse. His blood sugar was very high and he is a known insulin-dependent diabetic so he was sent here for management of his blood sugar. Patient says he has prescriptions called in, but does not have any of them filled for his insulin. He has no complaints at this time. Blood sugar was 631 initially and now is down to 190. Patient's urine drug screen is positive for cocaine. Complains of chronic right shoulder pain. Vital signs are all normal. Patient appears to be medically stable for transfer or discharge. Michelle Rodriguez MD
[2019-04-07] MEDS ORDERED: IBUPROFEN 400 MG TABLET PO ONE (11:46)
[2019-04-07 11:59] VITALS: BP 161/80
== END 2019-04-07 12:02 | disposition home or self-care (01) ==
LOC: ER 21:58
DX: R45.851 Suicidal ideations (principal); E11.65 Type 2 diabetes mellitus with hyperglycemia; Z91.14 Patient's other noncompliance with medication regimen; F14.10 Cocaine abuse, uncomplicated; M25.511 Pain in right shoulder; Z79.4 Long term (current) use of insulin; F17.200 Nicotine dependence, unspecified, uncomplicated; I10 Essential (primary) hypertension
CPT/HCPCS: 99285; 96360; 96361; 36415; 82962; 80307 ×2; 87070; 81001; 82803; 73030; J3490 ×3; J1815 ×2; J7030 ×2

== ENCOUNTER 2019-04-10 10:40 | Emergency (ER) | payer MEDICAID ==
--- NOTE | 2019-04-10 11:08 | ER Document Report ---
ED Medical Screen (RME) - General Chief Complaint: High Blood Sugar Stated Complaint: BLOOD PRESSURE Time Seen by Provider: 04/10/19 11:06 Primary Care Provider: GAMAL SUTHERLAND MD [Primary Care Provider] - Follow up as needed Mode of Arrival: Ambulatory Information source: Patient Notes: 58-year-old male presents emergency department reporting that Dr. Sutherland told him to come the emergency department because his sugar was high. Reports he has not checked his sugar. Did his insulin last night. Accu-Chek this morning is 223. I have greeted and performed a rapid initial assessment of this patient. A comprehensive ED assessment and evaluation of the patient, analysis of test results and completion of the medical decision making process will be conducted by additional ED providers. Dictation of this chart was performed using voice recognition software; therefore, there may be some unintended grammatical errors. TRAVEL OUTSIDE OF THE [place] IN LAST 30 DAYS: No - Related Data Allergies/Adverse Reactions: No Known Allergies Allergy (Verified 04/10/19 11:00) Past Medical History - Social History Chew tobacco use (# tins/day): No Frequency of alcohol use: None Drug Abuse: None - Past Medical History Cardiac Medical History: Reports: Hx Hypertension Denies: Hx Coronary Artery Disease, Hx Heart Attack Pulmonary Medical History: Denies: Hx Asthma, Hx Bronchitis, Hx COPD, Hx Pneumonia, Hx Tuberculosis Neurological Medical History: Denies: Hx Cerebrovascular Accident, Hx Seizures Endocrine Medical History: Reports: Hx Diabetes Mellitus Type 1, Hx Diabetes Mellitus Type 2 Renal/ Medical History: Denies: Hx End Stage Renal Disease, Hx Peritoneal Dialysis, Hx Renal Insufficiency GI Medical History: Denies: Hx Diverticulitis, Hx Gastritis, Hx Gastroesophageal Reflux Disease Musculoskeltal Medical History: Denies Hx Arthritis, Denies Hx Gout Skin Medical History: Reports Hx MRSA Psychiatric Medical History: Denies: Hx Depression Past Surgical History: Reports: Hx Orthopedic Surgery - RIGHT THUMB, left leg - Immunizations Immunizations up to date: No Hx Diphtheria, Pertussis, Tetanus Vaccination: No - >5 yrs ago History of Influenza Vaccine for 04/2017 - 09/2017 Season: Yes Influenza Administration Date for 04/2017 - 09/2017 Season: 04/17/17 Physical Exam - Vital signs Vitals: Temp Pulse Resp BP Pulse Ox 98.2 F 85 16 122/78 98 04/10/19 10:52 04/10/19 10:52 04/10/19 10:52 04/10/19 10:52 04/10/19 10:52 Course - Vital Signs Vital signs: Temp Pulse Resp BP Pulse Ox 98.2 F 85 16 122/78 98 04/10/19 10:52 04/10/19 10:52 04/10/19 10:52 04/10/19 10:52 04/10/19 10:52 Doctor's Discharge - Discharge Referrals: GAMAL SUTHERLAND MD [Primary Care Provider] - Follow up as needed
[2019-04-10 12:01] LABS: ABSOLUTE BASOPHILS # (AUTO) 0.1 10^3/uL (0.0-0.2); ABSOLUTE EOSINOPHILS # (AUTO) 0.1 10^3/uL (0.0-0.6); ABSOLUTE LYMPHOCYTES (AUTO) 2.3 10^3/uL (0.5-4.7); ABSOLUTE MONOCYTES (AUTO) 0.8 10^3/uL (0.1-1.4); BASOPHILS % (AUTO) 1.3 % (0-2); EOSINOPHILS % (AUTO) 1.6 % (0-6); HEMATOCRIT 39.8 % (37.9-51.0); HEMOGLOBIN 13.5 g/dL (13.5-17.0); LYMPHOCYTES % (AUTO) 36.4 % (13-45); MEAN CORPUSCULAR VOLUME 91 fl (80-97); MONOCYTES % (AUTO) 12.7 % (3-13); PLATELET COUNT 226 10^3/uL (150-450); RED BLOOD COUNT 4.36 10^6/uL (4.35-5.55); RED CELL DISTRIBUTION WIDTH 12.9 % (11.5-14.0); TOTAL CELLS COUNTED % (AUTO) 100 %; WHITE BLOOD COUNT 6.3 10^3/uL (4.0-10.5)
[2019-04-10 12:04] LABS: APPEARANCE,URINE CLEAR; BILIRUBIN,URINE NEGATIVE (NEGATIVE); COLOR,URINE YELLOW; GLUCOSE, URINE >=500 mg/dL (NEGATIVE); KETONES,URINE NEGATIVE (NEGATIVE); LEUKOCYTE ESTERASE,URINE NEGATIVE (NEGATIVE); NITRITE,URINE NEGATIVE (NEGATIVE); PROTEIN,URINE 30 mg/dL (NEGATIVE); URINE SPECIFIC GRAVITY 1.026; UROBILINOGEN,URINE NEGATIVE mg/dL (<2.0)
[2019-04-10 12:09] LABS: VENOUS BLOOD BASE EXCESS 2.4 mmol/L; VENOUS BLOOD PCO2 56.7 mmHg (35-63); VENOUS BLOOD PH 7.34 (7.30-7.42)
[2019-04-10 12:19] LABS: ALBUMIN 4.2 g/dL (3.5-5.0); ALKALINE PHOSPHATASE 80 U/L (38-126); ANION GAP 8 (5-19); ASPARTATE AMINO TRANSFERASE 33 U/L (17-59); BILIRUBIN,DIRECT 0.1 mg/dL (0.0-0.4); BILIRUBIN,TOTAL 0.4 mg/dL (0.2-1.3); BLOOD UREA NITROGEN 13 mg/dL (7-20); CALCIUM 10.1 mg/dL (8.4-10.2); CARBON DIOXIDE 31 mmol/L (22-30); CHLORIDE 99 mmol/L (98-107); GLUCOSE 230 mg/dL (75-110); TOTAL PROTEIN 7.3 g/dL (6.3-8.2)
[2019-04-10 12:22] LABS: URINE AMPHETAMINES SCREEN NEGATIVE; URINE BARBITURATES SCREEN NEGATIVE; URINE BENZODIAZEPINES SCREEN NEGATIVE; URINE COCAINE SCREEN UNCONFIRMED POSITIVE; URINE METHADONE SCREEN NEGATIVE; URINE PHENCYCLIDINE SCREEN NEGATIVE
[2019-04-10 12:32] LABS: URINE MARIJUANA (THC) SCREEN NEGATIVE
--- NOTE | 2019-04-10 15:21 | ER Document Report ---
ED General - General Chief Complaint: High Blood Sugar Stated Complaint: BLOOD PRESSURE Time Seen by Provider: 04/10/19 11:06 Primary Care Provider: GAMAL SUTHERLAND MD [Primary Care Provider] - Follow up as needed Mode of Arrival: Ambulatory TRAVEL OUTSIDE OF THE [place] IN LAST 30 DAYS: No - HPI Notes: Patient is a 58-year-old insulin-dependent diabetic male with cocaine abuse who presents for evaluation after his primary care office noted yesterday that he had a blood glucose of 511 in their office by blood draw. Patient was notified this morning to come here for evaluation. Patient states that he was using his insulin since last night as directed. Accu-Chek this morning was in the 200s. He is otherwise able to eat and drink without difficulty. He is urinating normally. Denies drug allergies. Patient states that he does continue to have right shoulder pain that has been evaluated by his family provider and here in the emergency department previously. No known injury. Denies any headache, fever, changes in vision/speech/mentation/hearing, URI, sore throat, chest pain, palpitations, syncope, cough, shortness of breath, wheeze, dyspnea, abdominal pain, nausea/vomiting/diarrhea, urinary retention, dysuria, hematuria, loss of c ontrol of bowel or bladder, numbness/tingling, saddle anesthesia, muscle paralysis/weakness, or rash. - Related Data Allergies/Adverse Reactions: No Known Allergies Allergy (Verified 04/10/19 11:00) Past Medical History - General Information source: Patient - Social History Smoking Status: Current Every Day Smoker Chew tobacco use (# tins/day): No Frequency of alcohol use: None Drug Abuse: None Family History: Reviewed & Not Pertinent, CAD, DM, Hypertension Patient has suicidal ideation: No Patient has homicidal ideation: No - Past Medical History Cardiac Medical History: Reports: Hx Hypertension Denies: Hx Coronary Artery Disease, Hx Heart Attack Pulmonary Medical History: Denies: Hx Asthma, Hx Bronchitis, Hx COPD, Hx Pneumonia, Hx Tuberculosis Neurological Medical History: Denies: Hx Cerebrovascular Accident, Hx Seizures Endocrine Medical History: Reports: Hx Diabetes Mellitus Type 1, Hx Diabetes Mellitus Type 2 Renal/ Medical History: Denies: Hx End Stage Renal Disease, Hx Peritoneal Dialysis, Hx Renal Insufficiency GI Medical History: Denies: Hx Diverticulitis, Hx Gastritis, Hx Gastroesophageal Reflux Disease Musculoskeletal Medical History: Denies Hx Arthritis, Denies Hx Gout Skin Medical History: Reports Hx MRSA Psychiatric Medical History: Denies: Hx Depression Past Surgical History: Reports: Hx Orthopedic Surgery - RIGHT THUMB, left leg - Immunizations Immunizations up to date: No Hx Diphtheria, Pertussis, Tetanus Vaccination: No - >5 yrs ago Review of Systems - Review of Systems -: Yes All other systems reviewed and negative Physical Exam - Vital signs Vitals: Temp Pulse Resp BP Pulse Ox 98.2 F 85 16 122/78 98 04/10/19 10:52 04/10/19 10:52 04/10/19 10:52 04/10/19 10:52 04/10/19 10:52 - Notes Notes: PHYSICAL EXAMINATION: GENERAL: Well-appearing, well-nourished and in no acute distress. A&Ox4. Answers questions appropriately. HEAD: Atraumatic, normocephalic. Non-tender. EYES: Pupils equal round and reactive to light, extraocular movements intact, sclera anicteric, conjunctiva are normal. No nystagmus. ENT: Nares patent and without discharge. oropharynx clear without exudates. No tonsilar hypertrophy or erythema. Moist mucous membranes. NECK: Normal range of motion, supple without lymphadenopathy. No rigidity/meningismus. No midline tenderness. + tenderness rt trapezius muscle with mild spasm noted that reproduces symptoms described. N/V intact distal. Spurling negative. LUNGS: Breath sounds clear to auscultation bilaterally and equal. No wheezes rales or rhonchi. HEART: Regular rate and rhythm without murmurs, rubs, gallops. ABDOMEN: Soft, nontender, nondistended abdomen. No guarding, no rebound. Normal bowel sounds present. No CVA tenderness bilaterally. Musculoskeletal: Ext b/l: FROM to passive/active. Strength 5+/5. No deficits noted. No bony tenderness of extremities. Extremities: No cyanosis, clubbing, or edema b/l. Peripheral pulses 2+. Capillary refill less than 2 seconds. NEUROLOGICAL: GCS 15. Cranial nerves grossly intact. Normal speech, normal gait. Normal sensory, motor exams. Reflexes 2+ b/l. PSYCH: irritable SKIN: Warm, Dry, normal turgor, no rashes or lesions noted. Course - Re-evaluation Re-evalutation: 04/10/19 15:24 Pt was adamant I speak with Dr. Sutherland. I did call and speak with him who states that he sent him here for fluids and discharge home, not to be admitted like the patient thought he was going to be. He can f/u in the office otherwise. Patient is an afebrile, well-hydrated, 58-year-old male who presents with elevated glucose without evidence of DKA or HHS and rt trapezius muscle spasm. Vitals are acceptable without significant tachycardia, tachypnea, or hypoxia. PE is otherwise unremarkable for any focal neurological deficits. Patient's abdomen is soft and nontender. GCS 15, cranial nerves grossly intact. No further work-up warranted at this time. No evidence for fracture, dislocation, septic joint. Labs are unremarkable with a blood glucose of 230. Patient is nontoxic-appearing and is able to tolerate p.o. without difficulty. No further work-up warranted at this time. Patient was given Toradol IV. Low suspicion/risk for acute appendicitis, bowel obstruction, acute cholecystitis, perforated diverticulitis, incarcerated hernia, pancreatitis, perforated ulcer, peritonitis, sepsis, testicular torsion, or other systemic emergent condition at this time. Patient is aware that his condition can change from initial p resentation and he needs to monitor symptoms closely and seek medical attention if any acute changes. Conservative measures otherwise for symptoms. Recheck with PCM in 2-3 days. Return to the ED with any worsening/concerning symptoms otherwise as reviewed in discharge. Patient is in agreement. - Vital Signs Vital signs: Temp Pulse Resp BP Pulse Ox 98.2 F 85 16 122/78 98 04/10/19 10:52 04/10/19 10:52 04/10/19 10:52 04/10/19 10:52 04/10/19 10:52 - Laboratory Result Diagrams: 04/10/19 11:28 04/10/19 11:28 Laboratory results interpreted by me: 04/10/19 04/10/19 11:28 11:28 Carbon Dioxide 31 H Glucose 230 H Urine Protein 30 H Urine Glucose (UA) >=500 H Discharge - Discharge Clinical Impression: Blood glucose elevated, Trapezius muscle spasm Condition: Stable Disposition: HOME, SELF-CARE Instructions: Muscle Relaxers ([facility]) Additional Instructions: Rest, Ice, Compression, Elevation Monitor your blood glucose level at least twice daily and keep a log Insulin as directed Tylenol/ibuprofen as needed Light stretches daily Strength exercises as able Moist heat and massage may help F/u with your PCP in 2-3 days for a recheck Consider consult(s) with Orthopedics/physical therapy for ongoing/worsening symptoms Return to the ED with any worsening symptoms and/or development of fever, headache, chest pain, palpitations, syncope, shortness of breath, trouble breathing, abdominal pain, n/v/d, muscle weakness/paralysis, numbness/tingling, swelling, redness, or other worsening symptoms that are concerning to you. Prescriptions: Methocarbamol [Robaxin 750 mg Tablet] 750 mg PO TID PRN #10 tablet PRN Reason: Forms: Smoking Cessation Education Referrals: GAMAL SUTHERLAND MD [Primary Care Provider] - 04/12/19
[2019-04-10] MEDS ORDERED: KETOROLAC TROMETHAMINE INJ/PF 30 MG/1 ML SDV IV ONE (15:27)
[2019-04-10] MEDS ORDERED: KETOROLAC TROMETHAMINE INJ/PF 30 MG/1 ML SDV IM ONE (15:45)
[2019-04-10 16:21] VITALS: BP 126/77
== END 2019-04-10 16:13 | disposition home or self-care (01) ==
LOC: ER 10:40
DX: E11.65 Type 2 diabetes mellitus with hyperglycemia (principal); Z79.4 Long term (current) use of insulin; M62.830 Muscle spasm of back; M25.511 Pain in right shoulder; F17.200 Nicotine dependence, unspecified, uncomplicated; I10 Essential (primary) hypertension
CPT/HCPCS: 99283; 96372; 36415; 82962; 85025; 80053; 81001; 80307; 82803; J1885

== ENCOUNTER → 2019-07-13 | Outpatient (CLI) | payer OTHER ==
--- NOTE | 2019-07-14 21:51 | RADIOLOGY REPORT (SQ) ---
EXAM DESCRIPTION: MRI CERVICAL SPINE WITHOUT COMPLETED DATE/TIME: 07/13/2019 1:33 pm REASON FOR STUDY: ARM PAIN AND NUMBNESS COMPARISON: None. TECHNIQUE: Sagittal and Axial imaging includes T1, T2, STIR and gradient echo sequences. LIMITATIONS: There is severely limiting motion artifact on all sequences. Limited diagnostic yield. This is despite numerous repeat scans. FINDINGS: ALIGNMENT: Normal. VERTEBRAE: Intact. BONE MARROW: Mild multilevel in plate marrow edema related to disc disease. DISCS: Multilevel disc disease. HARDWARE: None in the spine. CORD AND BASE OF BRAIN: Skullbase structures appear to be intact. No gross abnormal cord signal allo wing for limiting motion. SOFT TISSUES: No soft tissue masses. C1-C2: No significant spinal stenosis. C2-C3: No significant spinal stenosis or exit foraminal stenosis. C3-C4: Disc osteophyte complex contacts the ventral aspect of the cord. Posterior ligament thickenin g contacts the cord. Moderate -marked right and mild -moderate left foraminal stenosis. C4-C5: Disc osteophyte complex contacts the cord. Posterior ligament thickening contacts the cord. Marked bilateral foraminal stenosis. C5-C6: Disc osteophyte complex contacts the cord. Posterior ligament thickening contacts the cord. Moderate bilateral foraminal stenosis. C6-C7: Disc osteophyte complex without mass effect on the cord. Marked bilateral foraminal stenosis. C7-T1: No significant spinal stenosis or exit foraminal stenosis. UPPER THORACIC: Incompletely imaged. No significant spinal stenosis or exit foraminal stenosis. OTHER: At the levels of maximal disc disease, the cord looks mildly flattened. IMPRESSION: 1. Severely limited study due to motion. 2. Of the interpretable sequences, there appears to be mild cord impingement at C3-4, C4-5, C5-6. Lo ss of the CSF spaces both anterior and posterior to the cord with minimal cord flattening at these le vels. No associated gross myelopathic cord signal detected. Call report tasked to the [facility] team at the time of interpretation. TECHNICAL DOCUMENTATION: JOB ID: [id number] [employer]- All Rights Reserved Reading location - IP/workstation name: [email or web address]
== END ==
LOC: RAD 12:38
PROVIDERS: ATTEND Family Medicine
DX: M79.603 Pain in arm, unspecified (principal); R20.0 Anesthesia of skin
CPT/HCPCS: 72141

== ENCOUNTER 2019-09-03 10:33 | Emergency (ER) | payer MEDICAID, OTHER ==
--- NOTE | 2019-09-03 11:10 | ER Document Report ---
ED Medical Screen (RME) - General Chief Complaint: Medication Refill Stated Complaint: LIGHTHEADED/MED REFILL,INSULIN Time Seen by Provider: 09/03/19 11:00 Primary Care Provider: GAMAL SUTHERLAND MD [Primary Care Provider] - Follow up as needed Notes: Patient is a 58-year-old male with a history of diabetes who presents emergency department with a chief complaint of lightheadedness. Patient reports over the past 5 days he has passed out twice. Patient reports he feels like his blood sugar is elevated. Patient lost his meter and is unable to check his blood sugar. Patient is also out of his Lantus and NovoLog. Patient reports he does have a appointment with Dr. Sutherland at the end of the month but cannot get refills. Patient reports yesterday he fell and blacked out hitting the left side of his head on the floor. Patient also complains of right chest wall pain. TRAVEL OUTSIDE OF THE [place] IN LAST 30 DAYS: No - Related Data Allergies/Adverse Reactions: No Known Allergies Allergy (Verified 09/03/19 10:46) Home Medications: realo/yopp Past Medical History - Social History Chew tobacco use (# tins/day): No Frequency of alcohol use: Social Drug Abuse: Cocaine - Past Medical History Cardiac Medical History: Reports: Hx Hypertension Denies: Hx Coronary Artery Disease, Hx Heart Attack Pulmonary Medical History: Denies: Hx Asthma, Hx Bronchitis, Hx COPD, Hx Pneumonia, Hx Tuberculosis Neurological Medical History: Denies: Hx Cerebrovascular Accident, Hx Seizures Endocrine Medical History: Reports: Hx Diabetes Mellitus Type 1, Hx Diabetes Mellitus Type 2 Renal/ Medical History: Denies: Hx End Stage Renal Disease, Hx Peritoneal Dialysis, Hx Renal Insufficiency GI Medical History: Denies: Hx Diverticulitis, Hx Gastritis, Hx Gastroesophageal Reflux Disease Musculoskeltal Medical History: Denies Hx Arthritis, Denies Hx Gout Skin Medical History: Reports Hx MRSA Psychiatric Medical History: Denies: Hx Depression Past Surgical History: Reports: Hx Orthopedic Surgery - RIGHT THUMB, left leg - Immunizations Immunizations up to date: No Hx Diphtheria, Pertussis, Tetanus Vaccination: No - >5 yrs ago Physical Exam - Vital signs Vitals: Temp Pulse Resp BP Pulse Ox 97.8 F 88 19 106/68 98 09/03/19 10:41 09/03/19 10:41 09/03/19 10:41 09/03/19 10:41 09/03/19 10:41 - HEENT Head: Normocephalic Eyes: Normal Conjunctiva: Normal Cornea: Normal Eyelashes: Normal Pupils: PERRL Course - Re-evaluation Re-evalutation: 09/03/19 11:09 I have greeted and performed a rapid initial assessment of this patient. A comprehensive ED assessment and evaluation of the patient, analysis of test results and completion of the medical decision making process will be conducted by additional ED providers. - Vital Signs Vital signs: Temp Pulse Resp BP Pulse Ox 97.8 F 88 19 106/68 98 09/03/19 10:41 09/03/19 10:41 09/03/19 10:41 09/03/19 10:41 09/03/19 10:41 Doctor's Discharge - Discharge Referrals: GAMAL SUTHERLAND MD [Primary Care Provider] - Follow up as needed
[2019-09-03 11:32] LABS: ABSOLUTE EOSINOPHILS # (AUTO) 0.2 10^3/uL (0.0-0.6); ABSOLUTE LYMPHOCYTES (AUTO) 1.7 10^3/uL (0.5-4.7); ABSOLUTE MONOCYTES (AUTO) 0.5 10^3/uL (0.1-1.4); ABSOLUTE NEUT (AUTO) 3.7 10^3/uL (1.7-8.2); BASOPHILS % (AUTO) 0.7 % (0-2); EOSINOPHILS % (AUTO) 2.7 % (0-6); HEMATOCRIT 39.7 % (37.9-51.0); HEMOGLOBIN 13.2 g/dL (13.5-17.0); LYMPHOCYTES % (AUTO) 27.8 % (13-45); MEAN CORPUSCULAR HEMOGLOBIN 29.1 pg (27.0-33.4); MEAN CORPUSCULAR HGB CONC 33.2 g/dL (32.0-36.0); MEAN CORPUSCULAR VOLUME 88 fl (80-97); MONOCYTES % (AUTO) 8.4 % (3-13); PLATELET COUNT 234 10^3/uL (150-450); RED BLOOD COUNT 4.54 10^6/uL (4.35-5.55); RED CELL DISTRIBUTION WIDTH 14.3 % (11.5-14.0); SEGMENTED NEUTROPHILS % (AUTO) 60.4 % (42-78); TOTAL CELLS COUNTED % (AUTO) 100 %; WHITE BLOOD COUNT 6.1 10^3/uL (4.0-10.5)
--- NOTE | 2019-09-03 11:47 | RADIOLOGY REPORT (SQ) ---
EXAM DESCRIPTION: CT HEAD WITHOUT COMPLETED DATE/TIME: 09/03/2019 11:37 am REASON FOR STUDY: Syncope, hit left head COMPARISON: CT of the head without contrast from 08/05/2016. TECHNIQUE: Axial images acquired through the brain without intravenous contrast. Images reviewed wi th bone, brain and subdural windows. Additional sagittal and coronal reconstructions were generated. Images stored on PACS. All CT scanners at this facility use dose modulation, iterative reconstruction, and/or weight based d osing when appropriate to reduce radiation dose to as low as reasonably achievable (ALARA). [facility]: Dose Right [facility]: CareDose [facility]: Dose Right [facility]: Teradose 4D [facility]: Explara RADIATION DOSE: CT Rad equipment meets quality standard of care and radiation dose reduction techniq ues were employed. CTDIvol: 53.2 mGy. DLP: 964 mGy-cm. LIMITATIONS: None. FINDINGS: There is no acute intracranial hemorrhage, vascular territorial infarct, extra-axial fluid collection, mass effect or midline shift. There is no effacement of the cerebral sulci or basal sub arachnoid cisterns. The sanchez-white matter differentiation is preserved. The caliber the ventricles is concordant with the degree of sulcation. The orbits and globes are intact. The paranasal sinuses are clear. There is no fracture of the calv arium. IMPRESSION: No acute intracranial abnormality. EVIDENCE OF ACUTE STROKE: NO. COMMENT: Quality ID # [id number]: Final reports with documentation of one or more dose reduction techniques (e.g., Automated exposure control, adjustment of the mA and/or kV according to patient size, use of iterative reconstruction technique) TECHNICAL DOCUMENTATION: JOB ID: [id number] 2010 [employer]- All Rights Reserved Reading location - IP/workstation name: [email or web address]
[2019-09-03 11:53] LABS: ALBUMIN 4.2 g/dL (3.5-5.0); ALKALINE PHOSPHATASE 114 U/L (38-126); ANION GAP 7 (5-19); ASPARTATE AMINO TRANSFERASE 20 U/L (17-59); BILIRUBIN,TOTAL 0.3 mg/dL (0.2-1.3); BLOOD UREA NITROGEN 13 mg/dL (7-20); CALCIUM 9.7 mg/dL (8.4-10.2); CARBON DIOXIDE 30 mmol/L (22-30); CHLORIDE 102 mmol/L (98-107); GLUCOSE 281 mg/dL (75-110); POTASSIUM 4.7 mmol/L (3.6-5.0); TOTAL PROTEIN 7.6 g/dL (6.3-8.2)
[2019-09-03] MEDS ORDERED: NORMAL SALINE 1000 ML 1,000 ML IV ONE ×2 (13:09→13:52)
[2019-09-03] MEDS ORDERED: INSULIN REG, HUMAN 100 UNIT/ML 3 ML VIAL (PYX) SUBCUT ONE (13:09)
--- NOTE | 2019-09-03 13:13 | ER Document Report ---
ED General - General Chief Complaint: Medication Refill Stated Complaint: LIGHTHEADED/MED REFILL,INSULIN Time Seen by Provider: 09/03/19 11:00 Primary Care Provider: GAMAL SUTHERLAND MD [Primary Care Provider] - Follow up as needed Mode of Arrival: Ambulatory Information source: Patient TRAVEL OUTSIDE OF THE [place] IN LAST 30 DAYS: No - HPI Onset: Other - over the last week Onset/Duration: Gradual Quality of pain: No pain Severity: Moderate Pain Level: Denies Associated symptoms: Other - syncope x 2, dizziness Exacerbated by: Standing Relieved by: Denies Similar symptoms previously: No Recently seen / treated by doctor: No Notes: 58 year old male with a history of DM and HTN who has been out of his medications for about 1 week here for dizziness and two syncopal events yesterday. The patient thinks his sugar being up could be part of the problem but he has never passed out from that before. The patient denies chest pain or shortness of breath with his syncopal events. Both events happened when standing up. The patient denies recent fevers, chills, sweats, nausea, vomiting, diarrhea. The patient says he will be unable to get his medications until the . - Related Data Allergies/Adverse Reactions: No Known Allergies Allergy (Verified 09/03/19 10:46) Home Medications: realo/yopp Past Medical History - General Information source: Patient - Social History Smoking Status: Current Every Day Smoker Chew tobacco use (# tins/day): No Frequency of alcohol use: Social Drug Abuse: Cocaine Family History: Reviewed & Not Pertinent, CAD, DM, Hypertension Patient has suicidal ideation: No Patient has homicidal ideation: No - Past Medical History Cardiac Medical History: Reports: Hx Hypertension - unmedicated Denies: Hx Coronary Artery Disease, Hx Heart Attack Pulmonary Medical History: Denies: Hx Asthma, Hx Bronchitis, Hx COPD, Hx Pneumonia, Hx Tuberculosis Neurological Medical History: Denies: Hx Cerebrovascular Accident, Hx Seizures Endocrine Medical History: Reports: Hx Diabetes Mellitus Type 1, Hx Diabetes Divine litus Type 2 Renal/ Medical History: Denies: Hx End Stage Renal Disease, Hx Peritoneal Dialysis, Hx Renal Insufficiency GI Medical History: Denies: Hx Diverticulitis, Hx Gastritis, Hx Gastroesophageal Reflux Disease Musculoskeletal Medical History: Denies Hx Arthritis, Denies Hx Gout Skin Medical History: Reports Hx MRSA Psychiatric Medical History: Denies: Hx Depression Past Surgical History: Reports: Hx Orthopedic Surgery - RIGHT THUMB, left leg - Immunizations Immunizations up to date: No Hx Diphtheria, Pertussis, Tetanus Vaccination: No - >5 yrs ago Review of Systems - Review of Systems Constitutional: Other - high blood sugars EENT: No symptoms reported Cardiovascular: Syncope Respiratory: No symptoms reported Gastrointestinal: No symptoms reported Genitourinary: No symptoms reported Male Genitourinary: No symptoms reported Musculoskeletal: No symptoms reported Skin: No symptoms reported Hematologic/Lymphatic: No symptoms reported Neurological/Psychological: No symptoms reported -: Yes All other systems reviewed and negative Physical Exam - Vital signs Vitals: Temp Pulse Resp BP Pulse Ox 97.8 F 88 19 106/68 98 09/03/19 10:41 09/03/19 10:41 09/03/19 10:41 09/03/19 10:41 09/03/19 10:41 - Notes Notes: GENERAL: Well-appearing, well-nourished and in no acute distress. HEAD: Atraumatic, normocephalic. EYES: Pupils equal round and reactive to light, extraocular movements intact, sclera anicteric, conjunctiva are normal. ENT: Nares patent, oropharynx clear without exudates. Moist mucous membranes. NECK: Normal range of motion, supple without lymphadenopathy or JVD. LUNGS: Breath sounds clear to auscultation bilaterally and equal. No wheezes rales or rhonchi. HEART: Regular rate and rhythm without murmurs, rubs or gallops. ABDOMEN: Soft, nontender, normoactive bowel sounds. No guarding, no rebound. No masses appreciated. EXTREMITIES: Normal range of motion, no pitting or edema. No clubbing or cyanosis. NEUROLOGICAL: Cranial nerves II through XII grossly intact. Normal speech, normal gait. PSYCH: Normal mood, normal affect. SKIN: Warm, Dry, normal turgor, no rashes or lesions noted. Course - Re-evaluation Re-evalutation: 09/03/19 13:36 The patient is here with high blood sugars in the setting of being out of his medications for the last week. The patient has also had 2 syncopal events yesterday which happened when he stood fast. The patient's labs show hyperglycemia. Patient treated with fluids and insulin. 09/03/19 15:35 The patient was very orthostatic in the ER making dehydration/volume depletion and orthostasis the most likely cause of his syncopal events. Patient given 2L of IV fluids in the ER. Patient told he needs to follow up with a PCP for management of his chronic diseases (DM and HTN). - Vital Signs Vital signs: Temp Pulse Resp BP Pulse Ox 97.8 F 77 18 117/93 H 100 09/03/19 10:41 09/03/19 13:40 09/03/19 14:01 09/03/19 14:01 09/03/19 14:01 - Laboratory Result Diagrams: 09/03/19 11:12 09/03/19 11:12 Laboratory results interpreted by me: 09/03/19 09/03/19 09/03/19 11:12 11:12 11:22 Hgb 13.2 L RDW 14.3 H Glucose 281 H POC Glucose 263 H Urine Glucose (UA) Urine Ketones 09/03/19 09/03/19 13:53 15:23 Hgb RDW Glucose POC Glucose 138 H Urine Glucose (UA) >=500 H Urine Ketones TRACE H - EKG Interpretation by Me EKG shows normal: Sinus rhythm, [place], Intervals, QRS Complexes, ST-T Waves Rate: Normal Rhythm: NSR Voltage: Consistant with LVH When compared to previous EKG there are: No significant change Discharge - Discharge Clinical Impression: Hyperglycemia, Orthostasis, Dehydration Disposition: HOME, SELF-CARE Instructions: Hyperglycemia ([facility]), Orthostatic Hypotension ([facility]) Additional Instructions: Drink plenty of fluids in the days to come. Follow up with a primary care doctor for management of your diabetes and hypertension. If you dont have a primary care doctor, follow up with one of the Doctors listed in your paperwork. Referrals: GAMAL SUTHERLAND MD [Primary Care Provider] - Follow up as needed ROYA PARTIDA MD [ACTIVE STAFF] - Follow up as needed ALINE GLASGOW MD [ACTIVE STAFF] - Follow up as needed
[2019-09-03 14:27] LABS: APPEARANCE,URINE CLEAR; BILIRUBIN,URINE NEGATIVE (NEGATIVE); COLOR,URINE YELLOW; GLUCOSE, URINE >=500 mg/dL (NEGATIVE); KETONES,URINE TRACE mg/dL (NEGATIVE); LEUKOCYTE ESTERASE,URINE NEGATIVE (NEGATIVE); NITRITE,URINE NEGATIVE (NEGATIVE); PROTEIN,URINE NEGATIVE (NEGATIVE); URINE SPECIFIC GRAVITY 1.024; UROBILINOGEN,URINE NEGATIVE mg/dL (<2.0)
[2019-09-03 14:45] LABS: URINE AMPHETAMINES SCREEN NEGATIVE; URINE BARBITURATES SCREEN NEGATIVE; URINE BENZODIAZEPINES SCREEN NEGATIVE; URINE MARIJUANA (THC) SCREEN NEGATIVE; URINE METHADONE SCREEN NEGATIVE; URINE PHENCYCLIDINE SCREEN NEGATIVE
[2019-09-03 14:49] LABS: URINE COCAINE SCREEN UNCONFIRMED POSITIVE
[2019-09-03 16:19] VITALS: BP 142/91
--- NOTE | 2019-09-03 18:35 | EKG REPORT ---
SEVERITY:- ABNORMAL ECG - SINUS RHYTHM CONSIDER LEFT VENTRICULAR HYPERTROPHY : Confirmed by: Jose Alberto Alegre 03-Sep-2019 18:34:34
== END 2019-09-03 16:19 | disposition home or self-care (01) ==
LOC: ER 10:33
DX: E11.65 Type 2 diabetes mellitus with hyperglycemia (principal); T38.3X6A Underdosing of insulin and oral hypoglycemic [antidiabetic] drugs, initial encounter; Z91.128 Patient's intentional underdosing of medication regimen for other reason; Z91.14 Patient's other noncompliance with medication regimen; I10 Essential (primary) hypertension; E86.0 Dehydration; R55 Syncope and collapse; R42 Dizziness and giddiness; F14.10 Cocaine abuse, uncomplicated; F17.200 Nicotine dependence, unspecified, uncomplicated
CPT/HCPCS: 99284; 96360; 36415; 82962; 85025; 80053; 81001; 84484; 80307; 70450; 93005; 93010; J1815; J7030

== ENCOUNTER 2020-03-24 21:14 | Emergency (ER) | payer MEDICAID ==
--- NOTE | 2020-03-24 21:32 | ER Document Report ---
ED Medical Screen (RME) - General Chief Complaint: High Blood Sugar Stated Complaint: DIZZY,ELEVATED BLOOD SUGAR Time Seen by Provider: 03/24/20 21:24 Primary Care Provider: GAMAL SUTHERLAND MD [Primary Care Provider] - Follow up as needed TRAVEL OUTSIDE OF THE [place] IN LAST 30 DAYS: No - HPI Notes: 03/24/20 21:32 59-year-old male with history of diabetes insulin-dependent to the emergency department with complaints of dizziness, elevated blood sugar reading, chest pain that began couple days ago and is gotten worse. He states he has not been taking his insulin as he typically should. He states that has not had fever or chills. He admits that he was vomiting yesterday and had diarrhea for the past several days. He describes a vague abdominal pain. He states he had chest pain yesterday. He does use cocaine regularly and his last use was today. He also uses alcohol and smokes. He states that his glucometer reading was high and so he came into the emergency department. He denies any other complaints. I performed a brief medical screening exam on the patient determined that the patient needs further evaluation and management by main side provider. I have placed initial orders to help expedite care. - Related Data Allergies/Adverse Reactions: No Known Allergies Allergy (Verified 09/03/19 10:46) Past Medical History - Past Medical History Cardiac Medical History: Reports: Hx Hypertension - unmedicated Denies: Hx Coronary Artery Disease, Hx Heart Attack Pulmonary Medical History: Denies: Hx Asthma, Hx Bronchitis, Hx COPD, Hx Pneumonia, Hx Tuberculosis Neurological Medical History: Denies: Hx Cerebrovascular Accident, Hx Seizures Endocrine Medical History: Reports: Hx Diabetes Mellitus Type 1, Hx Diabetes Mellitus Type 2 Renal/ Medical History: Denies: Hx End Stage Renal Disease, Hx Peritoneal Dialysis, Hx Renal Insufficiency GI Medical History: Denies: Hx Diverticulitis, Hx Gastritis, Hx Gastroesophageal Reflux Disease Musculoskeltal Medical History: Denies Hx Arthritis, Denies Hx Gout Skin Medical History: Reports Hx MRSA Psychiatric Medical History: Denies: Hx Depression Past Surgical History: Reports: Hx Orthopedic Surgery - RIGHT THUMB, left leg - Immunizations Immunizations up to date: No Hx Diphtheria, Pertussis, Tetanus Vaccination: No - >5 yrs ago Doctor's Discharge - Discharge Referrals: GAMAL SUTHERLAND MD [Primary Care Provider] - Follow up as needed
[2020-03-24] MEDS ORDERED: NORMAL SALINE 1000 ML 1,000 ML IV ONE (21:33)
[2020-03-24] MEDS: NORMAL SALINE 1000 ML 1,000 ML IV PRN ×2 (22:10→23:14)
--- NOTE | 2020-03-24 22:21 | ER Document Report ---
ED General - General Chief Complaint: High Blood Sugar Stated Complaint: DIZZY,ELEVATED BLOOD SUGAR Time Seen by Provider: 03/24/20 21:24 Primary Care Provider: GAMAL SUTHERLAND MD [Primary Care Provider] - Follow up as needed Notes: Patient presents with polydipsia polyuria generalized weakness could have been insulin 2 to 3 days. "He ran out. No belly pain no nausea no vomiting decreased oral intake present. No fever no skin infection or other infectious symptoms. Covert exposure. He takes NovoLog 10 with a sliding scale 3 times a day and Lantus 20 5 at night renal both. TRAVEL OUTSIDE OF THE [place] IN LAST 30 DAYS: No - Related Data Allergies/Adverse Reactions: No Known Allergies Allergy (Verified 09/03/19 10:46) Home Medications: novalog, lantus Past Medical History - General Information source: Patient - Social History Smoking Status: Current Every Day Smoker Frequency of alcohol use: qod Drug Abuse: Cocaine Family History: Reviewed & Not Pertinent, CAD, DM, Hypertension - Past Medical History Cardiac Medical History: Reports: Hx Hypertension - unmedicated Denies: Hx Coronary Artery Disease, Hx Heart Attack Pulmonary Medical History: Denies: Hx Asthma, Hx Bronchitis, Hx COPD, Hx Pneumonia, Hx Tuberculosis Neurological Medical History: Denies: Hx Cerebrovascular Accident, Hx Seizures Endocrine Medical History: Reports: Hx Diabetes Mellitus Type 1, Hx Diabetes Mellitus Type 2 Renal/ Medical History: Denies: Hx End Stage Renal Disease, Hx Peritoneal Dialysis, Hx Renal Insufficiency GI Medical History: Denies: Hx Diverticulitis, Hx Gastritis, Hx Gastroesophageal Reflux Disease Musculoskeletal Medical History: Denies Hx Arthritis, Denies Hx Gout Skin Medical History: Reports Hx MRSA Psychiatric Medical History: Denies: Hx Depression Past Surgical History: Reports: Hx Orthopedic Surgery - RIGHT THUMB, left leg - Immunizations Immunizations up to date: No Hx Diphtheria, Pertussis, Tetanus Vaccination: No - >5 yrs ago Review of Systems - Review of Systems Notes: REVIEW OF SYSTEMS GEN: Has polydipsia polyuria ENT: Denies sore throat, nasal discharge, ear pain EYES: Denies blurry vision, eye pain, discharge CV: Denies chest pain, palpitations, edema RESP: Denies cough, shortness of breath, wheezing GI: Denies abdominal pain, nausea, vomiting, diarrhea MSK: Denies joint pain/swelling, edema, SKIN: Denies rash, skin lesions LYMPH: Denies swollen glands/lymph nodes NEURO: Denies headache, focal weakness or numbness, dizziness PSYCH: Denies depression, suicidal or homicidal ideation PHYSICAL EXAMINATION General: Mild distress Head: Atraumatic, normocephalic ENT: Mouth normal, oropharynx moist, no exudates or tonsillar enlargement Eyes: Conjunctiva normal, pupils equal, lids normal Neck: No JVD, supple, no guarding CVS: Cardiac Resp: Tachypnea clear breath sounds GI: Nondistended, soft, no tenderness to palpation, no rebound or guarding Ext: No deformities, no edema, normal range of motion in upper and lower ext Back: No CVA or midline TTP Skin: No rash, warm Lymphatic: No lymphadeopathy noted Neuro: Awake, alert. Face symmetric. GCS 15. Physical Exam - Vital signs Vitals: Temp Pulse Resp BP Pulse Ox 97.7 F 94 16 108/69 98 03/24/20 21:36 03/24/20 21:36 03/24/20 21:36 03/24/20 21:36 03/24/20 21:36 Course - Re-evaluation Re-evalutation: 03/25/20 00:33 Patient presents with high blood sugar and dehydration. Noncompliant with insulin Given 2 L of fluid and small insulin dose sugar came down to 300. No gap. No A KI. No infection. Re-prescribe Lantus and NovoLog he has sliding scale inability to get the medication will be discharged home to follow-up with his primary. - Vital Signs Vital signs: Temp Pulse Resp BP Pulse Ox 97.7 F 94 22 H 147/83 H 100 03/24/20 21:36 03/24/20 21:36 03/24/20 23:00 03/24/20 22:00 03/24/20 23:00 - Laboratory Result Diagrams: 03/24/20 22:09 03/24/20 22:09 Laboratory results interpreted by me: 03/24/20 03/24/20 03/25/20 22:09 23:31 00:20 Sodium 135.1 L Chloride 94 L Carbon Dioxide 31 H Glucose 645 H* POC Glucose 470 H* 235 H Alkaline Phosphatase 129 H Discharge - Discharge Clinical Impression: Hyperglycemia, Dehydration Type 1 diabetes mellitus Qualifiers: Diabetes mellitus complication status: with hyperglycemia Qualified Code(s): E10.65 - Type 1 diabetes mellitus with hyperglycemia Condition: Good Disposition: HOME, SELF-CARE Instructions: Hyperglycemia ([facility]) Prescriptions: Insulin Glargine,Hum.rec.anlog [Lantus Insulin 100 Unit/mL Insulin Pen] 25 unit SUBCUT QHS #10 ml Insulin Aspart [Novolog Flexpen] 10 unit SUBCUT .SLD SCALE #1 pen Referrals: GAMAL SUTHERLAND MD [Primary Care Provider] - Follow up as needed
[2020-03-24 22:24] LABS: ABSOLUTE EOSINOPHILS # (AUTO) 0.1 10^3/uL (0.0-0.6); ABSOLUTE MONOCYTES (AUTO) 0.4 10^3/uL (0.1-1.4); ABSOLUTE NEUT (AUTO) 3.7 10^3/uL (1.7-8.2); BASOPHILS % (AUTO) 0.7 % (0-2); EOSINOPHILS % (AUTO) 1.4 % (0-6); HEMATOCRIT 40.5 % (37.9-51.0); HEMOGLOBIN 13.7 g/dL (13.5-17.0); LYMPHOCYTES % (AUTO) 32.2 % (13-45); MEAN CORPUSCULAR HEMOGLOBIN 30.9 pg (27.0-33.4); MEAN CORPUSCULAR HGB CONC 33.8 g/dL (32.0-36.0); MEAN CORPUSCULAR VOLUME 92 fl (80-97); MONOCYTES % (AUTO) 6.2 % (3-13); PLATELET COUNT 264 10^3/uL (150-450); RED BLOOD COUNT 4.42 10^6/uL (4.35-5.55); RED CELL DISTRIBUTION WIDTH 13.2 % (11.5-14.0); SEGMENTED NEUTROPHILS % (AUTO) 59.5 % (42-78); TOTAL CELLS COUNTED % (AUTO) 100 %; WHITE BLOOD COUNT 6.2 10^3/uL (4.0-10.5)
[2020-03-24 22:35] LABS: PROTHROMBIN TIME 12.4 SEC (11.4-15.4)
[2020-03-24 22:36] LABS: PARTIAL THROMBOPLASTIN TIME 30.6 SEC (23.5-35.8)
[2020-03-24 22:38] LABS: VENOUS BLOOD BASE EXCESS 2.3 mmol/L; VENOUS BLOOD HCO3 29.5 mmol/L (20-32); VENOUS BLOOD PCO2 56.1 mmHg (35-63); VENOUS BLOOD PH 7.34 (7.30-7.42)
[2020-03-24 22:47] LABS: ALBUMIN 4.3 g/dL (3.5-5.0); ALKALINE PHOSPHATASE 129 U/L (38-126); ANION GAP 10 (5-19); ASPARTATE AMINO TRANSFERASE 28 U/L (17-59); BILIRUBIN,DIRECT 0.3 mg/dL (0.0-0.4); BILIRUBIN,TOTAL 0.4 mg/dL (0.2-1.3); BLOOD UREA NITROGEN 17 mg/dL (7-20); CALCIUM 9.8 mg/dL (8.4-10.2); CARBON DIOXIDE 31 mmol/L (22-30); CHLORIDE 94 mmol/L (98-107); POTASSIUM 4.4 mmol/L (3.6-5.0); TOTAL PROTEIN 7.8 g/dL (6.3-8.2)
[2020-03-24 23:00] LABS: GLUCOSE 645 mg/dL (75-110)
[2020-03-24] MEDS ORDERED: INSULIN REG, HUMAN 100 UNIT/ML 3 ML VIAL (PYX) IV ONE ×2 (23:14→23:33)
[2020-03-25 00:44] VITALS: BP 144/93
--- NOTE | 2020-03-25 08:52 | EKG REPORT ---
SEVERITY:- ABNORMAL ECG - SINUS RHYTHM : Confirmed by: Guillaume Sauer MD 25-Mar-2020 08:51:35
== END 2020-03-25 00:32 | disposition home or self-care (01) ==
LOC: ER 21:14
DX: E10.65 Type 1 diabetes mellitus with hyperglycemia (principal); E86.0 Dehydration; R42 Dizziness and giddiness; R63.1 Polydipsia; R35.8 Other polyuria; R53.1 Weakness; Z79.4 Long term (current) use of insulin; F17.200 Nicotine dependence, unspecified, uncomplicated
CPT/HCPCS: 93005; 99284; 96361; 96374; 36415; 82962; 83735; 85025; 85610; 85730; 80053; 84484; 82803; 93010; J1815; J7030

== ENCOUNTER 2020-03-28 18:27 | Emergency (ER) | payer MEDICAID ==
[2020-03-28 18:47] VITALS: BP 133/83
== END 2020-03-28 19:29 | disposition left against medical advice (07) ==
LOC: ER 18:27
DX: Z53.21 Procedure and treatment not carried out due to patient leaving prior to being seen by health care provider (principal)

== ENCOUNTER 2020-04-06 11:15 | Emergency (ER) | payer MEDICAID ==
[2020-04-06] MEDS ORDERED: NORMAL SALINE 1000 ML 1,000 ML IV ONE ×2 (11:57→18:02)
[2020-04-06 11:58] LABS: ABSOLUTE EOSINOPHILS # (AUTO) 0.1 10^3/uL (0.0-0.6); ABSOLUTE NEUT (AUTO) 3.7 10^3/uL (1.7-8.2); TOTAL CELLS COUNTED % (AUTO) 100 %
[2020-04-06] MEDS ORDERED: ONDANSETRON HCL INJ/PF 4 MG/2 ML SDV IV ONE (11:58)
[2020-04-06 12:05] LABS: ABSOLUTE LYMPHOCYTES (AUTO) 1.7 10^3/uL (0.5-4.7); ABSOLUTE MONOCYTES (AUTO) 0.5 10^3/uL (0.1-1.4); BASOPHILS % (AUTO) 0.8 % (0-2); EOSINOPHILS % (AUTO) 1.7 % (0-6); HEMATOCRIT 36.4 % (37.9-51.0); HEMOGLOBIN 12.4 g/dL (13.5-17.0); LYMPHOCYTES % (AUTO) 28.2 % (13-45); MEAN CORPUSCULAR HEMOGLOBIN 30.9 pg (27.0-33.4); MEAN CORPUSCULAR HGB CONC 34.2 g/dL (32.0-36.0); MEAN CORPUSCULAR VOLUME 91 fl (80-97); MONOCYTES % (AUTO) 8.7 % (3-13); PLATELET COUNT 268 10^3/uL (150-450); RED BLOOD COUNT 4.02 10^6/uL (4.35-5.55); RED CELL DISTRIBUTION WIDTH 13.1 % (11.5-14.0); SEGMENTED NEUTROPHILS % (AUTO) 60.6 % (42-78)
[2020-04-06 12:13] LABS: ALBUMIN 3.8 g/dL (3.5-5.0); ALKALINE PHOSPHATASE 110 U/L (38-126); ANION GAP 7 (5-19); ASPARTATE AMINO TRANSFERASE 25 U/L (17-59); BILIRUBIN,DIRECT 0.3 mg/dL (0.0-0.4); BILIRUBIN,TOTAL 0.6 mg/dL (0.2-1.3); BLOOD UREA NITROGEN 14 mg/dL (7-20); CALCIUM 9.6 mg/dL (8.4-10.2); CARBON DIOXIDE 29 mmol/L (22-30); CHLORIDE 102 mmol/L (98-107); GLUCOSE 288 mg/dL (75-110); POTASSIUM 4.7 mmol/L (3.6-5.0); TOTAL PROTEIN 7.1 g/dL (6.3-8.2)
[2020-04-06 12:15] LABS: ACETAMINOPHEN < 10 ug/mL (10-30); ALCOHOL < 10 mg/dL (NONE DETECTED); SALICYLATE < 1.0 mg/dL (2.0-20.0)
--- NOTE | 2020-04-06 12:42 | RADIOLOGY REPORT (SQ) ---
EXAM DESCRIPTION: ACUTE ABDOMEN SERIES IMAGES COMPLETED DATE/TIME: 04/06/2020 12:19 pm REASON FOR STUDY: overdose COMPARISON: Chest radiograph 07/12/2017 NUMBER OF VIEWS: Three views. TECHNIQUE: Frontal chest, supine abdomen and upright/decubitus abdomen radiographic images acquired. LIMITATIONS: None. FINDINGS: CHEST: Lungs clear of infiltrates. FREE AIR: None. No abnormal gas collections. BOWEL GAS PATTERN: Nonobstructive pattern. No dilated loops or air fluid levels. CALCIFICATIONS: No suspicious calcifications. HARDWARE: None in the abdomen. SOFT TISSUES: No gross mass or suggestion of organomegaly. BONES: No acute fracture. No worrisome bone lesions. Left femoral neck fixation hardware is partial ly visualized. OTHER: No other significant finding. IMPRESSION: No acute pulmonary process. Nonobstructive bowel gas pattern. TECHNICAL DOCUMENTATION: JOB ID: [id number] 2010 [employer]- All Rights Reserved Reading location - IP/workstation name: [email or web address]
[2020-04-06] MEDS ORDERED: LOPERAMIDE HCL 2 MG CAPSULE PO ONE (14:29)
[2020-04-06 15:11] LABS: APPEARANCE,URINE SLIGHTLY-CLOUDY; BILIRUBIN,URINE NEGATIVE (NEGATIVE); CALCIUM OXALATE CRYSTALS,URINE RARE /HPF; COLOR,URINE YELLOW; GLUCOSE, URINE >=500 mg/dL (NEGATIVE); KETONES,URINE NEGATIVE (NEGATIVE); LEUKOCYTE ESTERASE,URINE NEGATIVE (NEGATIVE); NITRITE,URINE NEGATIVE (NEGATIVE); PROTEIN,URINE 30 mg/dL (NEGATIVE); URINE SPECIFIC GRAVITY 1.018; UROBILINOGEN,URINE NEGATIVE mg/dL (<2.0)
[2020-04-06 15:20] LABS: URINE AMPHETAMINES SCREEN NEGATIVE; URINE BARBITURATES SCREEN NEGATIVE; URINE BENZODIAZEPINES SCREEN NEGATIVE; URINE MARIJUANA (THC) SCREEN NEGATIVE; URINE METHADONE SCREEN NEGATIVE; URINE PHENCYCLIDINE SCREEN NEGATIVE
[2020-04-06 15:23] LABS: URINE COCAINE SCREEN UNCONFIRMED POSITIVE
--- NOTE | 2020-04-06 16:00 | ER Document Report ---
Entered by CRISTOBAL KATZ SCRIBE 04/06/20 1147 Acting as scribe for:LEWIS LANE MD ED General - General Mode of Arrival: Stretcher Information source: Patient, Emergency Med Personnel TRAVEL OUTSIDE OF THE [place] IN LAST 30 DAYS: No <LEWIS LANE - Last Filed: 04/06/20 17:26> <RICKBRINA - Last Filed: 04/06/20 17:58> - General Stated Complaint: POSSIBLE OVERDOSE Primary Care Provider: GAMAL SUTHERLAND MD [Primary Care Provider] - Follow up as needed Notes: This 59 year old male patient presents to the ED today for evaluation of intentional overdose. A medical emergency was called out via overhead due to the patient being found passed out on the floor in the main lobby. Patient was immediately placed on a stretcher and wheeled back to trauma 1. He did ambulate to the ED prior to reportedly passing out on the floor. Patient states "I tried to kill myself" and that he took "some type of pills, about 5" that he found in an abandoned house this morning. He reports that there wasn't a label on the bottle, so he doesn't know what they were and that he feels like he is ready to . He admits to regular use of ETOH, cocaine, and heroin. He mentions that he usually drinks x1 40 oz beer everyday, none today and that he "smoked crack and snorted some heroine" last night. He reports a history of diabetes mellitus and states that he has not had any insulin in a couple of days. Denies headache or abdominal pain. He does note a burn to the tip of his nose, but doesn't remember how he got it. ([facility] L[address]) - Related Data Allergies/Adverse Reactions: No Known Allergies Allergy (Verified 09/03/19 10:46) Past Medical History - General Information source: Patient, [facility] Records - Social History Smoking Status: Unknown if Ever Smoked Smoking Education Provided: No Frequency of alcohol use: Heavy Drug Abuse: Cocaine, Heroin Family History: Reviewed & Not Pertinent, CAD, DM, Hypertension Patient has suicidal ideation: Yes Patient has homicidal ideation: No - Past Medical History Cardiac Medical History: Reports: Hx Hypertension - unmedicated Endocrine Medical History: Reports: Hx Diabetes Mellitus Type 1, Hx Diabetes Mellitus Type 2 Skin Medical History: Reports Hx MRSA Past Surgical History: Reports: Hx Orthopedic Surgery - RIGHT THUMB, left leg - Immunizations Immunizations up to date: No Hx Diphtheria, Pertussis, Tetanus Vaccination: No - >5 yrs ago <[address] - Last Filed: 04/06/20 17:26> Review of Systems - Review of Systems Constitutional: No symptoms reported EENT: No symptoms reported Cardiovascular: No symptoms reported Respiratory: No symptoms reported Gastrointestinal: See HPI. denies: Abdominal pain Genitourinary: No symptoms reported Male Genitourinary: No symptoms reported Musculoskeletal: No symptoms reported Skin: No symptoms reported Hematologic/Lymphatic: No symptoms reported Neurological/Psychological: See HPI, Suicidal ideation. denies: Headaches -: Yes All other systems reviewed and negative <LEWIS L[address] - Last Filed: 04/06/20 17:26> Physical Exam - Vital signs Interpretation: Normal - General General appearance: Alert In distress: None - HEENT Head: Normocephalic, Atraumatic Eyes: Normal Extraocular movements intact: Yes Pupils: PERRL Mucous membranes: Normal - Respiratory Respiratory status: No respiratory distress Chest status: Nontender Breath sounds: Normal Chest palpation: Normal - Cardiovascular Rhythm: Regular Heart sounds: Normal auscultation, S1 appreciated, S2 appreciated Murmur: No Friction rub: No Gallop: None auscultated - Abdominal Inspection: Normal Distension: No distension Bowel sounds: Normal Tenderness: Nontender - Abdomen soft Organomegaly: No organomegaly - Back Back: Normal, Nontender - Extremities General upper extremity: Normal inspection General lower extremity: Normal inspection. No: Edema - Neurological Neuro grossly intact: Yes Orientation: AAOx4 Cayden Coma Scale Eye Opening: Spontaneous Gomer Coma Scale Verbal: Oriented Cayden Coma Scale Motor: Obeys Commands Cayden Coma Scale Total: 15 - Psychological Associated symptoms: Normal affect, Normal mood - Skin Skin irregularity: other - 1st degree burn noted to the tip of the nose <LEWIS L[address] - Last Filed: 04/06/20 17:26> - Vital signs Vitals: BP Pulse Ox 144/88 H 97 04/06/20 11:18 04/06/20 11:18 Course - Laboratory Result Diagrams: 04/06/20 11:20 04/06/20 11:20 - Diagnostic Test Radiology reviewed: Image reviewed, Reports reviewed <LEWIS L[address] - Last Filed: 04/06/20 17:26> - Laboratory Result Diagrams: 04/06/20 11:20 04/06/20 11:20 <BRINA CABRERA - Last Filed: 04/06/20 17:58> - Re-evaluation Re-evalutation: 04/06/20 14:20 Patient is medically cleared at this time. Psych consult is pending. 04/06/20 17:26 Patient resting comfortably at this time. 04/06/20 17:30 Patient is medically cleared to be discharged home or to a mental health inpatient outpatient facility for further evaluation as of his substance abuse. Patient is not placed on involuntary commitment papers for his substance abuse patient has no convincing evidence that he is suicidal homicidal. ([facility] L[address]) - Vital Signs Vital signs: Temp Pulse Resp BP Pulse Ox 97.3 F 23 H 169/97 H 100 04/06/20 11:25 04/06/20 13:16 04/06/20 13:16 04/06/20 13:16 04/06/20 16:19 Vital signs stable. 04/06/20 17:26 Vital signs shows blood pressure 169/97 with a respiratory rate of 23. ([address]) - Laboratory Laboratory results interpreted by me: 04/06/20 04/06/20 04/06/20 11:20 11:20 11:20 RBC 4.02 L Hgb 12.4 L Hct 36.4 L Glucose 288 H POC Glucose 288 H Urine Protein Urine Glucose (UA) Urine Blood Salicylates < 1.0 L Acetaminophen < 10 L 04/06/20 04/06/20 14:33 17:42 RBC Hgb Hct Glucose POC Glucose 438 H* Urine Protein 30 H Urine Glucose (UA) >=500 H Urine Blood SMALL H Salicylates Acetaminophen 04/06/20 16:20 Blood sugars 288 and glucose in the urine with small amount of blood. 04/06/20 17:27 04/06/20 11:20 04/06/20 11:20 MCV 91 fl (80-97) 04/06/20 11:20 MCH 30.9 pg (27.0-33.4) 04/06/20 11:20 MCHC 34.2 g/dL (32.0-36.0) 04/06/20 11:20 RDW 13.1 % (11.5-14.0) 04/06/20 11:20 Seg Neutrophils % 60.6 % (42-78) 04/06/20 11:20 Chloride 102 mmol/L (98-107) 04/06/20 11:20 Carbon Dioxide 29 mmol/L (22-30) 04/06/20 11:20 Anion Gap 7 (5-19) 04/06/20 11:20 Est GFR ( Amer) > 60 (>60) 04/06/20 11:20 Glucose 288 mg/dL (75-110) H 04/06/20 11:20 Lactic Acid 0.9 mmol/L (0.7-2.1) 04/06/20 12:50 Calcium 9.6 mg/dL (8.4-10.2) 04/06/20 11:20 Total Bilirubin 0.6 mg/dL (0.2-1.3) 04/06/20 11:20 AST 25 U/L (17-59) 04/06/20 11:20 Alkaline Phosphatase 110 U/L (38-126) 04/06/20 11:20 Total Protein 7.1 g/dL (6.3-8.2) 04/06/20 11:20 Albumin 3.8 g/dL (3.5-5.0) 04/06/20 11:20 Lipase 36.9 U/L (23-300) 04/06/20 11:20 Urine Color YELLOW 04/06/20 14:33 Urine Appearance SLIGHTLY-CLOUDY 04/06/20 14:33 Urine pH 5.0 (5.0-9.0) 04/06/20 14:33 Ur Specific Vowinckel 1.018 04/06/20 14:33 Urine Protein 30 mg/dL (NEGATIVE) H 04/06/20 14:33 Urine Glucose (UA) >=500 mg/dL (NEGATIVE) H 04/06/20 14:33 Urine Ketones NEGATIVE mg/dL (NEGATIVE) 04/06/20 14:33 Urine Blood SMALL (NEGATIVE) H 04/06/20 14:33 Urine Nitrite NEGATIVE (NEGATIVE) 04/06/20 14:33 Ur Leukocyte Esterase NEGATIVE (NEGATIVE) 04/06/20 14:33 Urine WBC (Auto) 2 /HPF 04/06/20 14:33 Urine RBC (Auto) 51 /HPF 04/06/20 14:33 04/06/20 04/06/20 11:20 15:20 Troponin I < 0.012 < 0.012 Laboratory shows a serum glucose of 288 troponin x2- red blood cells noted in the urine positive cocaine on the urine drug screen. ([facility]) - Diagnostic Test Radiology results interpreted by me: 04/06/20 17:28 Acute Abdomen Series 04/06/20 11:59 IMPRESSION: No acute pulmonary process. Nonobstructive bowel gas pattern. Acute abdominal series shows no acute cardia cardiopulmonary problems on chest x-ray abdomen shows no acute process no obstruction. ([facility] [address]) - EKG Interpretation by Me Additional EKG results interpreted by me: 04/06/20 17:28 Twelve-lead EKG shows a normal sinus rhythm rate of [address]-T wave changes VT QRS and QT intervals within normal interval range no ST elevations to suggest ND: Normal axis. ([facility] L[address]) Discharge <[address] L[address] - Last Filed: 04/06/20 17:26> <BRINA CABRERA - Last Filed: 04/06/20 17:58> - Discharge Clinical Impression: Substance abuse, Insulin dependent diabetes mellitus, Hypertension Condition: Stable Disposition: HOME, SELF-CARE Additional Instructions: You have been evaluated both medical and behavioral health teams have been deemed appropriate for discharge. You are highly encouraged to follow through with substance abuse treatment. You have been received a local resource list of area providers including detox facilities, mobile crisis contact information, and economic resources and programs. There is currently no beds available at [facility] however they report you can contact them tonight after 11 PM to check availability and schedule self-referral intake interview. A referral for [facility] will be placed for you to assist in obtaining your diabetic medications. DEPRESSION: Your evaluation reveals that you have mental depression. While symptoms may be vague, they often include disturbance of sleep, fatigue, loss of appetite, and general loss of interest in life. While depression may be a side effect of drugs, or a reaction to a major change in your life, many cases have no known cause. If depression is acute, and related to a major loss in your life, you can expect it to clear completely with time. If you have been depressed a long time, are prone to repeated bouts of depression or low mood, or have been thinking of suicide, get help. Depression can be treated with anti-depressant medication and counselling. Long-term depression will often take a few weeks to clear, even with appropriate medication. Follow-up care is important. FOLLOW-UP CARE: If you have been referred to a physician for follow-up care, call the physicians office for an appointment as you were instructed or within the next two days.~ If you experience worsening or a significant change in your symptoms, notify the physician immediately or return to the Emergency Department at any time for re-evaluation. Referrals: GAMAL SUTHERLAND MD [Primary Care Provider] - Follow up as needed [facility] [Outside] - Follow up as needed I personally performed the services described in the documentation, reviewed and edited the documentation which was dictated to the scribe in my presence, and it accurately records my words and actions.
--- NOTE | 2020-04-06 17:56 | PSYCHOLOGICAL NOTE ---
Psych Note - Psych Note Date seen by psych provider: 04/06/20 Time seen by psych provider: 11:20 - 1st attempt [id number] Psych Note: Reason for Consult: reported overdose patient arrives to ed with a complaint of possible intentional overdose and feeling suicidal. patient noted to have "passed out" on arrival to the er in front of the registration desk. patient placed in stretcher to be brought to room, patient slow to respond states " i tried to kill myself, i took some pills last night" patient not answering questions to staff initially, patient noted to have had episode of bowel incontinence. patient clothing removed and placed in gown PCT attempted to straight cath the patient for urine, patient woke up screaming cuss words at staff. patient then states he wanted to kill himself because his mother told him hes a crack head. patient also states he wants to go to detox to get off the heroin and crack. Patient reports he came to [facility] ED because he "wanted to kill myself." He denies taking anything other than using cocaine and heroin last night. HE reports he has been depressed, but can't articulate why he has had increase in depression. When asked what [facility] can do to help the patient, he reports getting substance abuse treatment. When clinician discussed voluntary treatment at [facility], he stated "no there, they only keep you for 3 days and put you right back on the street." Patient confirms he wants residential treatment; however, when it was explained he will receive all resource information available, he stated "no you need to get me a bed.... You can just put me back on the street." It was explained to the patient, this is not an option, that part of the process for sobriety is making the calls and filling out the forms. It was explained that assistance can be provided but he would have to do the majority. Patient stated "that is not how it works." Clinician explained process again to confirm the patient would have to take the lead on his path to sobriety, it cannot be done for him. Patient stated he would no like to go to [facility]. Clinician contacted [facility]; they currently have no beds available; however, the patient can contact them after 11pm to request a self referral and have an intake interview. They note the patient has been to their facility on numerous occasions; so admission would be determined at intake interview (ie if he meets admission criteria). Patient is alert and orientated to person, place, time and circumstance. Clinician notes patient attempts to present as if he is sleeping and continues to "nod off." When asked what the patient was currently on, the patient became irritable, sat up and engaged fully stating "trying to sleep." Mood is overall euthymic however does become slightly irritable when not getting what he wants, affect is mood congruent. Patient presents with passive suicidal ideation i.e. there is currently no evidence the patient actually overdosed (intent) or has medications (means). Patient states he does not have any insulin. Patient denies homicidal ideation. Delusions are absent behaviors congruent with an intact reality based presentation ie organized and linear thought process. Patient can clearly articulate his needs and wants. Intellectual abilities appear to be within the average range. Attention and concentration is fair. Insight, judgment, impulse control is fair. Impression\\plan: Patient is cleared from acute psychiatric services. Patient is requesting detox assistance; resource list is will be provided for the patient. Currently there are no beds available at [facility]; however, he can contact them tonight after 11 PM to schedule a self-referral intake interview. Patient is noted to provide conflicting information and thought content appears to be geared towards secondary gain. Patient is also provided local resource list of economic resources which includes jail, food and economic programs. Dr. Amaya was consulted to care management of this patient; attending physicians in agreement with recommendations and disposition.
[2020-04-06] MEDS ORDERED: INSULIN REG, HUMAN 100 UNIT/ML 3 ML VIAL (PYX) IV ONE (17:57)
--- NOTE | 2020-04-06 20:27 | EKG REPORT ---
SEVERITY:- NORMAL ECG - SINUS RHYTHM : Confirmed by: Jose Alberto Alegre 06-Apr-2020 20:27:02
[2020-04-06 23:49] VITALS: BP 151/91
== END 2020-04-06 23:40 | disposition home or self-care (01) ==
LOC: ER 11:15
DX: T50.902A Poisoning by unspecified drugs, medicaments and biological substances, intentional self-harm, initial encounter (principal); X58.XXXA Exposure to other specified factors, initial encounter; F19.10 Other psychoactive substance abuse, uncomplicated; I10 Essential (primary) hypertension; E11.9 Type 2 diabetes mellitus without complications; Z86.14 Personal history of Methicillin resistant Staphylococcus aureus infection; Z79.4 Long term (current) use of insulin
CPT/HCPCS: 93005; 99285; 96361; 96374; 36415; 82962; 80307 ×4; 83605; 83690; 85025; 80053; 81001; 84484; 74022; 93010; J3490; J1815; J7030